=== PATIENT | male | born 1970 | race Caucasian/White ===

== ENCOUNTER 2017-10-04 16:07 | Observation (INO) | payer SELFPAY ==
[2017-10-04 16:27] LABS: #Basophils 0.1 thou/uL (0.0-0.2); #Eosinphils 0.2 thou/uL (0.0-0.7); #Lymphocytes 2.4 thou/uL (1.20-3.40); #Monocytes 0.5 thou/uL (0.11-0.59); #Neutrophils 5.1 thou/uL (1.40-6.50); %Basophils 0.9 % (0.0-1.0); %Eosinophils 2.2 % (0.0-10.0); %Lymphocytes 29.2 % (21.0-51.0); %Monocytes 5.9 % (0.0-10.0); %Neutrophils 61.8 % (42.0-75.0); Hemoglobin 13.6 g/dL (14.0-18.0); Mean Corpuscular Hemoglobin 32.8 pg (27.0-31.0); Mean Corpuscular Volume 96.5 fL (78.0-98.0); Mean Platelet Volume 7.3 fL (7.4-10.4); Platelet Count 267 thou/uL (130-400); RBC Distribution Width 12.1 % (11.5-14.5); Red Blood Cell (RBC) Count 4.16 mill/uL (4.70-6.10); White Blood Cell (WBC) Count 8.2 thou/uL (4.8-10.8)
--- NOTE | 2017-10-04 16:47 | RAD ---
CHEST ONE VIEW: History: Chest pain. FINDINGS: No comparison. Cardiac silhouette is magnified by projection. Pulmonary vasculature unremarkable. Med iastinum is midline. No lobar consolidation or evidence of pneumothorax. child monitor leads overli e the chest. IMPRESSION: No active cardiopulmonary abnormalities are demonstrated. POS: [facility]
[2017-10-04] MEDS ORDERED: Ketorolac Tromethamine 30 MG/ML VIAL ONE (16:49)
[2017-10-04] MEDS ORDERED: Acetaminophen 500 MG TAB ONE (16:49)
[2017-10-04 16:50] LABS: ALT (SGPT) 13 U/L (8-55); AST (SGOT) 12 U/L (5-34); Albumin 4.3 g/dL (3.5-5.0); Alkaline Phosphatase 81 U/L (40-150); Anion Gap 12 mmol/L (10-20); BUN (Urea Nitrogen) 16 mg/dL (8.9-20.6); Bilirubin, Total 0.2 mg/dL (0.2-1.2); CK (CPK) 233 U/L (30-200); Calc. Creatinine Clearance 0 mL/min (70-130); Carbon Dioxide 23 mmol/L (22-29); Chloride 109 mmol/L (98-107); Estimated GFR-MDRD Greater than 90; Globulin 2.6 g/dL (2.4-3.5); Glucose 109 mg/dL (70-105); Lipase 30 U/L (8-78); Potassium 4.1 mmol/L (3.5-5.1); Protein, Total 6.9 g/dL (6.0-8.3); Sodium 140 mmol/L (136-145)
[2017-10-04] MEDS ORDERED: Nitroglycerin 2% Ointment 1 INCH/1 GM Packet ONE (16:53)
[2017-10-04 16:54] LABS: CKMB 1.1 ng/mL (0-6.6); Troponin I Less than 0.010 ng/mL (< 0.028)
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
[2017-10-04 19:43] LABS: Troponin I Less than 0.010 ng/mL (< 0.028)
[2017-10-04] MEDS ORDERED: Ondansetron ODT 4 MG TAB PO PRN (19:46)
[2017-10-04] MEDS ORDERED: Ondansetron HCl/PF 4 MG/2 ML Vial IVP PRN (19:46)
[2017-10-04] MEDS ORDERED: Acetaminophen 325 MG TAB PO PRN (19:46)
[2017-10-04 23:01] LABS: Troponin I Less than 0.010 ng/mL (< 0.028)
[2017-10-04] MEDS ORDERED: Ibuprofen 800 MG TAB PO PRN (23:59)
[2017-10-05] MEDS ORDERED: Nitroglycerin 0.4 MG TAB (25 Tab Bottle) SL PRN
[2017-10-05 06:36] LABS: Cardiac Risk 7.1 (Less than 4.5); Phosphorus 2.6 mg/dL (2.3-4.7)
--- NOTE | 2017-10-05 07:40 | PDOC.FM ---
- Subjective Subjective: Complains of chest pain this am, worse with taking a deep breath in. States he had a stress test and prior cath were he was told that he had blockages but not significant enough to require a stent. - Objective MAR Reviewed: Yes Vital Signs & Weight: Vital Signs (12 hours) Pulse Resp BP Pulse Ox 10/05/17 05:10 53 L 18 122/78 97 Weight Weight 79.424 kg Result Diagrams: 10/04/17 16:17 10/04/17 16:17 <Joann Reyna - Last Filed: 10/05/17 09:08> - Objective Vital Signs & Weight: Vital Signs (12 hours) Temp Pulse Resp BP BP Pulse Ox 10/05/17 12:32 98.3 F 53 L 15 146/78 H 98 10/05/17 08:28 98.2 F 53 L 14 10/05/17 08:00 98.2 F 53 L 14 119/75 97 10/05/17 05:10 53 L 18 122/78 97 Weight Weight 79.424 kg Result Diagrams: 10/04/17 16:17 10/04/17 16:17 <Emilio Grijalva - Last Filed: 10/05/17 15:32> Phys Exam - Physical Examination Constitutional: NAD HEENT: PERRLA, moist MMs Respiratory: no wheezing, no rales, clear to auscultation bilateral Cardiovascular: RRR, no significant murmur Gastrointestinal: soft, non-tender, no distention Musculoskeletal: no edema, pulses present Neurological: non-focal, normal sensation, moves all 4 limbs Psychiatric: normal affect, A&O x 3 Skin: no rash <Joann Reyna - Last Filed: 10/05/17 09:08> Dx/Plan (1) Atypical chest pain Code(s): R07.89 - OTHER CHEST PAIN Status: Chronic (2) Coronary artery disease Code(s): I25.10 - ATHSCL HEART DISEASE OF [place] CORONARY ARTERY W/O ANG PCTRS Status: Chronic (3) HTN (hypertension) Code(s): I10 - ESSENTIAL (PRIMARY) HYPERTENSION Status: Chronic (4) History of myocardial infarction Code(s): I25.2 - OLD MYOCARDIAL INFARCTION Status: Chronic - Plan Plan: 47YO gentleman with a PMH significant for HTN, h/o [place], & CAD who presents with a chief complaint of chest pain that has been ongoing for the last 2 months, admitted for atypical chest pain. 1. Atypical Chest Pain: - Hrt Score of 4 -Hx of [place] with prior cath that did not require stent -Not compliant with statin -Trops negative x 3 - ECG reassuring with no acute ischemia changes. Will continue to monitor on telemetry overnight. - Stress test ordered -Prior records requested 2. Bradycardia: - HR of 58 on exam. - pt does endorse feeling lightheaded or dizzy with movement 3. h/o [place]: - Will start on QD ASA & high potency statin. -request records from prior hospital -stress test ordered 4. CAD: - Nursing communication order placed to request records from facilities where previous caths were done. - Will consider cardiology consult based on information that the records show us. - Will initiate meds as described above. 5. HTN: - Will watch BP for now. Latest on the floor was 158/89. Dispo: Admit for observation w/ estimated LOS ~2 days. DVT PPx: Lovenox GI PPx: None IVFs: None Diet: Heart Healthy; NPO after midnight. <Joann Reyna - Last Filed: 10/05/17 09:08> Attending Addendum - Attending Addendum Date/Time: 10/05/17 1531 I personally evaluated the patient and discussed the management with Dr. Lindsey [place]. I agree with the History, Examination, Assessment and Plan documented above with any addition or exceptions noted below. Patient with normal stress testing, no evidence of acute cardiac cause of his chest pain. Discharge and further workup in outpatient setting. <Emilio Grijalva - Last Filed: 10/05/17 15:32>
[2017-10-05] MEDS ORDERED: Regadenoson 0.4 MG/5 ML SYRINGE ONE (09:15)
[2017-10-05 12:37] VITALS: BP 146/78; TEMP 98.3
--- NOTE | 2017-10-05 13:18 | NM ---
RADIONUCLIDE STRESS REST MYOCARDIAL PERFUSION SCAN WITH CT ATTENUATION CORRECTION AND SPECT IMAGING LEFT VENTRICULAR WALL MOTION EVALUATION AND EJECTION FRACTION: History: Chest pain. FINDINGS: Homogeneous uptake throughout the left ventricular myocardium. No focal perfusion defect or reversibi lity. QGS analysis of gated SPECT images shows no focal wall motion abnormalities. Left ventricular injection fraction calculated at 59%. IMPRESSION: Normal myocardial perfusion scan. Normal LVEF. POS: [facility]
[2017-10-05] MEDS ORDERED: Ketorolac Tromethamine 30 MG/ML VIAL IM SCH (14:45)
[2017-10-05] MEDS ORDERED: Atorvastatin Calcium 40 MG TAB PO SCH (21:00)
--- NOTE | 2017-10-10 14:24 | EKG ---
Test Reason : Blood Pressure : / mmHG Vent. Rate : 074 BPM Atrial Rate : 074 BPM P-R Int : 160 ms QRS Dur : 090 ms QT Int : 380 ms P-R-T Axes : 071 031 055 degrees QTc Int : 421 ms Normal sinus rhythm Normal ECG Confirmed by JANES RIOS D.O. ([id number]), editor in chief newspaper CARMITA KEARNEY ([id number]) on 10/10/2017 2:24:06 PM Referred By: Confirmed By:JANES RIOS D.O.
== END 2017-10-05 15:07 | disposition home or self-care (01) ==
LOC: ERS 16:07 → 2SW 19:38
PROVIDERS: ADMIT Family Medicine; ATTEND Family Medicine
DX: R07.89 Other chest pain (principal); I10 Essential (primary) hypertension; I25.10 Atherosclerotic heart disease of native coronary artery without angina pectoris; I25.2 Old myocardial infarction; F17.210 Nicotine dependence, cigarettes, uncomplicated; Z88.8 Allergy status to other drugs, medicaments and biological substances
CPT/HCPCS: 36415; 71045; 78452; 80053; 80061; 82550; 82553; 83690; 83735; 84100; 84443; 84484; 85025; 93005; 93017; 94760; 96372; 96374; A9500; G0378; J1885; J2785

== ENCOUNTER 2017-10-26 18:33 | Inpatient (IN) | payer SELFPAY ==
[2017-10-26 21:22] LABS: #Basophils 0.1 thou/uL (0.0-0.2); #Eosinphils 0.1 thou/uL (0.0-0.7); #Lymphocytes 2.8 thou/uL (1.20-3.40); #Monocytes 0.5 thou/uL (0.11-0.59); #Neutrophils 4.8 thou/uL (1.40-6.50); %Basophils 0.7 % (0.0-1.0); %Eosinophils 1.6 % (0.0-10.0); %Lymphocytes 33.9 % (21.0-51.0); %Monocytes 6.2 % (0.0-10.0); %Neutrophils 57.6 % (42.0-75.0); Hemoglobin 13.2 g/dL (14.0-18.0); Mean Corpuscular HGB CONC 34.1 g/dL (32.0-36.0); Mean Corpuscular Volume 96.9 fL (78.0-98.0); Mean Platelet Volume 7.2 fL (7.4-10.4); Platelet Count 317 thou/uL (130-400); RBC Distribution Width 12.1 % (11.5-14.5); Red Blood Cell (RBC) Count 4.01 mill/uL (4.70-6.10); White Blood Cell (WBC) Count 8.3 thou/uL (4.8-10.8)
[2017-10-26 21:45] LABS: ALT (SGPT) 15 U/L (8-55); AST (SGOT) 13 U/L (5-34); Albumin 4.6 g/dL (3.5-5.0); Alkaline Phosphatase 76 U/L (40-150); Anion Gap 13 mmol/L (10-20); BUN (Urea Nitrogen) 12 mg/dL (8.9-20.6); Bilirubin, Total 0.4 mg/dL (0.2-1.2); Calc. Creatinine Clearance 0 mL/min (70-130); Calcium 9.3 mg/dL (7.8-10.44); Carbon Dioxide 26 mmol/L (22-29); Chloride 104 mmol/L (98-107); Estimated GFR-MDRD Greater than 90; Globulin 2.8 g/dL (2.4-3.5); Glucose 86 mg/dL (70-105); Potassium 4.4 mmol/L (3.5-5.1); Protein, Total 7.4 g/dL (6.0-8.3); Sodium 139 mmol/L (136-145)
[2017-10-26 22:40] LABS: Bilirubin Negative (Negative); Blood, Urine Negative (Negative); Clarity CLOUDY (Clear); Glucose, Urine (Dipstick) Negative (Negative); Leukocyte Negative (Negative); Nitrite Negative (Negative); Protein, Urine (Dipstick) Negative (Neg-Trace); Urobilinogen 0.2 mg/dL (0.2-1.0); pH, Urine 7.5 (5.0-9.0)
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
[2017-10-27] MEDS ORDERED: Ketorolac Tromethamine 30 MG/ML VIAL ONE (00:05)
[2017-10-27] MEDS ORDERED: methylPREDNISolone Sod Succ/PF 125 MG/2 ML VIAL ONE (00:48)
[2017-10-27] MEDS ORDERED: Morphine 4 MG/ML VIAL IV PRN (01:35)
[2017-10-27] MEDS: Sodium Chloride 0.9% 1,000 ML IV SCH ×2 (01:56→09:50)
[2017-10-27 02:38] VITALS: BMI 23.3
[2017-10-27] MEDS ORDERED: hydrALAZINE 20 MG/ML VIAL SLOW IVP PRN (02:58)
[2017-10-27] MEDS: Nicotine 14 MG PATCH TOP PRN (04:17)
[2017-10-27] MEDS ORDERED: Bisacodyl 10 MG SUPP PR PRN (13:10)
[2017-10-27] MEDS ORDERED: Acetaminophen 650 MG Suppository PR PRN (13:10)
[2017-10-27] MEDS ORDERED: HYDROcodone/Acetaminophen 5/325 mg Tablet PO PRN (13:10)
[2017-10-27] MEDS ORDERED: Acetaminophen 325 MG TAB PO PRN (13:10)
[2017-10-27] MEDS ORDERED: Bisacodyl 5 MG TAB PO PRN (13:10)
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
[2017-10-27] MEDS: HYDROcodone/Acetaminophen 5/325 mg Tablet PO PRN ×3 (14:30→22:23)
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
--- NOTE | 2017-10-27 19:22 | MRI ---
MRI CERVICAL SPINE WITH AND WITHOUT CONTRAST 10/27/17 HISTORY: Abnormal findings in the posterior elements in the upper thoracic spine noted on recent CT. COMPARISON: None. CORRELATION: CT cervical spine, CT thoracic spine 10/26/17. TECHNIQUE: Cervical spine MRI is performed with and without intravenous gadolinium administration. Multisequent ial, multiplanar imaging is performed. FINDINGS: With regards to the cervical vertebrae, vertebral body height is maintained. There is no fracture. Th ere is no significant STIR hyperintensity to suggest a vertebral body edema or ligamentous injury. Th ere is no abnormal enhancement of the thoracic vertebrae The visualized brain parenchyma, cervicomedullary junction, and the cervical cord have appropriate si ze and signal intensity. No abnormal enhancement. No evidence of an intramedullary lesion. C2-C3: No significant central canal stenosis or foraminal narrowing. C3-C4: Central disc protrusion. No significant central canal stenosis. Neural foramina are patent. C4-C5: No significant disc osteophyte complex. No significant central canal stenosis. Neural foramina are patent. Minimal right foraminal narrowing. C5-C6: Broad based disc osteophyte complex with a central component abuts the thecal sac. Minimal dmitry tral canal stenosis. Neural foramina are patent bilaterally. C6-C7: No significant disc osteophyte complex. No significant central canal stenosis. Foramina are pa tent. C7-T1: No significant disc osteophyte complex. No significant central canal stenosis. Neural foramina are patent. There is abnormal involvement of the T2 and T3 posterior elements. There is significant stenosis of t he thoracic cord at the T2 level. Refer to separate thoracic spine MRI report for further detail. IMPRESSION: Unremarkable pre and postcontrast cervical spine MRI. Abnormal findings in the upper thoracic spine. Refer to separate thoracic spine MRI report for further detail. POS: [facility]
--- NOTE | 2017-10-27 19:50 | MRI ---
THORACIC SPINE MRI WITH AND WITHOUT CONTRAST: 10/27/17 HISTORY: Abnormal finding in a recent thoracic spine CT in the posterior elements of the upper thoracic spine. Bone mass. Patient having symptoms of pain and weakness. COMPARISON: None. CORRELATION: CT thoracic spine 10/26/17. TECHNIQUE: Thoracic spine MRI is performed without and with intravenous gadolinium administration. Multisequenti al, multiplanar imaging is performed. FINDINGS: There is anterolisthesis of T2 upon T3. On the sagittal STIR sequence, there is mild edema involving the bilateral posterior elements at T2 and T3. There is bony expansion and involvement of the T2 spin ous process. The expanded T2 spinous process extends into the posterior central spinal canal with res ultant severe central canal stenosis at the T2 vertebral body level. There is deformity of the thorac ic cord with subtle T2 hyperintensity in the cord. No obvious cord enhancement. The remainder of the thoracic cord has appropriate size and signal intensity. Throughout the thoracic spine, neural foramina are patent. With the exception of the T2 vertebral bod y, the central spinal canal is patent. There is no significant central canal stenosis. There is intri nsic T1 and T2 hyperintense lesion involving the right aspect of T7, compatible with a small hemangio ma. Additional hemangioma in the left aspect of T10 is noted. Conus medullaris terminates beyond the T12 level. There is a T2 hyperintensity in the left kidney and right hepatic lobe which are incompletely evaluat ed. There is no evidence of cord expansion. No evidence of abnormal cord enhancement. IMPRESSION: Osseous metastases involving the posterior element at T2, specifically the T2 spinous process. There is bony expansion into the posterior central spinal canal. There is resultant severe central canal st enosis. There is nonspecific edema involving the left and right facet at T2 suggesting extension of m etastases. The overall extent of osseous involvement is best demonstrated on the recent CT. Results of the study discussed with the patient's nurse, Phuong, 10/27/17 at 6:04 p.m. Code CR POS: [facility]
[2017-10-27] MEDS: Atorvastatin Calcium 40 MG TAB PO SCH (20:12)
[2017-10-27] MEDS ORDERED: diphenhydrAMINE 25 MG CAP PO ONE (22:14)
[2017-10-28] MEDS: Nicotine 14 MG PATCH TOP PRN (05:47)
--- NOTE | 2017-10-28 05:49 | PDOC.FM ---
- Subjective Subjective: NAEO. Patient states he feels ok this morning. Denies any CP, SOB, N/V/D or constipation. Still endorses "numbness or tingling" from his waist down as well as having the abilty to control bladder and bowels. Endorses continued difficulty walking 2/2 poor balance. No new complaints. - Objective MAR Reviewed: Yes Vital Signs & Weight: Vital Signs (12 hours) Temp Pulse Resp BP BP Pulse Ox 10/28/17 03:57 97.8 F 63 16 143/76 H 98 10/27/17 23:14 97.6 F 65 18 156/85 H 96 10/27/17 20:10 97.9 F 62 18 10/27/17 20:00 97.9 F 62 18 149/86 H 97 Weight Weight 78.1 kg I&O: 10/26/17 10/27/17 10/28/17 06:59 06:59 06:59 Intake Total 925 Output Total 425 Balance 500 Result Diagrams: 10/26/17 21:17 10/26/17 21:17 <Francisca Cabrera - Last Filed: 10/28/17 09:19> - Objective Vital Signs & Weight: Vital Signs (12 hours) Temp Pulse Resp BP BP BP Pulse Ox 10/28/17 11:06 97.3 F L 56 L 16 154/93 H 94 L 10/28/17 09:05 97.8 F 54 L 16 10/28/17 07:29 97.8 F 54 L 16 144/82 H 97 10/28/17 03:57 97.8 F 63 16 143/76 H 98 Weight Weight 78.1 kg I&O: 10/27/17 10/28/17 10/29/17 06:59 06:59 06:59 Intake Total 1275 Output Total 425 Balance 850 Result Diagrams: 10/26/17 21:17 10/26/17 21:17 <Emilio Grijalva - Last Filed: 10/28/17 11:28> Phys Exam - Physical Examination Constitutional: NAD HEENT: moist MMs Neck: supple, full ROM Respiratory: no wheezing, no rales, no rhonchi, clear to auscultation bilateral Cardiovascular: RRR, no significant murmur Gastrointestinal: soft, non-tender, no distention, positive bowel sounds Musculoskeletal: no edema, pulses present Neurological: normal sensation, moves all 4 limbs Psychiatric: normal affect, A&O x 3 Skin: no rash, normal turgor <Francisca Cabrera - Last Filed: 10/28/17 09:19> Dx/Plan (1) Lytic bone lesions on xray Code(s): M89.9 - DISORDER OF BONE, UNSPECIFIED Status: Acute (2) Coronary artery disease Code(s): I25.10 - ATHSCL HEART DISEASE OF [place] CORONARY ARTERY W/O ANG PCTRS Status: Chronic (3) HTN (hypertension) Code(s): I10 - ESSENTIAL (PRIMARY) HYPERTENSION Status: Chronic - Plan Plan: 47YOM w/ a PMH significant for HTN and CAD who presented to the ED w/ a CC of unintentional weight loss and gait/balance disturbance who was found to have a destructive lesion between T1-T2 on imaging. 1. Destructive bony lesion between T1-T2 on MRI 2/2 infection vs. malignancy: - Neurosurgery consulted, appreciate recs. Awaiting recommendations but anticipate biopsy will be necessary to determine exact etiology of lesion. - Will continue with tylenol and norco for pain control and IV steroids to help with associated inflammation. - Will continue with docusate for any associated constipation. 2. CAD: - Aware, will continue home statin dose but hold ASA for potential surgery. 3. HTN: - Aware, will continue IV hydralazine for BP control. 4. 3cm Adrenal mass: - Will await recs from neurosurgery before proceeding w/ further w/u. <Francisca Cabrera - Last Filed: 10/28/17 09:19> Attending Addendum - Attending Addendum Date/Time: 10/28/17 1126 I personally evaluated the patient and discussed the management with Dr. Cabrera. I agree with the History, Examination, Assessment and Plan documented above with any addition or exceptions noted below. Patient here with continued pain and neurological symptoms. His MRI shows a likely malignant process that is causing impingement on his thoracic spinal cord. We are changing him to Dexamethasone to help with mass effect, but awaiting evaluation by Neurosurgery that has been urgently needed but thus far has not occurred. Continue pain control as needed and further mgmt per NSGY recs. <Emilio Grijalva - Last Filed: 10/28/17 11:28>
[2017-10-28] MEDS: HYDROcodone/Acetaminophen 5/325 mg Tablet PO PRN ×5 (05:50→22:06)
[2017-10-28] MEDS ORDERED: methylPREDNISolone Sod Succ/PF 125 MG/2 ML VIAL IVP SCH (09:00)
[2017-10-28] MEDS ORDERED: Bupropion 150 MG SR TAB PO SCH (09:00)
[2017-10-28] MEDS: Dexamethasone 4 MG TAB PO SCH ×3 (11:28→23:32)
[2017-10-28] MEDS: Cyclobenzaprine 10 MG TAB PO PRN ×2 (11:28→20:37)
--- NOTE | 2017-10-28 15:26 | CON ---
DATE OF CONSULTATION: 10/28/2017 NEUROSURGICAL SERVICE HISTORY OF PRESENT ILLNESS: Mr. Radford is a 47-year-old man who [facility] [place] for severe upper thoracic lower cervical back pain and associated truncal numbness. He reports to me that over the course of the last roughly 2 weeks, he has had progressive symptoms in cluding initially truncal numbness, but now extended down into his bilateral lower extremities in the last 7 days or so. He has also started to experience some unsteadiness at work and while walking. This is all with an MRI scan that reveals a large compressive mass originating from the spinou s process and posterior elements of the thoracic 2 vertebrae. There is severe central canal stenosis associated this from bony extension into the canal posteriorly at this level. There is also what ap pears to be perhaps some signal change within the cord. PHYSICAL EXAMINATION: He has normal reflexes at the patellar bilaterally. He has two beats of ankle clonus bilaterally which is normal limits. He does have some decrease in altered sensation to the e ntire chest and trunk as well as to the proximal lower extremities bilaterally. His exam strength; h owever of his lower extremities is 5/5 in all movements of the bilateral lower extremities and bilate ral upper extremities. He does walk for me, although he definitively has some mild ataxia and unstea diness. Some of this is guarding from pain when he is standing upright. Neurosurgery's recommendati on will likely be surgical decompression of the mass with biopsy. Before doing this surgical p erasto, we will need to get and obtain a CT chest, abdomen and pelvis to look for possible primary, but this could represent osseous primary mass, discussed this with the patient. We will also discuss with Dr. Shepherd for planning. Eduardo Lopez PA-C dictating for Joseph Shepherd M.D.
--- NOTE | 2017-10-28 15:29 | CT ---
CHEST CT WITH CONTRAST: ABDOMEN CT WITH CONTRAST: PELVIS CT WITH CONTRAST: HISTORY: Metastatic lesions in the upper thoracic spine. Severe central canal stenosis. FINDINGS: CHEST: Abnormal metastatic lesions involving the T2 vertebral body with severe central canal stenosi s. There is associated increased soft tissue density with severe central canal compromise. No mediastinal mass, lymphadenopathy, or hematoma. Heart size is within normal limits. No pericardi al effusion. The central pulmonary arteries are patent. The tracheal and central bronchi are patent. There is a 3 mm nodule in the middle lobe, of doubtful significance. No suspicious masses in the left or right lung. Minimal dependent atelectatic changes . No pleural effusion or pneumothorax. ABDOMEN: The portal vein is patent. The liver, spleen, pancreas, and left adrenal gland are unremar kable. There is a solid mass involving the right adrenal gland, measuring 3 x 2.5 cm. No gastrohepatic, retrocrural, or periportal lymphadenopathy. No mesenteric mass, lymphadenopathy, free air, or free fluid. No evidence of bile obstruction. Normal ileocecal junction. caliber appendix. Scattered fe brigitte material in a nondistended, nondilated colon. Bilaterally, no evidence of hydronephrosis. The right kidney is unremarkable. There are two discrete solid masses with areas of cystic degeneration involving the left kidney. The re is a mass in the mid pole left kidney with a lateral exophytic extension, measuring 3.8 x 4.2 x 4. 6 cm. There is a second more cystic lesion in the inferior pole of the left kidney, measuring 5.4 x 4.4 x 4.2 cm. The inferior components have enhancing septae and possible solid components. PELVIS: No mass, lymphadenopathy, free air, or free fluid. Unremarkable urinary bladder. Osseous metastases of the T2 vertebral body, as described above. IMPRESSION: 1. T2 osseous metastases. 2. 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 3. Enlarged right adrenal gland, compatible with metastases. Given the finding at T2, a neurosurgical consultation/consultation with radiation oncology is recomme nded to alleviate the severe central canal stenosis. POS: [facility]
[2017-10-28] MEDS: Atorvastatin Calcium 40 MG TAB PO SCH (20:44)
[2017-10-28] MEDS: diphenhydrAMINE 25 MG CAP PO PRN (23:32)
[2017-10-29] MEDS: HYDROcodone/Acetaminophen 5/325 mg Tablet PO PRN ×2 (03:18→10:03)
[2017-10-29] MEDS: Dexamethasone 4 MG TAB PO SCH ×4 (05:21→23:32)
[2017-10-29] MEDS: Cyclobenzaprine 10 MG TAB PO PRN ×3 (05:21→22:49)
[2017-10-29] MEDS ORDERED: Morphine ER 15 MG TAB PO PRN (06:51)
--- NOTE | 2017-10-29 06:54 | PDOC.FM ---
- Subjective Subjective: NAEO. Patient endorses 6/10 back pain as well as anxiety. Says his fiance is making him very anxious as she is a very anxious person. Regarding his symptoms , his numbness and balance problems are still present w/o any improvement but he states that his restless legs improved overnight. Discussed results from yesterday's scan and patient took the news quite well. Is just ready to have some answers. Is aware of neurosurgery's plan for decompression and biopsy and on board with that plan. - Objective MAR Reviewed: Yes Vital Signs & Weight: Vital Signs (12 hours) Temp Pulse Resp BP BP Pulse Ox 10/29/17 03:16 97.9 F 58 L 16 146/73 H 94 L 10/28/17 23:36 97.6 F 60 18 141/87 H 94 L 10/28/17 22:11 71 156/73 H 10/28/17 20:32 98.0 F 70 18 177/80 H 95 10/28/17 20:30 95 Weight Weight 78.1 kg I&O: 10/27/17 10/28/17 10/29/17 06:59 06:59 06:59 Intake Total 1275 2855 Output Total 425 Balance 850 2855 Result Diagrams: 10/26/17 21:17 10/26/17 21:17 <Francisca Cabrera - Last Filed: 10/29/17 08:42> - Objective Vital Signs & Weight: Vital Signs (12 hours) Temp Pulse Resp BP BP Pulse Ox 10/29/17 08:00 98.2 F 67 16 145/74 H 95 10/29/17 03:16 97.9 F 58 L 16 146/73 H 94 L Weight Weight 78.1 kg I&O: 10/28/17 10/29/17 10/30/17 06:59 06:59 06:59 Intake Total 1275 2855 Output Total 425 Balance 850 2855 Result Diagrams: 10/26/17 21:17 10/26/17 21:17 <Emilio Grijalva - Last Filed: 10/29/17 11:46> Phys Exam - Physical Examination Constitutional: NAD HEENT: moist MMs Neck: supple, full ROM Respiratory: no wheezing, no rales, no rhonchi, clear to auscultation bilateral Cardiovascular: RRR, no significant murmur Gastrointestinal: soft, non-tender, no distention, positive bowel sounds Musculoskeletal: no edema Neurological: non-focal, normal sensation, moves all 4 limbs 5/5 strength throughout unchanged from yesterday. Psychiatric: normal affect, A&O x 3 Skin: no rash, normal turgor <Francisca Cabrera - Last Filed: 10/29/17 08:42> Dx/Plan (1) Lytic bone lesions on xray Code(s): M89.9 - DISORDER OF BONE, UNSPECIFIED Status: Acute (2) Coronary artery disease Code(s): I25.10 - ATHSCL HEART DISEASE OF [place] CORONARY ARTERY W/O ANG PCTRS Status: Chronic (3) HTN (hypertension) Code(s): I10 - ESSENTIAL (PRIMARY) HYPERTENSION Status: Chronic - Plan Plan: 47YOM w/ a PMH significant for HTN and CAD who presented to the ED w/ a CC of unintentional weight loss and gait/balance disturbance who was found to have a destructive lesion between T1-T2 on imaging. 1. Suspected renal malignancy with metastases to bone @ T2 and right adrenal gland: - CT chest/abd/pelvis from yesterday significant for 2 left primary malignancies of L kidney w/ right adrenal and T2 osseous mets. - Neurosurgery consulted, appreciate recs. Plan to take patient back for decompression and biopsy tomorrow. - Will consult urology today. - Will continue with tylenol and norco for pain control and IV steroids to help with associated inflammation. Will also add PO morphine Q12H for pain control. - Will continue with docusate for any associated constipation. 2. CAD: - Aware, will continue home statin dose but hold ASA for potential surgery. 3. HTN: - Aware, will continue IV hydralazine for BP control. 4. Anxiety: - Will start on ativan 1mg PRN for anxiety and consider consulting a Weaving Professor. <Francisca Cabrera - Last Filed: 10/29/17 08:42> Attending Addendum - Attending Addendum Date/Time: 10/29/17 1864 I personally evaluated the patient and discussed the management with Dr. Cabrera. I agree with the History, Examination, Assessment and Plan documented above with any addition or exceptions noted below. Patient here with what appears to be renal malignancy with metastasis to the adrenal glands and thoracic spine causing spinal cord compression and lower extremity neurological deficit. NSGY in on board and tentative plans for decompression tomorrow. Due to results of the abdomen CT, will consult Urology to see if he is a surgical candidate. Big goal for today is adequate pain control. We are adding Morphine oral therapy and will escalate as needed. Spiritual care will be consulted. Continue dexamethasone to help with mass effect and minimize cytotoxic edema on his spinal cord. Further mgmt per Urology and NSGY recs. Will need Oncology consult in near future. <Emilio Grijalva - Last Filed: 10/29/17 11:46>
[2017-10-29] MEDS: Lorazepam 1 MG TAB PO PRN ×2 (08:19→14:11)
[2017-10-29] MEDS: Nicotine 14 MG PATCH TOP PRN (08:20)
[2017-10-29] MEDS: diphenhydrAMINE 25 MG CAP PO PRN ×2 (10:07→14:11)
[2017-10-29] MEDS: Morphine 4 MG/ML VIAL SLOW IVP PRN ×2 (17:32→21:42)
[2017-10-29] MEDS: HYDROcodone/Acetaminophen 10/325 mg Tablet PO SCH ×2 (17:32→23:33)
[2017-10-29] MEDS: ALPRAZolam 1 MG TAB PO PRN (18:44)
[2017-10-29] MEDS: Atorvastatin Calcium 40 MG TAB PO SCH (20:27)
[2017-10-29] MEDS: Calcium Carbonate 500 MG ChewTAB PO PRN (23:32)
[2017-10-30] MEDS: Morphine 4 MG/ML VIAL SLOW IVP PRN ×2 (01:42→21:32)
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
[2017-10-30] MEDS: Calcium Carbonate 500 MG ChewTAB PO PRN (03:43)
[2017-10-30] MEDS: ALPRAZolam 1 MG TAB PO PRN ×2 (03:48→21:32)
[2017-10-30] MEDS: Dexamethasone 4 MG TAB PO SCH ×4 (05:47→21:31)
[2017-10-30] MEDS: HYDROcodone/Acetaminophen 10/325 mg Tablet PO SCH ×3 (05:47→17:29)
--- NOTE | 2017-10-30 05:59 | PDOC.FM ---
- Subjective Subjective: NAEO. Patient was not in room this AM as he had already been taken back for surgery for decompression. Jani was in the room and states patient has been very anxious and on edge since meeting with urologist who discussed possibly needing to remove his kidney at some point. Says his pain was better controlled overnight though. - Objective MAR Reviewed: Yes Vital Signs & Weight: Vital Signs (12 hours) Temp Pulse Resp BP Pulse Ox 10/30/17 03:59 97.9 F 71 20 167/95 H 98 10/30/17 00:23 97.8 F 67 20 154/80 H 94 L 10/29/17 20:15 96 10/29/17 20:00 98 F 84 20 149/75 H 96 Weight Weight 78.1 kg I&O: 10/28/17 10/29/17 10/30/17 06:59 06:59 06:59 Intake Total 1275 2855 2465 Output Total 425 Balance 850 2855 2465 Result Diagrams: 10/26/17 21:17 10/26/17 21:17 <Francisca Cabrera - Last Filed: 10/30/17 08:56> - Objective Vital Signs & Weight: Vital Signs (12 hours) Temp Pulse Ox 10/30/17 12:02 97.8 F 10/30/17 12:00 98 Weight Weight 78.1 kg I&O: 10/29/17 10/30/17 10/31/17 06:59 06:59 06:59 Intake Total 2855 2465 500 Output Total 10 Balance 2855 2465 490 Result Diagrams: 10/26/17 21:17 10/26/17 21:17 <Emilio Grijalva - Last Filed: 10/30/17 16:25> Phys Exam - Physical Examination No PE done as patient was in surgery. Will examine later today. <Francisca Cabrera - Last Filed: 10/30/17 08:56> Dx/Plan (1) Renal cell carcinoma of left kidney Code(s): C64.2 - MALIGNANT NEOPLASM OF LEFT KIDNEY, EXCEPT RENAL PELVIS Status : Suspected (2) Lytic bone lesions on xray Code(s): M89.9 - DISORDER OF BONE, UNSPECIFIED Status: Acute (3) Coronary artery disease Code(s): I25.10 - ATHSCL HEART DISEASE OF [place] CORONARY ARTERY W/O ANG PCTRS Status: Chronic (4) HTN (hypertension) Code(s): I10 - ESSENTIAL (PRIMARY) HYPERTENSION Status: Chronic (5) Anxiety Code(s): F41.9 - ANXIETY DISORDER, UNSPECIFIED Status: Acute (6) Metastasis to adrenal gland Code(s): C79.70 - SECONDARY MALIGNANT NEOPLASM OF UNSPECIFIED ADRENAL GLAND Status: Acute Qualifiers: Laterality: right Qualified Code(s): C79.71 - Secondary malignant neoplasm of right adrenal gland - Plan Plan: 47YOM w/ a PMH significant for HTN and CAD who presented to the ED w/ a CC of unintentional weight loss and gait/balance disturbance who was found to have a destructive lesion between T1-T2 on imaging & subsequently suspected RCC with mets to right adrenal gland and spine. 1. Suspected renal malignancy with metastases to bone @ T2 and right adrenal gland: - CT chest/abd/pelvis from yesterday significant for 2 left primary malignancies of L kidney w/ right adrenal and T2 osseous mets. - Neurosurgery consulted, appreciate recs. Patient taken back for decompression and biopsy this AM. - Urology consulted yesterday, appreciate recs. Stated CA is likely metastatic RCC stage [id number] and recommended proceeding with surgical decompression before addressing the affecting kidney. Stated patient will need to wait a few weeks s/ p surgery for proper healing before mostly likely needing to initiate chemotherapy. - Will consider consulting oncology today. - Will continue with tylenol, flexeril, and JAHAIRA norco w/ breakthrough morphine for pain control and IV steroids to help with associated inflammation. - Will continue with docusate for any associated constipation. 2. CAD: - Aware, will continue home statin dose but hold ASA for potential surgery. 3. HTN: - Aware, will continue IV hydralazine for BP control. 4. Anxiety: - Worsened overnight per patient's fiance. - Will continue on Xanax PRN per patient's request. - Manufacturing Quality Engineer consulted yesterday. <Francisca Cabrera - Last Filed: 10/30/17 08:56> Attending Addendum - Attending Addendum Date/Time: 10/30/17 1500 I personally evaluated the patient and discussed the management with Dr. Cabrera. I agree with the History, Examination, Assessment and Plan documented above with any addition or exceptions noted below. Patient seen with Dr. Cabrera this afternoon after his surgery. He apparently had a significant blood loss during the decompression and was transferred to the CCU. He is currently doing well with stable vitals. He does not mention much pain, but is instead focussing on his anxiety due to his financial condition and new diagnosis. We spent a significant amount of time discussing this as well as options moving forward. We continue to wait for his pathology results that were obtained today. Oncology has been consulted. Further mgmt per NSGY recs and Onc recs. Urology awaiting biopsy results before further management options. Physical exam as below: Gen: alert and oriented, NAD Heart: RRR, no m/r/g Lungs: CTAB GI: abdomen soft, nontender, nondistended Ext: no c/c/e Neuro: GCS15, motor and sensory grossly intact Psych: anxious mood, blunted affect <Emilio Grijalva - Last Filed: 10/30/17 16:25>
[2017-10-30] MEDS ORDERED: Bacitracin Zinc Ointment 30 gm TUBE ONE (06:48)
[2017-10-30] MEDS ORDERED: Sodium Chloride 0.9% 0 ML ONE (06:48)
[2017-10-30] MEDS ORDERED: Fentanyl 100 MCG/2 ML VIAL ONE ×5 (07:08→11:28)
[2017-10-30] MEDS ORDERED: Midazolam HCl 2 mg/2 ml Vial ONE (07:08)
[2017-10-30] MEDS ORDERED: Sodium Chloride 0.9% 20 ML ONE (07:48)
[2017-10-30] MEDS ORDERED: CEFAZOLIN 1 GM VIAL ONE (07:48)
--- NOTE | 2017-10-30 07:49 | PRG ---
DATE OF SERVICE: 10/30/2017 I met with Mr. Radford this morning, who is a 47-year-old male that presented with a slowly progressive course of lower extremity altered sensation and unsteadiness of gait. He has a complex family medical history of neoplasm and further workup here revealed the presence of a T2 compressive lesion, located posteriorly along the spinal canal with compression of the underlying spinal cord. He has also, on further workup, had lesions identified within the kidney. He has been seen by our urologist and is currently being managed by [facility]. He does have underlying T2 signal change within the spinal cord. He states that , over the past 1-2 weeks, he started to note altered sensation in the lower extremities, which also extends up to approximately an upper thoracic sensory level. He also reports lower extremity weakness and imbalance. The plan today, as discussed with him in detail, will be a posterior thoracic decompression for the purposes of decompressing the spinal cord, but also confirming diagnosis of what is likely to be a renal cell metastasis. I did discuss with him the risks, benefits, and alternatives to surgery, and he did provide informed consent. LEONARDO
[2017-10-30] MEDS ORDERED: Thrombin 5000 UNITS/5 ML VIAL ONE ×3 (08:00→09:47)
[2017-10-30] MEDS ORDERED: Albumin 5% 500 ML ONE (09:02)
[2017-10-30] MEDS ORDERED: Rocuronium Bromide 50 MG/5 ML VIAL ONE (09:20)
[2017-10-30] MEDS ORDERED: Bupivacaine HCl 0.5%/Epinephrine 1:200,000/PF 30 ml Vial ONE (09:30)
[2017-10-30] MEDS ORDERED: Glycopyrrolate 0.2 MG/ML 5 ML SYRINGE ONE (10:06)
[2017-10-30] MEDS ORDERED: Dexamethasone 20 MG/5 ML VIAL ONE (10:06)
[2017-10-30] MEDS ORDERED: PHENYLEPHRINE-NS 100 MCG/ML 10 ML SYRINGE ONE (10:06)
[2017-10-30] MEDS ORDERED: Lidocaine 1% PF 5 ML VIAL ONE (10:06)
[2017-10-30] MEDS ORDERED: PROPOFOL 200 MG/20 ML VIAL ONE (10:06)
[2017-10-30] MEDS ORDERED: ePHEDrine/0.9% NaCl/PF SYRINGE 50 mg/10 ml ONE (10:06)
[2017-10-30] MEDS ORDERED: HYDROmorphone 0.5 MG/0.5 ML SYRINGE ONE (10:17)
[2017-10-30] MEDS ORDERED: HYDROmorphone 2 MG/ML VIAL ONE (10:28)
[2017-10-30] MEDS ORDERED: HYDROmorphone 2 MG/ML VIAL SLOW IVP PRN (10:52)
--- NOTE | 2017-10-30 12:17 | OP ---
DATE OF SERVICE: 10/30/2017 SURGEON: Joseph Shepherd M.D. CAR SANDER: Eduardo Lopez PA-C. INDICATION: Obtain diagnosis and prevent further neurologic decline. PREOPERATIVE DIAGNOSIS: T2 compressive metastatic lesion. PROCEDURE: Thoracic decompression with a partial excision of lesion. ANESTHESIA: General. PROCEDURE IN DETAIL: The patient was brought into the operating room and placed under general anesth esia. He was flipped from a supine or prone position on the operating room table. A linear incision was planned, centered around the T2 area. After prepping and draping and after an appropriate opera tive pause, the incision was created. The soft tissues were swept away from midline. Self-retaining retractors were placed in the wound for optimal exposure. After confirming the appropriate level wi th C-arm fluoroscopy, we carefully dissected through a partially eroded spinous process and lamina. The entire case was impacted by an extreme and copious amount of bleeding. This more than doubled no rmal operative time and a surgical modifier will be applied. We spent a lot of time dissecting and r emoving the soft tissue as well as the remaining bony elements of the posterior elements including th e spinous process and the lamina. Due to extensive amount of bleeding, I decided not to move further and was satisfied with a partial excision, which I believe adequately decompress the spinal canal. An extensive amount of time was spent obtaining hemostasis. There was copious irrigation. A subfasc ial drain was placed and brought out through a separate puncture site from within the skin. The tiss ue was sent off for pathologic analysis. The wound was then closed in anatomic layers and a pressure dressing was applied. There were no known procedural complications.
[2017-10-30] MEDS: Sodium Chloride 0.9% 1,000 ML IV SCH (13:02)
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
--- NOTE | 2017-10-30 17:15 | PRG ---
DATE OF SERVICE: 10/30/2017 SUBJECTIVE: The patient was sleeping at the time of his visit. He did not wake up during my examina tion, he is responsive and will shuffle around, but apparently is very tired. He underwent a decompr essive laminectomy by Dr. Shepherd today. OBJECTIVE: VITAL SIGNS: Temperature 97.8, pulse 71, respirations 20, blood pressure 167/95, saturation 98% on r oom air. GENERAL: Sleeping, not conversive as the patient seems to be quite tired from his surgery. CHEST: No increased work of breathing. CARDIOVASCULAR: Regular rate and rhythm. ABDOMEN: Soft, nontender, nondistended. EXTREMITIES: No clubbing, cyanosis or edema. There is no Burr catheter evident. IMAGING: Bone scan was not done due to his recent surgery. It was asked if his bone scan could be p ostponed to a later date. ASSESSMENT AND PLAN: A 47-year-old white male with metastatic renal cell carcinoma with cord radu larisa, status post decompressive laminectomy. His bone scan is not emergent, but I figured it could b e done while he was in the hospital. Due to his recent surgery, if he can undergo a bone scan right now, he can always do this later to complete a staging. From my standpoint, nothing further needs to be done from a urologic standpoint on this admission. I will go ahead and sign off on this case, bu t the patient will need follow up with me as an outpatient. I would recommend followup in [facility] 2-3 weeks, but the patient will need prompt followup with Medical Oncology to start chemotherapy once he has recovered from his surgical incisions. Discussion for cytoreductive nephrectomy can be d iscussed at a later date pending his prognosis and response to chemotherapy with Medical Oncology. P bertha reconsult if there are any other questions.
[2017-10-30] MEDS: ALPRAZolam 0.5 MG TAB PO PRN (18:08)
[2017-10-30 18:52] LABS: Band 3 % (5-11); Hemoglobin 11.7 g/dL (14.0-18.0); Hypochromia SLIGHT = 6-15 cells (100X) (0-5/hpf); Lymphocytes 5 % (21-51); MDiff Complete? YES; Mean Corpuscular HGB CONC 33.4 g/dL (32.0-36.0); Mean Corpuscular Hemoglobin 32.1 pg (27.0-31.0); Mean Corpuscular Volume 96.2 fL (78.0-98.0); Mean Platelet Volume 8.1 fL (7.4-10.4); Monocytes 2 % (0-10); Neutrophil 90 % (42-75); PLT Morphology Comment Appears Adequate; Platelet Count 269 thou/uL (130-400); RBC Distribution Width 12.9 % (11.5-14.5); Red Blood Cell (RBC) Count 3.64 mill/uL (4.70-6.10); White Blood Cell (WBC) Count 17.9 thou/uL (4.8-10.8)
--- NOTE | 2017-10-30 19:14 | CON ---
DATE OF CONSULTATION: 10/30/2017 REASON FOR CONSULTATION: Metastatic disease. HISTORY OF PRESENT ILLNESS: Mr. Radford is a 47-year-old male, who presented to the emergency room wit h back pain, chest pain, and numbness in his legs. He underwent a CT scan of the spine, there was a destructive lesion at the T1 and T2 level, there was apparent cord compression, there was a right adr enal mass. He then underwent a cervical spine MRI, which confirmed the metastatic lesion involving t he posterior element of T2, severe central canal stenosis likely responsible for his lower extremity symptoms. Chest, abdomen, and pelvis CT performed showed 2 separate primary malignancies of the left kidney, one discrete mass was on the mid pole of the left kidney measuring 3.8 x 4.2 x 4.6. There w as a second cystic lesion of the inferior pole measuring 5.4 x 4.4 x 4.2. There was an enlarged righ t adrenal gland. Neurosurgery was consulted and the patient underwent a thoracic decompression with partial excision of the lesion. Pathology was sent and is currently pending. The patient states he was in his usual state of health until several weeks ago when he began to have the lower extremity nu mbness. He was complaining of numbness and tingling in his gluteus down his legs and in his feet. Anita Medina seen the patient and feels that he could have metastatic renal cell carcinoma. PAST MEDICAL HISTORY: 1. Coronary artery disease. 2. Hypertension. PAST SURGICAL HISTORY: 1. Facial reconstruction. 2. Left toe reattachment. ALLERGIES: ZOFRAN and COMPAZINE. FAMILY HISTORY: His brother had a bone cancer at the age of 20. His mother had jaw cancer. His unc le who had an unknown type of cancer. SOCIAL HISTORY: He is single, lives with his significant other. A [id number] history of smoking. Denies alcohol or illicit drug use. REVIEW OF SYSTEMS: Twelve-point review of systems is negative except for noted in HPI. PHYSICAL EXAMINATION: VITAL SIGNS: Temperature 97.8, pulse is 66, respiratory rate 13, blood pressure is 120/59. He is 97 % on room air. GENERAL: Well-developed, well-nourished male, in no acute distress. HEENT: Normocephalic, atraumatic. Pupils are equal and reactive to light. NECK: Supple. CARDIOVASCULAR: Regular rate and rhythm. LUNGS: Clear. ABDOMEN: Soft, nontender, bowel sounds are positive. EXTREMITIES: There is no clubbing, cyanosis or edema. SKIN: No rash. HEMATOLOGIC: No petechia or purpura. NEUROLOGIC: He has weakness in his lower extremities. PERTINENT LABORATORY AND X-RAYS: Current WBCs 8.3, hemoglobin 13.2, hematocrit 38.9, platelet count is 317,000. Sodium is 139, potassium 4.4, chloride 104, CO2 is 26, BUN is 12, creatinine is 0.88, ca lcium is 9.3, total bilirubin is 0.4, AST is 13, ALT is 15, alkaline phosphatase is 76, serum total p rotein 7.4, albumin 4.6, globulin 2.8. Urine is negative. Radiology per HPI. IMPRESSION: 1. Metastatic bone lesion of T1 and T2, status post decompression and partial resection. 2. Left kidney lesion. DISCUSSION: Plan to wait for pathology for any further recommendations. He will likely need a consu ltation by Radiation Oncology sometime next week once the path is returned. We will ask case finishing machine adjuster to assist with financial needs as patient is uninsured and will need chemo and radiation for treatme nt of his malignancy. Thank you for the consult. We will return to see the patient once the path is returned.
[2017-10-30] MEDS: CEFAZOLIN/Water 2 GM/20 ML SYRINGE SLOW IVP SCH (21:30)
[2017-10-30] MEDS: Cyclobenzaprine 10 MG TAB PO PRN (21:31)
[2017-10-30] MEDS: Atorvastatin Calcium 40 MG TAB PO SCH (21:31)
[2017-10-31] MEDS: HYDROcodone/Acetaminophen 10/325 mg Tablet PO SCH ×5 (01:28→23:49)
[2017-10-31] MEDS: Dexamethasone 4 MG TAB PO SCH ×4 (03:35→19:51)
[2017-10-31] MEDS: Sodium Chloride 0.9% 1,000 ML IV SCH (03:35)
[2017-10-31] MEDS: CEFAZOLIN/Water 2 GM/20 ML SYRINGE SLOW IVP SCH ×3 (03:36→21:34)
[2017-10-31] MEDS: Morphine 4 MG/ML VIAL SLOW IVP PRN ×4 (03:42→19:51)
--- NOTE | 2017-10-31 04:59 | PDOC.FM ---
- Subjective Subjective: No overnight events. Pt has no complaints this morning. Reports medication for anxiety is helping as he feels very anxious with medical problems and social concerns. His pain is well controlled. Denies SOB, nausea, vomiting. Tolerating PO intake. - Objective MAR Reviewed: Yes Vital Signs & Weight: Vital Signs (12 hours) Temp Resp Pulse Ox 10/31/17 02:57 98.0 F 12 95 10/31/17 02:00 98.0 F 10/31/17 00:00 95 10/30/17 23:29 98.3 F 12 96 10/30/17 23:15 98.3 F 10 L 95 10/30/17 20:00 98.3 F 95 Weight Weight 78.1 kg Most Recent Monitor Data Heart Rate from ECG 53 NIBP 115/75 NIBP BP-Mean 88 Respiration from ECG 12 SpO2 96 I&O: 10/29/17 10/30/17 10/31/17 06:59 06:59 06:59 Intake Total 2855 2465 2447 Output Total 2140 Balance 2855 2465 307 Result Diagrams: 10/31/17 05:51 10/26/17 21:17 <Anastasiya Shah - Last Filed: 10/31/17 10:56> - Objective Vital Signs & Weight: Vital Signs (12 hours) Temp Resp Pulse Ox 10/31/17 05:00 98.2 F 10/31/17 02:57 98.0 F 12 95 10/31/17 02:00 98.0 F 10/31/17 00:00 95 10/30/17 23:29 98.3 F 12 96 10/30/17 23:15 98.3 F 10 L 95 Weight Weight 78.1 kg Most Recent Monitor Data Heart Rate from ECG 56 NIBP 134/76 NIBP BP-Mean 95 Respiration from ECG 17 SpO2 96 I&O: 10/30/17 10/31/17 11/01/17 06:59 06:59 06:59 Intake Total 2465 2467 Output Total 2165 Balance 2465 302 Result Diagrams: 10/31/17 05:51 10/26/17 21:17 <Emilio Grijalva - Last Filed: 10/31/17 11:02> Phys Exam - Physical Examination Constitutional: NAD Respiratory: no wheezing, clear to auscultation bilateral Cardiovascular: RRR Gastrointestinal: soft, non-tender, positive bowel sounds Musculoskeletal: no edema, pulses present Psychiatric: normal affect, A&O x 3 Skin: cap refill <2 seconds <PabloAnastasiya - Last Filed: 10/31/17 10:56> Dx/Plan (1) Anxiety Code(s): F41.9 - ANXIETY DISORDER, UNSPECIFIED Status: Acute (2) Lytic bone lesions on xray Code(s): M89.9 - DISORDER OF BONE, UNSPECIFIED Status: Acute (3) Metastasis to adrenal gland Code(s): C79.70 - SECONDARY MALIGNANT NEOPLASM OF UNSPECIFIED ADRENAL GLAND Status: Acute Qualifiers: Laterality: right Qualified Code(s): C79.71 - Secondary malignant neoplasm of right adrenal gland (4) Renal cell carcinoma of left kidney Code(s): C64.2 - MALIGNANT NEOPLASM OF LEFT KIDNEY, EXCEPT RENAL PELVIS Status : Suspected (5) Coronary artery disease Code(s): I25.10 - ATHSCL HEART DISEASE OF [place] CORONARY ARTERY W/O ANG PCTRS Status: Chronic (6) HTN (hypertension) Code(s): I10 - ESSENTIAL (PRIMARY) HYPERTENSION Status: Chronic (7) History of myocardial infarction Code(s): I25.2 - OLD MYOCARDIAL INFARCTION Status: Chronic - Plan Plan: 47yo male with pmh of HTN and CAD who presented with unintentional weight loss and gait/balance disturbance, found to have a destructive lesion between T1-T2 on imaging & subsequently suspected RCC with mets to right adrenal gland and spine. Suspected renal malignancy with metastases to bone @ T2 and right adrenal gland s/p partial thoracic decompressive laminectomy - CT chest/abd/pelvis 10/28/17: 2 left primary malignancies of L kidney w/ right adrenal and T2 osseous mets. - Neurosurgery following, appreciate recs - Urology believes CA is likely metastatic RCC stage [id number] and recommended surgical decompression before addressing the affecting kidney. Pt will need to wait a few weeks s/p surgery for proper healing before mostly likely needing to initiate chemotherapy. - Consulted Onc, apprec recs - Continue tylenol, flexeril, scheduled norco with breakthrough morphine for pain control and IV steroids to help with associated inflammation. - Continue docusate for associated constipation - Decompressive laminectomy preformed yesterday, complicated by copious amts of blood loss. Will plan to trend Hgbs - Urology recommends bone scan for staging, not urgent will obtain outpatient. Apprec recs. They have signed off. Pt will need to follow up with them outpatient in 2-3wks. Also recommended prompt f/u with oncology to start chemo. Possible cytoreductive nephrectomy in future. - Will transfer out of ICU to medical today CAD - Continue home statin dose - Hold ASA for potential surgery HTN - Continue IV hydralazine for BP control Anxiety - Continue on Xanax PRN per patient's request - Has failed SSRI's and buspar in past - Atmospheric Chemist consulted Social concerns - Pt states he does not have furniture in his house to return to including a bed. - CM consulted <Anastasiya Shah - Last Filed: 10/31/17 10:56> Attending Addendum - Attending Addendum Date/Time: 10/31/17 1101 I personally evaluated the patient and discussed the management with Dr. Shah. I agree with the History, Examination, Assessment and Plan documented above with any addition or exceptions noted below. Patient doing well this morning on POD1 from decompressive surgery. Tissue diagnosis pending. His pain is controlled, though we will work to get his anxiety under better control. This is to be expected due to his severe situation. PT as tolerated. He has no evidence of hemodynamic compromise from his operative blood loss yesterday and will be transferred out of CCU today. Trend H/H but anticipate no further need for transfusion. <Emilio Grijalva - Last Filed: 10/31/17 11:02>
[2017-10-31 06:03] LABS: #Basophils 0.1 thou/uL (0.0-0.2); #Lymphocytes 1.3 thou/uL (1.20-3.40); #Monocytes 0.7 thou/uL (0.11-0.59); #Neutrophils 11.5 thou/uL (1.40-6.50); %Basophils 0.5 % (0.0-1.0); %Eosinophils 0.1 % (0.0-10.0); %Lymphocytes 9.6 % (21.0-51.0); %Neutrophils 84.9 % (42.0-75.0); Mean Corpuscular HGB CONC 33.5 g/dL (32.0-36.0); Mean Corpuscular Hemoglobin 31.9 pg (27.0-31.0); Mean Corpuscular Volume 95.2 fL (78.0-98.0); Mean Platelet Volume 7.7 fL (7.4-10.4); Platelet Count 217 thou/uL (130-400); RBC Distribution Width 13.1 % (11.5-14.5); Red Blood Cell (RBC) Count 4.07 mill/uL (4.70-6.10); White Blood Cell (WBC) Count 13.5 thou/uL (4.8-10.8)
[2017-10-31] MEDS ORDERED: Bupropion 150 MG SR TAB PO SCH (09:00)
--- NOTE | 2017-10-31 09:00 | PRG ---
DATE OF SERVICE: 10/31/2017 SUBJECTIVE: Mr. Radford is now day #1 status post thoracic 2 decompression and metastatic tumor debulk ing. He is doing well this morning with some expected pain between the shoulder blades. He actually feels like his numbness over his trunk and legs has improved some. He still feels that his right up per extremity and right lower extremity are weaker than his left-sided counterpart which is true to s ome extent. He had more significant weakness in the immediate postoperative period yesterday, but to day has pretty similar equivalency in his right firearms inspector versus left firearms inspector as well as his ability to strai ght leg raise off the bed bilaterally. So I think this is a significant clinical improvement in rega rds to his progress. His drain output 165 overnight and after being empty this morning around 6 has already reaccumulated around 20 mL. We will leave this in for the time being with continued Ancef IV every 8 hours. I will relax his activity restrictions so that he can get up at bedside and work wit h physical therapy. His hemoglobin this morning was 13, which is an uptrend from yesterday which was 11.7 yesterday evening. We transfused 2 units of blood yesterday night. I will plan to recheck thi s again at noon and if they were still at 13 or above, we can transition to the floor. I am mostly c oncerned with his history of cardiac problems as well as decompression on his cord and ability to con tinue to perfuse. His systolic pressures have been maintained above 120.
[2017-10-31] MEDS: ALPRAZolam 1 MG TAB PO PRN ×2 (09:05→21:34)
[2017-10-31] MEDS: Cyclobenzaprine 10 MG TAB PO PRN ×2 (09:41→17:52)
--- NOTE | 2017-10-31 12:14 | PRG ---
DATE OF SERVICE: 10/31/2017 SERVICE: Pulmonary Medicine. INTERVAL HISTORY: The patient is doing great from a respiratory standpoint. He is breathing comfort ably. He continues to have some discomfort whenever he takes a deep breath, but is much improved com pared to prior. This is first time getting up today. He is fairly happy with progress he has made t hus far. He was hoping that pathology will be back, but I have told him that we probably will have a ny answers until Thursday at the earliest. There were no significant overnight events. OBJECTIVE: VITAL SIGNS: Afebrile, pulse 63, blood pressure 137/86, respirations 18, saturation 96% on room air. GENERAL: The patient is awake and alert, in no apparent distress. LUNGS: Excellent air entry. There is no prolonged expiratory phase. HEART: Normal rate, regular. ABDOMEN: Soft, nontender, nondistended. Bowel sounds are positive. MUSCULOSKELETAL: No cyanosis or clubbing. There is no pitting in the bilateral lower extremities. NEUROLOGIC: Grossly nonfocal. LABORATORY DATA: WBC 13.5, hemoglobin 13.0, platelets 217,000. Urinalysis is unremarkable. ASSESSMENT: 1. Metastatic process. 2. Spinal lesion, status post decompression of T2. 3. Coronary artery disease, not flow limiting. 4. Acute blood loss anemia, stable. DISCUSSION AND PLAN: The patient is stable for transition out of the ICU to the surgical unit. He h as no further requirements for inpatient Pulmonary or Critical Care opinion when he leaves the ICU an d at that time, I will sign off. Please call with additional questions or concerns moving forward.
[2017-10-31 12:43] LABS: #Lymphocytes 1.1 thou/uL (1.20-3.40); #Monocytes 0.5 thou/uL (0.11-0.59); #Neutrophils 11.8 thou/uL (1.40-6.50); %Basophils 0.1 % (0.0-1.0); %Eosinophils 0.3 % (0.0-10.0); %Lymphocytes 8.1 % (21.0-51.0); %Monocytes 3.6 % (0.0-10.0); Hemoglobin 13.9 g/dL (14.0-18.0); Mean Corpuscular HGB CONC 33.5 g/dL (32.0-36.0); Mean Corpuscular Hemoglobin 31.7 pg (27.0-31.0); Mean Corpuscular Volume 94.6 fL (78.0-98.0); Platelet Count 249 thou/uL (130-400); RBC Distribution Width 13.2 % (11.5-14.5); Red Blood Cell (RBC) Count 4.39 mill/uL (4.70-6.10); White Blood Cell (WBC) Count 13.5 thou/uL (4.8-10.8)
[2017-10-31] MEDS: Calcium Carbonate 500 MG ChewTAB PO PRN ×2 (16:32→21:34)
[2017-10-31] MEDS: Atorvastatin Calcium 40 MG TAB PO SCH (21:34)
[2017-11-01] MEDS: Morphine 4 MG/ML VIAL SLOW IVP PRN ×5 (00:57→20:37)
[2017-11-01] MEDS: Cyclobenzaprine 10 MG TAB PO PRN ×3 (00:57→16:31)
[2017-11-01] MEDS: Dexamethasone 4 MG TAB PO SCH ×4 (01:01→20:31)
[2017-11-01] MEDS: CEFAZOLIN/Water 2 GM/20 ML SYRINGE SLOW IVP SCH (04:06)
--- NOTE | 2017-11-01 05:50 | PDOC.FM ---
- Subjective Subjective: No overnight events. Pt has no complaints this morning. Reports medication for anxiety is helping, had some unexpected visitors that caused anxiety last night. His pain is well controlled. Denies SOB, nausea, vomiting. Tolerating PO intake. Ambulating in room frequently. Reports improvement in strength and almost complete resolution of numbness. - Objective MAR Reviewed: Yes Vital Signs & Weight: Vital Signs (12 hours) Temp Pulse Resp BP BP Pulse Ox 11/01/17 04:00 98.2 F 54 L 18 133/73 96 11/01/17 00:00 98.2 F 60 18 137/76 95 10/31/17 20:00 95 10/31/17 19:57 98.1 F 60 19 150/81 H 95 Weight Weight 78.1 kg Most Recent Monitor Data Heart Rate from ECG 60 NIBP 154/87 NIBP BP-Mean 109 Respiration from ECG 16 SpO2 96 I&O: 10/30/17 10/31/17 11/01/17 06:59 06:59 06:59 Intake Total 2465 2467 1255 Output Total 2165 470 Balance 2465 302 785 Result Diagrams: 11/01/17 06:11 10/26/17 21:17 <Anastasiya Shah - Last Filed: 11/01/17 06:45> - Objective Vital Signs & Weight: Vital Signs (12 hours) Temp Pulse Resp BP BP BP Pulse Ox 11/01/17 07:05 98 F 57 L 18 148/84 H 97 11/01/17 04:00 98.2 F 54 L 18 133/73 96 11/01/17 00:00 98.2 F 60 18 137/76 95 Weight Weight 78.1 kg Most Recent Monitor Data Heart Rate from ECG 60 NIBP 154/87 NIBP BP-Mean 109 Respiration from ECG 16 SpO2 96 I&O: 10/31/17 11/01/17 11/02/17 06:59 06:59 06:59 Intake Total 2467 1835 Output Total 2165 470 Balance 302 1365 Result Diagrams: 11/01/17 06:11 11/01/17 06:11 <Emilio Grijalva - Last Filed: 11/01/17 10:10> Phys Exam - Physical Examination Constitutional: NAD Respiratory: no wheezing, clear to auscultation bilateral Cardiovascular: RRR, no significant murmur Gastrointestinal: soft, non-tender, positive bowel sounds Musculoskeletal: no edema, pulses present 5/5 wrist digital media planner, 5/5 b/l plantarflexion/dorsiflexion. 4/5 hip flexion left Psychiatric: normal affect, A&O x 3 Skin: cap refill <2 seconds <Anastasiya Shah - Last Filed: 11/01/17 06:45> Dx/Plan (1) Anxiety Code(s): F41.9 - ANXIETY DISORDER, UNSPECIFIED Status: Acute (2) Lytic bone lesions on xray Code(s): M89.9 - DISORDER OF BONE, UNSPECIFIED Status: Acute (3) Metastasis to adrenal gland Code(s): C79.70 - SECONDARY MALIGNANT NEOPLASM OF UNSPECIFIED ADRENAL GLAND Status: Acute Qualifiers: Laterality: right Qualified Code(s): C79.71 - Secondary malignant neoplasm of right adrenal gland (4) Renal cell carcinoma of left kidney Code(s): C64.2 - MALIGNANT NEOPLASM OF LEFT KIDNEY, EXCEPT RENAL PELVIS Status : Suspected (5) Coronary artery disease Code(s): I25.10 - ATHSCL HEART DISEASE OF [place] CORONARY ARTERY W/O ANG PCTRS Status: Chronic (6) HTN (hypertension) Code(s): I10 - ESSENTIAL (PRIMARY) HYPERTENSION Status: Chronic (7) History of myocardial infarction Code(s): I25.2 - OLD MYOCARDIAL INFARCTION Status: Chronic - Plan Plan: 47yo male with pmh of HTN and CAD who presented with unintentional weight loss and gait/balance disturbance, found to have a destructive lesion between T1-T2 on imaging & subsequently suspected RCC with mets to right adrenal gland and spine. Suspected renal malignancy with metastases to bone @ T2 and right adrenal gland POD#2 from partial thoracic decompressive laminectomy - CT chest/abd/pelvis 10/28/17: 2 left primary malignancies of L kidney w/ right adrenal and T2 osseous mets. - Neurosurgery following, appreciate recs - Urology believes CA is likely metastatic RCC stage [id number] and recommended surgical decompression before addressing the affecting kidney. Pt will need to wait a few weeks s/p surgery for proper healing before mostly likely needing to initiate chemotherapy. - Consulted Onc, apprec recs - Decompressive laminectomy notable for copious amts of blood loss s/p 4U leuk- reduced RBCs - Improved numbness and weakness postop. - Urology recommends bone scan for staging, not urgent will obtain outpatient. Apprec recs. They have signed off. Pt will need to follow up with them outpatient in 2-3wks. Also recommended prompt f/u with oncology to start chemo. Possible cytoreductive nephrectomy in future. - Continue tylenol, flexeril, scheduled norco with breakthrough morphine for pain control and IV steroids to help with associated inflammation. - Continue docusate for associated constipation - PT as tolerated - Continue Cefazolin q8hr CAD - Continue home statin dose - Hold ASA for potential surgery HTN - Continue IV hydralazine for BP control Anxiety - Continue on Xanax PRN per patient's request - Has failed SSRI's and buspar in past - Clinical Information Systems Director consulted Social concerns - Pt states he does not have furniture in his house to return to including a bed. - CM consulted DVT ppx: SCDs Code Status: FULL <Anastasiya Shah - Last Filed: 11/01/17 06:45> Attending Addendum - Attending Addendum Date/Time: 11/01/17 1009 I personally evaluated the patient and discussed the management with Dr. Shah. I agree with the History, Examination, Assessment and Plan documented above with any addition or exceptions noted below. Patient improved from pain and anxiety standpoint. Will titrate meds as necessary to result in adequate control. He has been cleared from NSGY for discharge, but we still have some active issues to handle. Will need to continue PT while here. Await further input from Oncology tomorrow after we hopefully arrive at tissue diagnosis. He is currently essentially homeless and we will need active CM support beginning tomorrow to work on placement and follow up for this patient. <Emilio Grijalva - Last Filed: 11/01/17 10:10>
[2017-11-01] MEDS: HYDROcodone/Acetaminophen 10/325 mg Tablet PO SCH ×6 (06:04→23:46)
[2017-11-01 06:26] LABS: #Basophils 0.1 thou/uL (0.0-0.2); #Lymphocytes 1.4 thou/uL (1.20-3.40); #Monocytes 0.8 thou/uL (0.11-0.59); #Neutrophils 12.7 thou/uL (1.40-6.50); %Basophils 0.4 % (0.0-1.0); %Eosinophils 0.2 % (0.0-10.0); %Lymphocytes 9.1 % (21.0-51.0); %Monocytes 5.3 % (0.0-10.0); Hemoglobin 13.9 g/dL (14.0-18.0); Mean Corpuscular HGB CONC 33.5 g/dL (32.0-36.0); Mean Corpuscular Hemoglobin 31.6 pg (27.0-31.0); Mean Corpuscular Volume 94.4 fL (78.0-98.0); Mean Platelet Volume 7.9 fL (7.4-10.4); Platelet Count 237 thou/uL (130-400); RBC Distribution Width 12.9 % (11.5-14.5); Red Blood Cell (RBC) Count 4.41 mill/uL (4.70-6.10)
[2017-11-01 06:46] LABS: Anion Gap 14 mmol/L (10-20); BUN (Urea Nitrogen) 21 mg/dL (8.9-20.6); Calc. Creatinine Clearance 127 mL/min (70-130); Calcium 8.5 mg/dL (7.8-10.44); Carbon Dioxide 23 mmol/L (22-29); Chloride 104 mmol/L (98-107); Estimated GFR-MDRD Greater than 90; Glucose 118 mg/dL (70-105); Potassium 4.3 mmol/L (3.5-5.1); Sodium 137 mmol/L (136-145)
[2017-11-01] MEDS: ALPRAZolam 0.5 MG TAB PO PRN ×3 (07:59→20:31)
--- NOTE | 2017-11-01 09:26 | PRG ---
DATE OF SERVICE: 11/01/2017 SUBJECTIVE: Mr. Radford is day #2 status post thoracic decompression and tumor debulking. His numbnes s has essentially resolved. His gait has improved significantly and he feels like his leg strength b ilaterally along the way. His bilateral upper extremity motor exam is equivalent and I would grade 5 /5 perhaps at times 4+/5 on the right secondary to some pain in the scapula with certain movements. This is likely postoperative inflammation related drainage overnight, was only 40 mL were removed his JAVID drain. This is down from 165 last night. His incision is dry and well approximated. Alstead in tact. drains out and we will plan to see him in postoperative followup for staple removal. We will defer to primary team at this time, but continue to follow along.
--- NOTE | 2017-11-01 10:30 | PRG ---
DATE OF SERVICE: 11/01/2017 Mr. Radford is now 2 days status post thoracic decompression for what is likely to be a metastatic nancy l cell. He has done quite well in the postoperative setting. The sensory level with associated numbness that he was having prior to surgery has completely resolved. He has been ambulating in the halls and fee ls like he is more sure footed. He still feels a little bit unsteady, but I am confident this will i mprove gradually with time. We continue to await final results from pathology. He will most certainly need adjuvant treatment at some point, but this will likely occur after his incision has healed. Urology is also on board and will arrange with him plans for treatment of the renal mass. From a neurosurgical perspective, he can be discharged home at any time. We will arrange outpatient followup in approximately 2 weeks.
[2017-11-01] MEDS: Atorvastatin Calcium 40 MG TAB PO SCH (20:30)
[2017-11-02] MEDS: Cyclobenzaprine 10 MG TAB PO PRN ×3 (01:35→23:54)
[2017-11-02] MEDS: Dexamethasone 4 MG TAB PO SCH ×4 (01:35→20:30)
[2017-11-02] MEDS: ALPRAZolam 0.5 MG TAB PO PRN ×2 (05:44→20:38)
[2017-11-02] MEDS: HYDROcodone/Acetaminophen 10/325 mg Tablet PO SCH ×4 (05:44→23:54)
--- NOTE | 2017-11-02 07:03 | PDOC.FM ---
- Subjective Subjective: NAEO. Patient states pain is currently a 7/10 but he had just finished getting up and walking around. Denies any chest pain, SOB, or N/V,D. States anxiety is very bad right now as fiances ex- came into town while he is stuck here in the hospital. States numbness has resolved since surgery but still has some RLE weakness with ambulation. - Objective MAR Reviewed: Yes Vital Signs & Weight: Vital Signs (12 hours) Temp Pulse Resp BP Pulse Ox 11/02/17 04:36 98.1 F 62 16 127/76 97 11/01/17 23:20 97.9 F 69 16 157/82 H 94 L 11/01/17 20:00 97.5 F L 66 18 149/81 H 95 Weight Weight 78.1 kg Most Recent Monitor Data Heart Rate from ECG 60 NIBP 154/87 NIBP BP-Mean 109 Respiration from ECG 16 SpO2 96 I&O: 10/31/17 11/01/17 11/02/17 06:59 06:59 06:59 Intake Total 2467 1835 1000 Output Total 2165 470 Balance 302 1365 1000 Result Diagrams: 11/01/17 06:11 11/01/17 06:11 Phys Exam - Physical Examination Constitutional: NAD HEENT: sclera anicteric Neck: supple, full ROM Respiratory: no wheezing, no rales, no rhonchi, clear to auscultation bilateral Cardiovascular: RRR, no significant murmur, no rub Gastrointestinal: soft, non-tender, no distention, positive bowel sounds Musculoskeletal: no edema Neurological: non-focal, moves all 4 limbs Psychiatric: normal affect, A&O x 3 Skin: no rash, normal turgor Dx/Plan (1) Renal cell carcinoma of left kidney Code(s): C64.2 - MALIGNANT NEOPLASM OF LEFT KIDNEY, EXCEPT RENAL PELVIS Status : Suspected (2) Lytic bone lesions on xray Code(s): M89.9 - DISORDER OF BONE, UNSPECIFIED Status: Acute (3) Coronary artery disease Code(s): I25.10 - ATHSCL HEART DISEASE OF [place] CORONARY ARTERY W/O ANG PCTRS Status: Chronic (4) HTN (hypertension) Code(s): I10 - ESSENTIAL (PRIMARY) HYPERTENSION Status: Chronic (5) Anxiety Code(s): F41.9 - ANXIETY DISORDER, UNSPECIFIED Status: Acute (6) Metastasis to adrenal gland Code(s): C79.70 - SECONDARY MALIGNANT NEOPLASM OF UNSPECIFIED ADRENAL GLAND Status: Acute Qualifiers: Laterality: right Qualified Code(s): C79.71 - Secondary malignant neoplasm of right adrenal gland - Plan Plan: 47YOM with PMH of HTN and CAD who presented with unintentional weight loss and gait/balance disturbance, found to have a destructive lesion between T1-T2 on imaging & subsequently suspected RCC with mets to right adrenal gland and spine. Suspected renal malignancy with metastases to bone @ T2 and right adrenal gland POD#3 s/p partial thoracic decompressive laminectomy: - CT chest/abd/pelvis 10/28/17: 2 left primary malignancies of L kidney w/ right adrenal and T2 osseous mets. - Neurosurgery signed off. - Urology believes CA is likely metastatic RCC stage [id number]. Recommended surgical decompression before addressing the affecting kidney & stated pt will need to wait a few weeks s/p surgery for proper healing before initiating chemotherapy. Also recommends bone scan for staging as outpatient & f/u w/ them in 2-3 weeks upon discharge. Signed off yesterday. - Oncology signed off and recommended outpatient f/u next week once path is back. Biopsy path pending. - Improved numbness and weakness postop. - Will continue tylenol, flexeril, & scheduled norco. Will try to transition to PO only meds for prep for discharge. Will change to PO steroids to help with associated inflammation. - Will continue docusate for associated constipation - Martin continue PT as tolerated by patient. CAD - Will continue home statin dose. - Will consider restarting home ASA dose as patient is post-op day #3 w/ no plans for surgery in immediate future. HTN - Continue IV hydralazine for BP control Anxiety - Continue on Xanax PRN per patient's request. - Staff Attorney consulted. Social concerns - Pt states he does not have furniture in his house to return to including a bed. - CM consulted. - Will also provide patient with forms for financial assistance program so he can be seen in clinic for free as he and his fiance as uninsured and both have chronic medical conditions. DVT ppx: SCDs Code Status: FULL
[2017-11-02] MEDS: Morphine 4 MG/ML VIAL SLOW IVP PRN ×2 (09:45→20:29)
--- NOTE | 2017-11-02 13:03 | ADD-PRG ---
DATE OF SERVICE: 11/02/2017 This is an addendum to the note of Dr. Francisca Cabrera. Mr. Radford is an unfortunate 47-year-old man who was recently found to have probable metastatic renal cell carcinoma. Oncology and Neurosurgery have already seen the patient and he has in fact had some ear surgery related to cord compression from a metastatic lesion. We are awaiting placement to see i f he qualifies for some type of insurance related to his malignancy.
[2017-11-02] MEDS ORDERED: Senokot 8.6 MG TAB PO PRN (14:00)
[2017-11-02] MEDS ORDERED: Ketorolac Tromethamine 30 MG/ML VIAL IM SCH (14:30)
[2017-11-02] MEDS: Atorvastatin Calcium 40 MG TAB PO SCH (20:29)
[2017-11-02] MEDS: Docusate 100 MG CAP PO SCH (20:30)
[2017-11-03] MEDS: Dexamethasone 4 MG TAB PO SCH ×3 (02:06→13:29)
[2017-11-03] MEDS: Morphine 4 MG/ML VIAL SLOW IVP PRN ×3 (02:09→13:29)
[2017-11-03 05:12] LABS: Anion Gap 13 mmol/L (10-20); BUN (Urea Nitrogen) 27 mg/dL (8.9-20.6); Calc. Creatinine Clearance 122 mL/min (70-130); Calcium 8.3 mg/dL (7.8-10.44); Carbon Dioxide 25 mmol/L (22-29); Chloride 103 mmol/L (98-107); Estimated GFR-MDRD Greater than 90; Glucose 132 mg/dL (70-105); Potassium 4.5 mmol/L (3.5-5.1); Sodium 136 mmol/L (136-145)
[2017-11-03] MEDS: Cyclobenzaprine 10 MG TAB PO PRN (05:55)
[2017-11-03] MEDS: HYDROcodone/Acetaminophen 10/325 mg Tablet PO SCH ×2 (05:55→11:35)
--- NOTE | 2017-11-03 06:17 | PDOC.FM ---
- Subjective Subjective: NAEO. Patient states his pain is currently 8/10 in severity but he had just walked to go get coffee. Walked some with PT yesterday and says his RLE is still weak. Reports recurring numbness in both LEs after exertion or walking that lasts several minutes but eventually resolves. States his abdominal distension has not imrpoved since starting JAHAIRA senokot & colace yesterday. Last BM was 2 days ago. No N/V, CP, or SOB. Says he never heard back from regarding help getting a bed for his home. Has a friend that has offered he and his fiance a place to stay but states he lives 60 miles away. - Objective MAR Reviewed: Yes Vital Signs & Weight: Vital Signs (12 hours) Temp Pulse Resp BP Pulse Ox 11/03/17 00:32 98 F 66 16 143/82 H 96 11/02/17 20:35 98.3 F 63 18 162/84 H 95 Weight Weight 78.1 kg Most Recent Monitor Data Heart Rate from ECG 60 NIBP 154/87 NIBP BP-Mean 109 Respiration from ECG 16 SpO2 96 I&O: 11/01/17 11/02/17 11/03/17 06:59 06:59 06:59 Intake Total 1835 1000 1100 Output Total 470 Balance 1365 1000 1100 Result Diagrams: 11/01/17 06:11 11/03/17 04:30 Phys Exam - Physical Examination Constitutional: NAD HEENT: sclera anicteric Neck: supple, full ROM Respiratory: no wheezing, no rales, no rhonchi, clear to auscultation bilateral Cardiovascular: RRR, no significant murmur Gastrointestinal: non-tender, positive bowel sounds significant distension Musculoskeletal: no edema Neurological: non-focal, moves all 4 limbs Psychiatric: normal affect, A&O x 3 Skin: no rash, normal turgor Dx/Plan (1) Renal cell carcinoma of left kidney Code(s): C64.2 - MALIGNANT NEOPLASM OF LEFT KIDNEY, EXCEPT RENAL PELVIS Status : Suspected (2) Lytic bone lesions on xray Code(s): M89.9 - DISORDER OF BONE, UNSPECIFIED Status: Acute (3) Coronary artery disease Code(s): I25.10 - ATHSCL HEART DISEASE OF [place] CORONARY ARTERY W/O ANG PCTRS Status: Chronic (4) HTN (hypertension) Code(s): I10 - ESSENTIAL (PRIMARY) HYPERTENSION Status: Chronic (5) Anxiety Code(s): F41.9 - ANXIETY DISORDER, UNSPECIFIED Status: Acute (6) Metastasis to adrenal gland Code(s): C79.70 - SECONDARY MALIGNANT NEOPLASM OF UNSPECIFIED ADRENAL GLAND Status: Acute Qualifiers: Laterality: right Qualified Code(s): C79.71 - Secondary malignant neoplasm of right adrenal gland - Plan Plan: 47YOM with PMH of HTN and CAD who presented with unintentional weight loss and gait/balance disturbance, found to have a destructive lesion between T1-T2 on imaging & subsequently 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 Suspected renal malignancy with metastases to bone @ T2 and right adrenal gland POD#4 s/p partial thoracic decompressive laminectomy: - CT chest/abd/pelvis 9/12/18: 2 left primary malignancies of L kidney w/ right adrenal and T2 osseous mets. - Neurosurgery signed off. Recommended f/u within 2 weeks following discharge. - Urology recommends bone scan for staging as outpatient & f/u w/ them in 2-3 weeks upon discharge. Signed off. - Oncology signed off and recommended outpatient f/u next week once path is back. Biopsy path pending. - Per path yesterday will have more definitive diagnosis today after some stains have come back but preliminary Dx is possible clear cell renal carcinoma. - Will continue tylenol, flexeril, & scheduled norco. Will consider transitioning to PO only meds for prep for discharge later today. Will continue PO steroids to help with associated inflammation. - Will continue JAHAIRA senokot & colace for associated constipation as patient reported significant abdominal distension yesterday. Will d/c with bowel regimen as well. - Will continue PT as tolerated by patient. - Will plan to see patient in clinic following discharge to help coordinate follow-up appointments with specialists & treat chronic medical conditions. CAD - Will continue home statin dose. - Will consider restarting home ASA dose as patient is post-op day #4 w/ no plans for surgery in immediate future. HTN - Continue IV hydralazine for BP control Anxiety - Continue on Xanax PRN per patient's request. - Bingo Floater consulted. Constipation - Patient states last BM was 2 days ago and is significantly distended on exam. - Started on JAHAIRA senokot & colace yesterday. - Will give one dose of miralax today and continue w/ JAHAIRA regimen above to hopefully induce a BM before discharge. - Will d/c on home bowel regimen as patient will be taking narcotics at home. Social concerns - Pt states he does not have furniture in his house to return to including a bed. - CM consulted & provided patient with our clinic info. - Financial assistance program forms provided to patient and his fiance yesterday so they can be seen in clinic for free to ensure he is not lost to follow-up. DVT ppx: SCDs Code Status: FULL Dispo: Likely d/c later today on PO meds for pain control and anxiety.
[2017-11-03] MEDS: Docusate 100 MG CAP PO SCH (08:30)
[2017-11-03] MEDS: ALPRAZolam 0.5 MG TAB PO PRN (08:31)
[2017-11-03] MEDS: Nicotine 14 MG PATCH TOP PRN (08:43)
[2017-11-03] MEDS ORDERED: Polyethylene Glycol 3350 17 GM Packet PO SCH (09:00)
[2017-11-03 11:59] VITALS: BP 143/86; TEMP 97.6
--- NOTE | 2017-11-03 16:30 | PRG ---
DATE OF SERVICE: 11/03/2017 This is an addendum to the note of Dr. Francisca Cabrera. SUBJECTIVE: Mr. Radford is sitting quietly in his chair, in no distress. He is ready for discharge. We are arranging with the case management coordinator his outpatient housing, etc. We will also be sending him on p ain medication given that he has metastatic malignancy. He is to contact Oncology next week to begin his therapy.
--- NOTE | 2017-11-04 02:02 | DIS-2 ---
DATE OF ADMISSION: 10/26/2017 DATE OF DISCHARGE: 11/03/2017 RESIDENT: Dr. Francisca Cabrera. ADMITTING ATTENDING: Dr. Emilio Grijalva. DISCHARGE ATTENDING: Dr. Parveen Nunez. CONSULTATIONS 1. Dr. Joseph Shepherd, Neurosurgery. 2. Dr. Jacob Padilla, Pulmonology. 3. Dr. John Medina, Urology. 4. Dr. Sarah Kinney, Oncology. PROCEDURES: 1. Cervical spine CT showing no evidence of acute osseous abnormality. 2. Lumbar spine CT significant for a right adrenal mass with recommended CT of the abdomen for further characterization. 3. Thoracic spine CT significant for destructive mass at the T1-T2 level along the posterior elements, which appears to cause stenosis of the central canal. Recommended MRI of the cervical and thoracic spine with and without contrast for further characterization. 4. Cervical spine MRI, unremarkable pre and postcontrast cervical spine MRI with abnormal findings in the upper thoracic spine. 5. Thoracic spine MRI significant for osseous metastases involving the posterior element of T2 spinous process with bony expansion into the posterior central spinal canal. There is resultant severe central canal stenosis. There is nonspecific edema involving the left and right facet at T2 suggesting extension of metastases. 6. Chest, abdomen, and pelvis CT significant for T2 osseous metastases. Two separate primary malignancies of left kidney and large right adrenal gland compatible with metastases. 7. Thoracic decompression with partial excision of lesion on 10/30/2017. 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 SECONDARY DIAGNOSES: 1. Hypertension. 2. Coronary artery disease with history of myocardial infarction. 3. Anxiety. DISCHARGE MEDICATIONS: 1. Acetaminophen 650 mg p.o. q.4 hours p.r.n. 2. Aspirin 81 mg p.o. daily. 3. Xanax 0.5 mg p.o. t.i.d. p.r.n. 4. Tums 1000 mg p.o. q.4 hours p.r.n. 5. Cyclobenzaprine 10 mg p.o. t.i.d. p.r.n. 6. Benadryl 25 mg p.o. q.4 hours p.r.n. 7. Colace 100 mg p.o. b.i.d. 8. [place] 10 mg/325 mg 2 tabs p.o. every 6 hours p.r.n. for pain. 9. Pantoprazole 40 mg p.o. daily. 10. MiraLax 17 grams pack p.o. daily for 7 days. 11. Senokot 8.6 mg tab p.o. daily. 12. Lipitor 80 mg p.o. at bedtime. 13. Nitroglycerin 0.4 mg sublingual every 5 minutes p.r.n. for chest pain. DISCONTINUED MEDICATION: Toradol 10 mg p.o. q.4 hours p.r.n. HOSPITAL COURSE: Patient is a 47-year-old male with a past medical history significant for coronary artery disease and hypertension who presented to the ED with a chief complaint of a 6-month history of upper back pain with associated 15-pound unintentional weight loss as well as numbness around his abdomen into his buttocks, groin, and legs and pin and needle sensation in his toes. While in the ED, the patient was seen and evaluated by Dr. Shanti Roper and routine labs are drawn. CT of the cervical, thoracic, and lumbar spines were obtained initially, which revealed a destructive bony lesion at the level of T1-T2. The spine CTs were followed up with MRIs of the cervical and thoracic spines per recommendation of Radiology for further characterization of the lesion. MRIs were significant for what was described as an osseous metastasis involving the posterior element at T2 with resulting severe central canal stenosis. The patient received IV Toradol and Solu-Medrol in the ED and was then admitted to the floor for medical stabilization and continued on IV methylprednisolone 125 mg daily as well as p.o. Tylenol and [place] for pain control. Per the ED report, Neurosurgery was consulted in the emergency department; however, this was followed up by the primary care team the following morning and Dr. Joseph Shepherd was made aware of the patient's need for urgent evaluation and intervention. Later that day Dr. Shepherd's physician assignment desk assistant, Eduardo Lopez, came and evaluated the patient. Eduardo Lopez and Dr. Shepherd recommended following up the spinal imaging with CTs of the chest, abdomen, and pelvis to look for a possible primary mass. These tests were done later that day and were significant for a metastasis to the right adrenal gland and 2 suspected primary lesions in the left kidney. The next morning, per the patient, Dr. Shepherd planned for surgical decompression with biopsy the morning of 10/30/2017, so the patient was transitioned to p.o. steroids, with dexamethasone 4 mg p.o. QID and kept on [place] for pain control. That same day Urology, Dr. John Medina was consulted given the fact that the malignancy was suspected to be renal in origin per the readings of the CT scan by Radiology. Later that afternoon, Dr. Medina came and evaluated the patient and stated he agreed with prompt decompression of the cord to avoid permanent paralysis or neurologic complications. Dr. Medina also recommended immediate referral to Medical Oncology for follow-up. Lastly, Dr. Medina also ordered Xanax 0.5 mg p.o. t.i.d. as needed for anxiety per the patient's request. On the morning of 10/30/2017, the patient was taken back for surgical decompression of the osseous metastasis to the level of T2 with biopsy. Of note , Dr. Shepherd noted that the entire case was impacted by an extremely copious amount of bleeding which more than doubled the normal operative time. He was able to remove a large portion of the lesion in order to adequately reduce the compression on the cord; however, due to the excessive bleeding, he did not complete an entire excision of the lesion. Postoperatively, the patient was moved to the CCU for closer monitoring overnight and Dr. Jacob Padilla was consulted for Pulmonology management as needed. Of note, the patient did receive 4 units of leukocyte reduced packed red blood cells postop due to the his copious amount of bleeding in the OR. His hemoglobin was measured at 11.7 following surgery and was trended over the next 2 days of his hospitalization and stabilized at 13.9, which was greater than his hemoglobin on admission at 13.2. On that same day, Oncology, Dr. Sarah Kinney was consulted per the recommendation of Urology and Ms. Rosamaria Garcia, Dr. Kinney's BUILDING ENERGY RETROFIT TECHNICIAN came and evaluated the patient. She recommended a consultation by Radiation Oncology sometime next week and did not provide any immediate plans for management. Stated they would await the pathology results before providing any further recommendations. The patient was monitored closely in the hospital with both IV and PO pain control until postop day #4. By that time, all specialists had signed off and recommended outpatient followup and the patient's pain was decently controlled on p.o. pain medications. He was, therefore, cleared to be discharged home in stable condition as some of his initial numbness and weakness had improved following his decompression. He was sent home on p.o. pain and anxiety medications & instructed to follow-up closely with [facility] for coordinating his care regarding follow-ups and pain and anxiety management as an outpatient. DISPOSITION: Stable. DISCHARGE INSTRUCTIONS: 1. Location: Home. 2. Diet: Heart-healthy diet. 3. Activity. The patient was instructed not to drive until he can be evaluated by Neurosurgery as an outpatient 2 weeks following the date of discharge. He was also instructed to avoid sudden abrupt movement of his neck and spine as explained by the nurse upon discharge, otherwise regular activity as tolerated. 4. Followup: The patient was instructed to follow up with [facility] within 1 week of discharge. In addition, he was instructed to follow up with Dr. Joseph Shepherd with Neurosurgery within 14 days of discharge; Dr. Sarah Kinney , Oncology within 7 days of discharge; and Dr. John Medina with Urology within 2-3 weeks following discharge. LEONARDO
[2017-11-04] MEDS ORDERED: Senokot 8.6 MG TAB PO SCH (09:00)
== END 2017-11-03 14:01 | disposition home or self-care (01) | DRG 478 ==
LOC: ERS 18:33 → SURG A 23:54 → OBSVTOIN 23:54 → CCU 10-30 10:30 → SURG B 10-31 12:58
PROVIDERS: ADMIT Internal Medicine; ATTEND Internal Medicine
PROC: 30233N1 Transfusion of Nonautologous Red Blood Cells into Peripheral Vein, Percutaneous Approach (ICD-10-PCS; 2017-10-26)
PROC: 0PB40ZX Excision of Thoracic Vertebra, Open Approach, Diagnostic (ICD-10-PCS; principal; 2017-10-30)
DX: C79.51 Secondary malignant neoplasm of bone (principal); C64.2 Malignant neoplasm of left kidney, except renal pelvis; C79.71 Secondary malignant neoplasm of right adrenal gland; D62 Acute posthemorrhagic anemia; G95.20 Unspecified cord compression; I25.10 Atherosclerotic heart disease of native coronary artery without angina pectoris; I10 Essential (primary) hypertension; F41.9 Anxiety disorder, unspecified; R26.9 Unspecified abnormalities of gait and mobility; R63.4 Abnormal weight loss; K59.00 Constipation, unspecified; I25.2 Old myocardial infarction; Z68.23 Body mass index [BMI] 23.0-23.9, adult; F17.210 Nicotine dependence, cigarettes, uncomplicated; M48.8X4 Other specified spondylopathies, thoracic region; M48.04 Spinal stenosis, thoracic region
CPT/HCPCS: 36415; 36430; 71260; 72125; 72128; 72131; 72156; 72157; 74177; 76001; 80048; 80053; 81003; 85025; 85652; 86140; 86850; 86900; 86901; 88307; 88311; 88341; 88342; 93005; 96374; 96375; A4216; G8978-GP-CK; G8978-GP-CL; G8979-GP-CI; G8979-GP-CK; G8980-GP-CK; G8987-GO-CJ; G8988-GO-CI; J0670; J0690; J1100; J1170; J1885; J2001; J2250; J2270; J2704; J2930; J3010; J3490; J8540; P9016; P9045

== ENCOUNTER 2017-11-18 08:54 | Outpatient (CLI) | payer OTHER ==
--- NOTE | 2017-11-18 11:21 | MRI ---
PRE AND POST CONTRAST ENHANCED MRI BRAIN: History: Metastatic renal cancer, right sided weakness. Technique: Multiplanar, multisequence pre and post contrast enhanced MRI images were obtained of the brain. FINDINGS: Images demonstrate right maxillary sinus mucous retention cyst. Multiplanar and multisequence MRI images demonstrate no evidence of acute intracranial masses, hemorr hages, strokes or contusions. The ventricles are of normal size. No abnormal areas of intracranial en hancement seen. IMPRESSION: Unremarkable pre and post contrast enhanced MRI images of the brain. POS: KIM
[2017-11-18] MEDS ORDERED: Gadobenate Dimeglumine 529 MG/1 ML (20ML VIAL) ONE (12:55)
--- NOTE | 2017-11-18 15:31 | NM ---
WHOLE BODY BONE SCAN: 11/18/17 HISTORY: Renal cancer. RADIOPHARMACEUTICAL: 33 millicuries technetium 99m-MDP injected intravenously. FINDINGS: Correlation is made with the CT chest, abdomen and pelvis dated 10/28/17. There is mild increase in uptake in the region of T2 corresponding to the metastatic focus noted on t he CT scan. Increased uptake is also seen in the left humeral head corresponding to the lytic lesion on the CT scan. Mild increased uptake in the right shoulder, knees, ankles and feet are consistent wi th degenerative changes. Tracer excretion of the kidneys is within normal limits. Uptake in the jacques ible and maxilla are consistent with periodontal disease. IMPRESSION: Osseous metastatic disease involving T2 vertebra and left humeral head. POS: KIM
== END 2017-11-18 08:55 | disposition home or self-care (01) ==
LOC: MRI 08:54
PROVIDERS: ATTEND Internal Medicine Hematology & Oncology
DX: C64.9 Malignant neoplasm of unspecified kidney, except renal pelvis (principal); R53.1 Weakness; C79.51 Secondary malignant neoplasm of bone
CPT/HCPCS: 70553; 78306; A9503; A9579

== ENCOUNTER 2017-12-08 08:32 | Day surgery (SDC) | payer OTHER ==
[2017-12-08] MEDS ORDERED: Zoledronic Acid 4 MG in Sodium Chloride 0.9% 100 ML IVPB SCH (08:45)
[2017-12-08] MEDS ORDERED: Sodium Chloride 0.9% 20 ML ONE (09:00)
[2017-12-08] MEDS ORDERED: Nivolumab 240 MG in Sodium Chloride 0.9% 250 ML 250 ML IVPB SCH (10:45)
[2017-12-08] MEDS ORDERED: [UNRECOGNIZED DRUG - REMARK] IV SCH (11:00)
[2017-12-08 12:33] VITALS: BP 118/68; TEMP 98.2
== END 2017-12-08 15:06 | disposition home or self-care (01) ==
LOC: ONC/OP 08:32
PROVIDERS: ATTEND Internal Medicine Hematology & Oncology
DX: Z51.11 Encounter for antineoplastic chemotherapy (principal); C64.2 Malignant neoplasm of left kidney, except renal pelvis; C79.51 Secondary malignant neoplasm of bone; F17.200 Nicotine dependence, unspecified, uncomplicated; Z79.899 Other long term (current) drug therapy; Z88.8 Allergy status to other drugs, medicaments and biological substances
CPT/HCPCS: 96367; 96413; 96417; 99212; G0463; J3489; J7050; J9299

== ENCOUNTER 2017-12-09 20:09 | Inpatient (IN) | payer OTHER, SELFPAY ==
[2017-12-09 21:00] LABS: #Lymphocytes 0.3 thou/uL (1.20-3.40); #Monocytes 0.3 thou/uL (0.11-0.59); #Neutrophils 5.3 thou/uL (1.40-6.50); %Basophils 0.2 % (0.0-1.0); %Eosinophils 0.5 % (0.0-10.0); %Lymphocytes 4.6 % (21.0-51.0); %Monocytes 5.8 % (0.0-10.0); Hemoglobin 13.2 g/dL (14.0-18.0); Mean Corpuscular HGB CONC 33.3 g/dL (32.0-36.0); Mean Corpuscular Hemoglobin 31.4 pg (27.0-31.0); Mean Corpuscular Volume 94.5 fL (78.0-98.0); Mean Platelet Volume 6.8 fL (7.4-10.4); Platelet Count 132 thou/uL (130-400); RBC Distribution Width 13.6 % (11.5-14.5); Red Blood Cell (RBC) Count 4.21 mill/uL (4.70-6.10); White Blood Cell (WBC) Count 5.9 thou/uL (4.8-10.8)
[2017-12-09 21:09] LABS: ALT (SGPT) 28 U/L (8-55); AST (SGOT) 11 U/L (5-34); Albumin 3.9 g/dL (3.5-5.0); Alkaline Phosphatase 60 U/L (40-150); Anion Gap 12 mmol/L (10-20); BUN (Urea Nitrogen) 17 mg/dL (8.9-20.6); Bilirubin, Total 0.8 mg/dL (0.2-1.2); Calc. Creatinine Clearance 0 mL/min (70-130); Calcium 8.1 mg/dL (7.8-10.44); Carbon Dioxide 22 mmol/L (22-29); Chloride 101 mmol/L (98-107); Estimated GFR-MDRD Greater than 90; Globulin 2.6 g/dL (2.4-3.5); Glucose 126 mg/dL (70-105); Protein, Total 6.5 g/dL (6.0-8.3); Sodium 131 mmol/L (136-145)
[2017-12-09] MEDS ORDERED: Cefepime 2 GM VIAL ONE (21:18)
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
--- NOTE | 2017-12-09 21:56 | RAD ---
PORTABLE AP CHEST X-RAY 12/09/17 HISTORY: Sepsis. Fever. Kidney cancer. Immune therapy treatment one day ago. COMPARISON: 10/04/17. FINDINGS: The cardiac silhouette and pulmonary vasculature are within normal limits. The lungs are clear. The o sseous structures are intact. IMPRESSION: Stable chest without evidence of an cute cardiopulmonary process. POS: [facility]
[2017-12-09 23:07] LABS: Bilirubin Negative (Negative); Blood, Urine Small (Negative); Clarity CLEAR (Clear); Glucose, Urine (Dipstick) Negative (Negative); Leukocyte Negative (Negative); Nitrite Negative (Negative); Protein, Urine (Dipstick) Negative (Neg-Trace); Specific Gravity, Urine 1.009 (1.002-1.036)
[2017-12-09 23:09] LABS: Bacteria/HPF None Seen HPF (None Seen); Hyaline Casts/LPF 0-3 HYALINE CAST LPF (0-3 Hyaline); Squamous Epithelial None Seen HPF (0-3); WBC/HPF 0-3 HPF (0-3)
[2017-12-09] MEDS ORDERED: Ondansetron ODT 4 MG TAB SL PRN (23:27)
[2017-12-09] MEDS ORDERED: Ondansetron PF 4 MG/2 ML Vial IVP PRN (23:27)
[2017-12-09] MEDS ORDERED: Acetaminophen 325 MG TAB PO PRN (23:34)
[2017-12-09] MEDS ORDERED: HYDROcodone/Acetaminophen 10/325 mg Tablet PO PRN (23:34)
[2017-12-10 00:38] VITALS: BMI 26.0
[2017-12-10] MEDS ORDERED: Cyclobenzaprine 10 MG TAB PO PRN (01:01)
[2017-12-10] MEDS: Sodium Chloride 0.9% 1,000 ML IV SCH ×2 (01:02→07:29)
[2017-12-10] MEDS: Lactated Ringer's 1,000 ML IV SCH ×4 (01:21→20:29)
--- NOTE | 2017-12-10 02:34 | PDOC.EVN ---
Event Note - Event Note Event Note: Date/Time: 12/10/17 0230 I personally evaluated the patient and discussed the management with Dr. Hughes and Aubrey.The H&P is pending. I will review when ready. I agree with the History, Examination, Assessment and Plan as discussed. Patient notes constant burning pain in left upper back medial to left shoulder blade. Opioids not very effective, but he is reducing his opioid meds due to side effects. He is willing to try gabapentin. He also is nauseated. Will bismark tenorio.
[2017-12-10] MEDS: Vancomycin HCl 1.25 GM in Sodium Chloride 0.9% 250 ML 250 ML IVPB SCH ×3 (05:14→21:55)
[2017-12-10] MEDS: HYDROcodone/Acetaminophen 10/325 mg Tablet PO SCH ×3 (05:25→18:23)
[2017-12-10 05:45] LABS: Anion Gap 8 mmol/L (10-20); BUN (Urea Nitrogen) 13 mg/dL (8.9-20.6); Calc. Creatinine Clearance 132 mL/min (70-130); Calcium 7.1 mg/dL (7.8-10.44); Carbon Dioxide 25 mmol/L (22-29); Chloride 107 mmol/L (98-107); Estimated GFR-MDRD Greater than 90; Glucose 103 mg/dL (70-105); Potassium 4.2 mmol/L (3.5-5.1); Sodium 136 mmol/L (136-145)
[2017-12-10] MEDS ORDERED: VANCOMYCIN HCL IVPB SCH (06:00)
[2017-12-10] MEDS ORDERED: SODIUM CHLORIDE 0.9% IVPB SCH (06:00)
[2017-12-10 06:06] LABS: #Lymphocytes 0.3 thou/uL (1.20-3.40); #Monocytes 0.4 thou/uL (0.11-0.59); #Neutrophils 3.3 thou/uL (1.40-6.50); %Basophils 0.2 % (0.0-1.0); %Eosinophils 0.7 % (0.0-10.0); %Lymphocytes 7.4 % (21.0-51.0); %Monocytes 10.6 % (0.0-10.0); %Neutrophils 81.1 % (42.0-75.0); Hemoglobin 11.4 g/dL (14.0-18.0); Mean Corpuscular HGB CONC 33.2 g/dL (32.0-36.0); Mean Corpuscular Hemoglobin 31.7 pg (27.0-31.0); Mean Corpuscular Volume 95.3 fL (78.0-98.0); Mean Platelet Volume 6.7 fL (7.4-10.4); PLT Morphology Comment Appears Decreased; Platelet Count 100 thou/uL (130-400); RBC Distribution Width 13.6 % (11.5-14.5); RBC Morphology Normal; Red Blood Cell (RBC) Count 3.59 mill/uL (4.70-6.10); White Blood Cell (WBC) Count 4.1 thou/uL (4.8-10.8)
--- NOTE | 2017-12-10 06:43 | PDOC.FM ---
- Subjective Subjective: Endorses severe pain in left arm with any movement but says it's tolerable with him sitting still. Also endorses some nausea but says zofran is helping. Says rash is not pruritic now but tender to the touch in some places. Endorses night sweats but denies any fever or chills. - Objective MAR Reviewed: Yes Vital Signs & Weight: Vital Signs (12 hours) Temp Pulse Resp BP Pulse Ox 12/10/17 04:00 99.7 F H 91 18 128/79 95 12/09/17 23:10 98.6 F 80 18 108/67 96 Weight Weight 84.82 kg Result Diagrams: 12/10/17 04:26 12/10/17 04:26 Phys Exam - Physical Examination Constitutional: NAD HEENT: moist MMs, sclera anicteric Neck: supple, full ROM Respiratory: no wheezing, no rales, no rhonchi, clear to auscultation bilateral Cardiovascular: RRR, no significant murmur Gastrointestinal: non-tender, positive bowel sounds + distention Musculoskeletal: no edema Neurological: non-focal, moves all 4 limbs + numbness/ decreased sensation from waist down. Psychiatric: normal affect, A&O x 3 Skin: normal turgor, cap refill <2 seconds Deviation from normal: pupular, erythematous, nonpruritic rash over left shouulder Dx/Plan (1) Sepsis affecting skin Code(s): A41.9 - SEPSIS, UNSPECIFIED ORGANISM Status: Acute (2) Anxiety Code(s): F41.9 - ANXIETY DISORDER, UNSPECIFIED Status: Acute (3) Metastasis to adrenal gland Code(s): C79.70 - SECONDARY MALIGNANT NEOPLASM OF UNSPECIFIED ADRENAL GLAND Status: Acute Qualifiers: Laterality: right Qualified Code(s): C79.71 - Secondary malignant neoplasm of right adrenal gland (4) HTN (hypertension) Code(s): I10 - ESSENTIAL (PRIMARY) HYPERTENSION Status: Chronic (5) Renal cell carcinoma of left kidney Code(s): C64.2 - MALIGNANT NEOPLASM OF LEFT KIDNEY, EXCEPT RENAL PELVIS Status : Suspected - Plan Plan: Sepsis 2/2 surgical site incision infection - Will continue IV vanc and order trough. Will adjust abx PRN pending culture results. - Blood, wound, & urine cxs pending. - Wound care consulted. - Stable at this time w/ no white count, but on immunosuppressive therapy. - Will d/c IVFs & JAHAIRA zofran so patient is able to tolerate PO. - Will consult Dr. Shepherd with neurosurgery since patient was supposed to see him for follow-up anyway. May need surgical debridement of wound. Folliculitis of left chest, back and neck - Could be 2/2 to radiation as well as RCC as patient has had this occur before starting any CA treatments. - Will resume home PO steroids since this has been effective in the past. Pain 2/2 metastatic bone pain - Will continue home pain medications: MS Contin and [place] 10/325. - Added gabapentin and will continue home flexeril as well. 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 Isidro, consulted from ED. Appreciate recs. - Left kidney primary site with mets to T2 (s/p surgical decompression with partial lesion resection), right adrenal gland, & left humerus. - Started immunotherapy w/ Opdivo yesterday. - Will consult palliative care to get recs for coping strategies and to discuss comfort options and goals of care. h/o CAD - Will consider adding statin & ASA while in hospital. Anxiety - Will continue home diazepam. HTN - Will continue home prazosin and consider adding another agent if BP poorly controlled during hospitalization. tobacco use - Hasn't smoked in 5 days 2/2 nausea. Doesn't want a nicotine patch right now. Will continue to monitor and encourage smoking cessation. dvt ppx: lovenox Abx: vancomycin IVFs: none
[2017-12-10] MEDS ORDERED: Dexamethasone 1 MG TAB PO SCH (08:00)
[2017-12-10] MEDS: Enoxaparin Sodium 40 MG/0.4 ML SYRINGE SC SCH (08:45)
[2017-12-10] MEDS: Gabapentin 300 MG CAP PO SCH ×3 (08:46→20:21)
[2017-12-10] MEDS: Morphine ER 30 MG TAB PO SCH ×2 (08:47→20:21)
[2017-12-10] MEDS: Scopolamine 1.5 mg/72 hour Patch TD SCH (08:47)
[2017-12-10] MEDS ORDERED: Vancomycin HCl 1 GM in Premix Bag 1 BAG IVPB SCH (09:00)
[2017-12-10] MEDS: Proctozone-HC 2.5% Cream 30 GM TUBE TOP SCH ×2 (10:09→20:31)
[2017-12-10] MEDS ORDERED: Ondansetron ODT 4 MG TAB PO PRN (10:42)
--- NOTE | 2017-12-10 11:56 | PDOC.EVN ---
Attending Addendum - Attending Addendum Date/Time: 12/10/17 [id number] I personally evaluated the patient and discussed the management with Dr. Cabrera. I agree with the History, Examination, Assessment and Plan documented in her progress note with any addition or exceptions noted below. Patient here for back infection that may be associated with previous surgical site. Will continue fluids, IV abx, and wound care. Awaiting culture results. Will consult his NSGY team to see if he needs wound exploration or drainage. Continue to modify pain control as needed as this infection is flaring his pain in the setting of metastatic renal cancer. Afebrile and labs stable today.
[2017-12-10] MEDS: Ondansetron ODT 4 MG TAB PO SCH ×3 (11:57→20:26)
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
[2017-12-10] MEDS: Ondansetron PF 4 MG/2 ML Vial IVP PRN (12:41)
[2017-12-10] MEDS ORDERED: fentaNYL 75 mcg/hour Patch TD SCH (14:30)
[2017-12-10] MEDS ORDERED: Morphine 4 MG/ML VIAL SLOW IVP SCH (14:30)
[2017-12-10] MEDS: Prazosin HCl 1 MG CAP PO SCH (20:23)
[2017-12-11] MEDS: HYDROcodone/Acetaminophen 10/325 mg Tablet PO SCH ×2 (00:34→05:34)
[2017-12-11] MEDS: Ondansetron ODT 4 MG TAB PO SCH (05:21)
[2017-12-11] MEDS: Vancomycin HCl 1.25 GM in Sodium Chloride 0.9% 250 ML 250 ML IVPB SCH ×2 (05:21→14:21)
[2017-12-11] MEDS: Lactated Ringer's 1,000 ML IV SCH ×3 (05:24→22:46)
[2017-12-11 06:29] LABS: Band 26 % (5-11); Eosinophils 2 % (0-10); Hemoglobin 11.4 g/dL (14.0-18.0); Lymphocytes 10 % (21-51); MDiff Complete? YES; Mean Corpuscular HGB CONC 33.1 g/dL (32.0-36.0); Mean Corpuscular Hemoglobin 31.7 pg (27.0-31.0); Mean Corpuscular Volume 95.6 fL (78.0-98.0); Mean Platelet Volume 6.9 fL (7.4-10.4); Monocytes 14 % (0-10); Neutrophil 47 % (42-75); PLT Morphology Comment Appears Decreased; Platelet Count 92 thou/uL (130-400); RBC Distribution Width 13.5 % (11.5-14.5); Reactive Lymphocytes 1 % (0-10); White Blood Cell (WBC) Count 4.2 thou/uL (4.8-10.8)
--- NOTE | 2017-12-11 06:40 | PDOC.FM ---
- Subjective Subjective: Patient appeared to be in mild distress 2/2 being nauseated and in pain. Stated he has not vomited since last night but refused his morning PO pain meds and was able to keep down 2 popsicles for breakfast. Says just thinking of taking oral pain meds makes him feel nauseous. Says his pain is currently a 6-7/10. Has been able to get up and walk to the bathroom but has not had a BM since admission. Says last BM was a few hours before coming to the hospital and says the stool was hard and pellet-like in consistency. - Objective MAR Reviewed: Yes Vital Signs & Weight: Vital Signs (12 hours) Temp Pulse Resp BP Pulse Ox 12/11/17 04:50 97.9 F 82 16 106/70 93 L 12/10/17 23:29 98.7 F 87 16 117/76 94 L 12/10/17 19:18 99.4 F 85 22 H 129/81 95 Weight Weight 84.82 kg Result Diagrams: 12/11/17 04:55 12/10/17 04:26 <Francisca Cabrera - Last Filed: 12/11/17 10:27> - Objective Vital Signs & Weight: Vital Signs (12 hours) Temp Pulse Resp BP Pulse Ox 12/11/17 07:28 98.6 F 86 18 111/69 95 12/11/17 04:50 97.9 F 82 16 106/70 93 L 12/10/17 23:29 98.7 F 87 16 117/76 94 L Weight Admit Weight 84.82 kg Weight 84.82 kg I&O: 12/10/17 12/11/17 12/12/17 06:59 06:59 06:59 Intake Total 1999 Result Diagrams: 12/11/17 04:55 12/10/17 04:26 <Emilio Grijalva - Last Filed: 12/11/17 11:10> Phys Exam - Physical Examination Constitutional: NAD HEENT: moist MMs Neck: supple, full ROM Respiratory: no wheezing, no rales, no rhonchi, clear to auscultation bilateral Cardiovascular: RRR, no significant murmur slightly distended and tense abdomen w/ no TTP, hypoactive bowel sounds Musculoskeletal: no edema small ~1.5 in diameter circular lesion w/ purulent discharge noted over T4 decompression surgical site; no surrounding warmth or erythema Neurological: non-focal, moves all 4 limbs decreased sensation from waist down Psychiatric: normal affect, A&O x 3 Deviation from normal: erythematous pustular papular rash over left shoulder and all across back -: appears slightly better compared to yesterday <Francisca Cabrera - Last Filed: 12/11/17 10:27> Dx/Plan (1) Sepsis affecting skin Code(s): A41.9 - SEPSIS, UNSPECIFIED ORGANISM Status: Acute (2) Anxiety Code(s): F41.9 - ANXIETY DISORDER, UNSPECIFIED Status: Acute (3) Metastasis to adrenal gland Code(s): C79.70 - SECONDARY MALIGNANT NEOPLASM OF UNSPECIFIED ADRENAL GLAND Status: Acute Qualifiers: Laterality: right Qualified Code(s): C79.71 - Secondary malignant neoplasm of right adrenal gland (4) HTN (hypertension) Code(s): I10 - ESSENTIAL (PRIMARY) HYPERTENSION Status: Chronic (5) Renal cell carcinoma of left kidney Code(s): C64.2 - MALIGNANT NEOPLASM OF LEFT KIDNEY, EXCEPT RENAL PELVIS Status : Suspected - Plan Plan: Sepsis 2/2 surgical site incision infection - Blood & urine cxs pending. Wound Cx + for staph aureus. Susceptibilities pending. - Will continue IV vanc. Trough this AM low NL level at 10. Will adjust abx PRN pending culture results. - Wound care consulted. - Stable at this time w/ no white count, but on immunosuppressive therapy. - Will consider d/c IVFs if patient feels less nauseous today. - Patient was seen by surgeon, Dr. Shepherd, yesterday who recommended continuing IV abx a little longer before taking back for I&O. Folliculitis of left chest, back and neck - Could be 2/2 to radiation as well as RCC as patient has had this occur before starting any CA treatments. - Will continue topical steroids since PO steroids are CI while on chemotherapy. Pain 2/2 metastatic bone pain - Palliative care on board, appreciate recs. - Will consider holding PO pain meds until nausea resolves and switch to all IV. Will continue fentanyl patch at 25mcg Q3days per recs of palliative care. - Will continue JAHAIRA gabapentin and PRN flexeril as tolerated by patient. Intractable N/V - Will continue JAHAIRA & PRN zofran but increase doses as nausea is likely 2/2 chemotherapy patient was recently started on. - Will also continue scopolamine for now and hope that inducing a BM will help with nausea. Constipation - May be contributing to nausea. - Will try PO miralax and senokot S today to try to induce a BM. If unsuccessful will try a suppository. Thrombocytopenia - Will continue lovenox as patient has no signs of HIT. - Will continue to monitor w/ QD CBCs. 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 Isidro, consulted from ED. Appreciate recs. - Left kidney primary site with mets to T2 (s/p surgical decompression with partial lesion resection), right adrenal gland, & left humerus. - Started immunotherapy w/ Opdivo on the . - Palliative care on board, appreciate recs. h/o CAD - Will consider adding statin & ASA while in hospital. Anxiety - Will continue home diazepam. HTN - Will continue home prazosin. tobacco use - Hasn't smoked in 5 days 2/2 nausea. Doesn't want a nicotine patch right now. Will continue to monitor and encourage smoking cessation. dvt ppx: lovenox Abx: vancomycin IVFs: none <Francisca Cabrera - Last Filed: 12/11/17 10:27> Attending Addendum - Attending Addendum Date/Time: 12/11/17 [id number] I personally evaluated the patient and discussed the management with Dr. Cabrera. I agree with the History, Examination, Assessment and Plan documented above with any addition or exceptions noted below. Patient continues to report pain and nausea. This nausea began after initiating chemo regimen. Will increase the doses of Zofran that will hopefully get this chemo induced nausea under control. Modulate pain control as needed. Will add NSAID therapy to help offset this acute inflammatory response. Awaiting NSGY recs on his surgical site, but will continue IV antibiotics at this time as well as wound care. <Emilio Grijalva - Last Filed: 12/11/17 11:10>
[2017-12-11] MEDS: Enoxaparin Sodium 40 MG/0.4 ML SYRINGE SC SCH ×2 (07:58→20:20)
[2017-12-11] MEDS: Ondansetron PF 4 MG/2 ML Vial IVP PRN (08:01)
[2017-12-11] MEDS: Proctozone-HC 2.5% Cream 30 GM TUBE TOP SCH ×2 (08:04→20:25)
--- NOTE | 2017-12-11 08:51 | PRG ---
DATE OF SERVICE: 12/11/2017 Mr. Radford is known to me for a thoracic decompression and subtotal resection of a renal cell metastas is performed 6 weeks ago. We have seen him at his 2-week appointment where he was doing well and his incision was healed and intact. Since that time, he has undergone radiation treatments and has more recently initiated chemotherapy treatments. He was admitted 2 days ago to the hospital due to fever and concern for a wound infection and possible sepsis. I met with him this morning and he is resting comfortably with the exception of nausea, which he has been contending with now for the past couple of days. He also reports pain between his shoulder blad es. He does not appear to be toxic and neurologically he is at his baseline. From a neurosurgical perspective, my preference would be to treat this nonoperatively. We should con monument erector consultation of Infectious Disease Services. The Oncology Service has already seen him since h is hospitalization. We also need to work towards improved pain control.
[2017-12-11] MEDS: Senokot S 8.6-50 MG TAB PO SCH ×2 (09:54→20:21)
[2017-12-11] MEDS: Gabapentin 300 MG CAP PO SCH ×3 (09:54→20:21)
[2017-12-11] MEDS ORDERED: Ondansetron ODT 4 MG TAB PO ONE (10:13)
[2017-12-11] MEDS: Morphine ER 30 MG TAB PO SCH (10:50)
[2017-12-11] MEDS: Ondansetron PF 4 MG/2 ML Vial IVP SCH ×2 (11:47→22:36)
[2017-12-11] MEDS: Morphine 10 MG/ML VIAL SLOW IVP SCH ×3 (11:48→22:35)
[2017-12-11] MEDS: Famotidine 20 MG TAB PO SCH (20:20)
[2017-12-11] MEDS: Prazosin HCl 1 MG CAP PO SCH (20:20)
[2017-12-11] MEDS: Diazepam 5 MG TAB PO PRN (20:20)
[2017-12-11] MEDS: Vancomycin HCl 1.5 GM in Sodium Chloride 0.9% 250 ML 250 ML IVPB SCH (21:15)
[2017-12-11] MEDS: Calcium Carbonate 500 MG ChewTAB PO PRN (22:49)
[2017-12-12] MEDS: Morphine 10 MG/ML VIAL SLOW IVP SCH ×4 (04:57→22:28)
[2017-12-12] MEDS: Vancomycin HCl 1.5 GM in Sodium Chloride 0.9% 250 ML 250 ML IVPB SCH ×3 (05:00→22:26)
--- NOTE | 2017-12-12 06:44 | PDOC.FM ---
- Subjective Subjective: Mr. Radford is resting comfortably in bed, his N/V/D have improved, he has no complaints at this time. - Objective MAR Reviewed: Yes Vital Signs & Weight: Vital Signs (12 hours) Temp Pulse Resp BP Pulse Ox 12/12/17 04:00 98.6 F 86 16 104/63 92 L 12/12/17 00:49 98.9 F 85 16 109/67 92 L 12/11/17 19:54 98.7 F 83 16 128/66 96 Weight Admit Weight 84.82 kg Weight 84.82 kg I&O: 12/10/17 12/11/17 12/12/17 06:59 06:59 06:59 Intake Total 1999 900 Balance 1999 900 Result Diagrams: 12/11/17 04:55 12/10/17 04:26 <Lucas Palma - Last Filed: 12/12/17 09:38> - Objective Vital Signs & Weight: Vital Signs (12 hours) Temp Pulse Resp BP Pulse Ox 12/12/17 08:37 93 L 12/12/17 07:34 98.6 F 88 20 98/65 93 L 12/12/17 04:00 98.6 F 86 16 104/63 92 L 12/12/17 00:49 98.9 F 85 16 109/67 92 L Weight Admit Weight 84.82 kg Weight 84.82 kg I&O: 12/11/17 12/12/17 12/13/17 06:59 06:59 06:59 Intake Total 1999 2600 Balance 1999 2600 Result Diagrams: 12/11/17 04:55 12/10/17 04:26 <Emilio Grijalva - Last Filed: 12/12/17 10:22> Phys Exam - Physical Examination Constitutional: NAD HEENT: moist MMs Respiratory: no wheezing, no rales, no rhonchi, clear to auscultation bilateral Cardiovascular: RRR, no significant murmur Gastrointestinal: soft, non-tender Deviation from normal: dressing c/d/i <Lucas Palma - Last Filed: 12/12/17 09:38> Dx/Plan (1) Postoperative cellulitis of surgical wound Code(s): T81.49XA - INFECTION FOLLOWING A PROCEDURE, OTHER SURGICAL SITE, INIT Status: Acute (2) Lytic bone lesions on xray Code(s): M89.9 - DISORDER OF BONE, UNSPECIFIED Status: Acute (3) HTN (hypertension) Code(s): I10 - ESSENTIAL (PRIMARY) HYPERTENSION Status: Chronic (4) Renal cell carcinoma of left kidney Code(s): C64.2 - MALIGNANT NEOPLASM OF LEFT KIDNEY, EXCEPT RENAL PELVIS Status : Suspected - Plan Plan: Sepsis 2/2 surgical site incision infection - S. Aureus, sensitivities resulted. - Consider de-escalating to clinda today per sensitivities - Wound care consulted. - Stable at this time w/ no white count, but on immunosuppressive therapy. - Will consider d/c IVFs if patient feels less nauseous today. - Patient was seen by surgeon, Dr. Shepherd, yesterday who recommended continuing IV abx a little longer before taking back for I&O. Folliculitis of left chest, back and neck - Could be 2/2 to radiation as well as RCC as patient has had this occur before starting any CA treatments. - Will continue topical steroids since PO steroids are CI while on chemotherapy. Pain 2/2 metastatic bone pain - Palliative care on board, appreciate recs. - Will consider holding PO pain meds until nausea resolves and switch to all IV. Will continue fentanyl patch at 25mcg Q3days per recs of palliative care. - Will continue JAHAIRA gabapentin and PRN flexeril as tolerated by patient. Intractable N/V - Will continue JAHAIRA & PRN zofran but increase doses as nausea is likely 2/2 chemotherapy patient was recently started on. - Will also continue scopolamine for now and hope that inducing a BM will help with nausea. Constipation - May be contributing to nausea. - Will try PO miralax and senokot S today to try to induce a BM. If unsuccessful will try a suppository. Thrombocytopenia - Will continue lovenox as patient has no signs of HIT. - Will continue to monitor w/ QD CBCs. 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 Isidro, consulted from ED - Left kidney primary site with mets to T2 (s/p surgical decompression with partial lesion resection), right adrenal gland, & left humerus. - Started immunotherapy w/ Opdivo on the . - Palliative care on board, appreciate recs. Anxiety - Will continue home diazepam. HTN - Will continue home prazosin. tobacco use - Hasn't smoked in 5 days 2/2 nausea. Doesn't want a nicotine patch right now. Will continue to monitor and encourage smoking cessation. dvt ppx: lovenox Abx: vancomycin IVFs: none Dispo: de-escalate abx to clindamycin this evening, continue to monitor <Lucas Palma - Last Filed: 12/12/17 09:38> Attending Addendum - Attending Addendum Date/Time: 12/12/17 1021 I personally evaluated the patient and discussed the management with Dr. Palma. I agree with the History, Examination, Assessment and Plan documented above with any addition or exceptions noted below. Patient here with folliculitis and cellulitis with Staph aureus. Sensitivities resulted. Will continue on Vanc for the day and transition to Clindamyin tonight. Work on pain control. Nausea improved with increased doses of Zofran. Will add liquid dietary supplements to promote wound healing and nutrition. Possible discharge home tomorrow if doing well. <Emilio Grijalva - Last Filed: 12/12/17 10:22>
[2017-12-12] MEDS: Calcium Carbonate 500 MG ChewTAB PO PRN ×2 (08:25→17:17)
[2017-12-12] MEDS: Famotidine 20 MG TAB PO SCH ×2 (08:26→20:46)
[2017-12-12] MEDS: Gabapentin 300 MG CAP PO SCH ×3 (08:26→20:46)
[2017-12-12] MEDS: Senokot S 8.6-50 MG TAB PO SCH ×2 (08:26→20:46)
[2017-12-12] MEDS: Polyethylene Glycol 3350 17 GM Packet PO SCH (08:26)
[2017-12-12] MEDS: Lactated Ringer's 1,000 ML IV SCH ×3 (08:29→22:37)
[2017-12-12] MEDS: Proctozone-HC 2.5% Cream 30 GM TUBE TOP SCH ×2 (08:29→20:46)
--- NOTE | 2017-12-12 11:22 | EKG ---
Test Reason : Blood Pressure : / mmHG Vent. Rate : 088 BPM Atrial Rate : 088 BPM P-R Int : 168 ms QRS Dur : 088 ms QT Int : 368 ms P-R-T Axes : 066 -10 053 degrees QTc Int : 445 ms Normal sinus rhythm Normal ECG Confirmed by YAQUELIN NAVARRO, JORDI (12), image editor MAMIE MENDIOLA ([id number]) on 12/12/2017 11:22:29 AM Referred By: Confirmed By:JORDI JAMISON MD
[2017-12-12] MEDS: Ondansetron PF 4 MG/2 ML Vial IVP SCH ×2 (11:34→22:29)
[2017-12-12 13:38] LABS: Vancomycin, Trough 13.6 ug/mL
--- NOTE | 2017-12-12 20:19 | PRG ---
DATE OF SERVICE: 12/12/2017 Mr. Radford continues to recover from infection. He is currently undergoing antibiotic regimen. He snyder s completed radiation therapy, more recently started chemotherapy. He has a mild degree of pancytope renea. At this point, I have no intention of returning him to the operating room. We will continue to manage this medically.
[2017-12-12] MEDS: Prazosin HCl 1 MG CAP PO SCH (20:46)
[2017-12-12] MEDS: Enoxaparin Sodium 40 MG/0.4 ML SYRINGE SC SCH (20:46)
[2017-12-12] MEDS: Diazepam 5 MG TAB PO PRN (20:51)
[2017-12-12] MEDS: Clindamycin 150 MG CAP PO SCH (22:25)
[2017-12-13] MEDS: Clindamycin 150 MG CAP PO SCH ×3 (04:53→16:11)
[2017-12-13] MEDS: Scopolamine 1.5 mg/72 hour Patch TD SCH ×2 (04:56→11:30)
[2017-12-13] MEDS: Morphine 10 MG/ML VIAL SLOW IVP SCH ×2 (04:56→10:03)
--- NOTE | 2017-12-13 06:31 | PDOC.FM ---
- Subjective Subjective: Mr. Radford is sleeping comfortably in bed, he has no complaints at this time. He does not feel nauseous and is tolerating PO well. - Objective Vital Signs & Weight: Vital Signs (12 hours) Temp Pulse Resp BP Pulse Ox 12/13/17 03:40 98.9 F 86 18 91/53 L 93 L 12/13/17 00:00 98.7 F 87 18 105/61 94 L 12/12/17 20:00 98.4 F 84 18 113/63 96 Weight Admit Weight 84.82 kg Weight 84.82 kg I&O: 12/11/17 12/12/17 12/13/17 06:59 06:59 06:59 Intake Total 1999 2600 Balance 1999 2600 Result Diagrams: 12/11/17 04:55 12/10/17 04:26 <Lucas Palma - Last Filed: 12/13/17 09:57> - Objective Vital Signs & Weight: Vital Signs (12 hours) Temp Pulse Resp BP Pulse Ox 12/13/17 10:00 97/63 12/13/17 08:00 92 L 12/13/17 07:48 99.1 F 77 16 86/51 L 92 L 12/13/17 03:40 98.9 F 86 18 91/53 L 93 L 12/13/17 00:00 98.7 F 87 18 105/61 94 L Weight Admit Weight 84.82 kg Weight 84.82 kg I&O: 12/12/17 12/13/17 12/14/17 06:59 06:59 06:59 Intake Total 2600 Balance 2600 Result Diagrams: 12/11/17 04:55 12/10/17 04:26 <Emilio Grijalva - Last Filed: 12/13/17 10:20> Phys Exam - Physical Examination Constitutional: NAD HEENT: moist MMs Respiratory: no wheezing, no rales, no rhonchi, clear to auscultation bilateral Cardiovascular: RRR, no significant murmur, no rub Gastrointestinal: soft, non-tender Musculoskeletal: no edema Neurological: moves all 4 limbs Psychiatric: normal affect Skin: no rash <Lucas Palma - Last Filed: 12/13/17 09:57> Dx/Plan (1) Postoperative cellulitis of surgical wound Code(s): T81.49XA - INFECTION FOLLOWING A PROCEDURE, OTHER SURGICAL SITE, INIT Status: Acute (2) Lytic bone lesions on xray Code(s): M89.9 - DISORDER OF BONE, UNSPECIFIED Status: Acute (3) HTN (hypertension) Code(s): I10 - ESSENTIAL (PRIMARY) HYPERTENSION Status: Chronic (4) Renal cell carcinoma of left kidney Code(s): C64.2 - MALIGNANT NEOPLASM OF LEFT KIDNEY, EXCEPT RENAL PELVIS Status : Suspected - Plan Plan: Sepsis 2/2 surgical site incision infection - S. Aureus, sensitivities resulted. - Began on Clindamycin per sensitivities - Wound care consulted. - Stable at this time w/ no white count, but on immunosuppressive therapy. - consider d/c IVFs, encourage PO intake. - Patient was seen by surgeon, Dr. Shepherd, yesterday who recommended continuing IV abx a little longer before taking back for I&D. Folliculitis of left chest, back and neck - Could be 2/2 to radiation as well as RCC as patient has had this occur before starting any CA treatments. - Will continue topical steroids since PO steroids are CI while on chemotherapy. Pain 2/2 metastatic bone pain - Palliative care on board, appreciate recs. - Will continue fentanyl patch at 25mcg Q3days per recs of palliative care. - Will continue JAHAIRA gabapentin and PRN flexeril as tolerated by patient. Intractable N/V - Will continue JAHAIRA & PRN zofran but increase doses as nausea is likely 2/2 chemotherapy patient was recently started on. - Will also continue scopolamine for now and hope that inducing a BM will help with nausea. - consider switching meds back to PO as nausea has improved Constipation - May be contributing to nausea. - cont senakot and miralax Thrombocytopenia - Will continue lovenox as patient has no signs of HIT. - Will continue to monitor w/ QD CBCs. 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 Isidro, consulted from ED - Left kidney primary site with mets to T2 (s/p surgical decompression with partial lesion resection), right adrenal gland, & left humerus. - Started immunotherapy w/ Opdivo on the . - Palliative care on board, appreciate recs. Anxiety - Will continue home diazepam. HTN - Will continue home prazosin. tobacco use - Doesn't want a nicotine patch right now. Will continue to monitor and encourage smoking cessation. dvt ppx: lovenox Abx: vancomycin IVFs: none Dispo: encourage PO intake, possible DC today or tomorrow <Lucas Palma - Last Filed: 12/13/17 09:57> Attending Addendum - Attending Addendum Date/Time: 12/13/17 1019 I personally evaluated the patient and discussed the management with Dr. Palma. I agree with the History, Examination, Assessment and Plan documented above with any addition or exceptions noted below. Patient denies complaints this morning and has more energy in his voice. Tolerating Clindamycin well and pain improved control. He is no longer having nausea on higher dose of Zofran. Miralax helped with pain and nausea as well. If doing well this afternoon and feels well, can consider discharge home with good outpatient follow up with his specialists and PCP. <Emilio Grijalva - Last Filed: 12/13/17 10:20>
[2017-12-13] MEDS: Lactated Ringer's 1,000 ML IV SCH (07:52)
[2017-12-13] MEDS: Famotidine 20 MG TAB PO SCH (08:06)
[2017-12-13] MEDS: Calcium Carbonate 500 MG ChewTAB PO PRN ×2 (08:07→14:44)
[2017-12-13] MEDS: Proctozone-HC 2.5% Cream 30 GM TUBE TOP SCH (08:07)
[2017-12-13] MEDS: Gabapentin 300 MG CAP PO SCH ×2 (08:08→14:44)
[2017-12-13] MEDS: Polyethylene Glycol 3350 17 GM Packet PO SCH (08:08)
[2017-12-13] MEDS: Senokot S 8.6-50 MG TAB PO SCH (08:08)
[2017-12-13] MEDS ORDERED: HYDROcodone/Acetaminophen 10/325 mg Tablet PO PRN (10:15)
[2017-12-13] MEDS ORDERED: Ondansetron ODT 8 MG TAB PO PRN (10:16)
[2017-12-13 17:36] VITALS: BP 108/74; TEMP 98.5
--- NOTE | 2017-12-14 14:59 | DIS-2 ---
DATE OF ADMISSION: 12/09/2017 DATE OF DISCHARGE: 12/13/2017 RESIDENT: Lucas Palma DO ADMITTING ATTENDING: Bonifacio Liu M.D. DISCHARGE ATTENDING: Emilio Grijalva. CONSULTATIONS: 1. Neurosurgery, Dr. Joseph Shepherd M.D. 2. Oncology, Dr. Peng Isidro. PROCEDURES: Chest x-ray. Impression: Stable chest without evidence of acute pulmonary process. El ectrocardiogram normal sinus rhythm. PRIMARY DIAGNOSES: Sepsis secondary to surgical site incision infection, resolved. SECONDARY DIAGNOSES: 1. Folliculitis, left chest, back, neck. 2. Pain secondary to metastatic bone pain. 3. Intractable nausea, vomiting. 4. Constipation. 5. Thrombocytopenia. 6. Clear cell renal carcinoma of left kidney, stage 4. 7. Anxiety. 8. Hypertension. 9. Tobacco abuse. DISCHARGE MEDICATIONS: 1. Tums 1000 mg p.o. q.4 hours p.r.n. 2. Flexeril 10 mg p.o. t.i.d. p.r.n. 3. Issue 10/325, 2 tabs p.o. q.6 hours. 4. MS Contin 30 mg p.o. q.12 hours. 5. Valium 5 mg p.o. t.i.d. p.r.n. 6. Zantac 150 mg p.o. b.i.d. 7. Clindamycin 300 mg p.o. q.6 hours for 6 days. 8. Gabapentin 300 mg p.o. t.i.d. 9. Hydrocortisone 2.5, 10 mg topical b.i.d. 10. Zofran 8 mg p.o. b.i.d. 11. Prazosin 1 mg p.o. at bedtime. 12. Senokot 1 tab p.o. b.i.d. DISCONTINUED MEDICATIONS: None. HOSPITAL COURSE: The patient presented for fever and a surgical site skin infection. 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 He has spinal thoracic decompression with parti al excision of lesion on 10/30/2017, with Dr. Shepherd. He came to the ED today because the surgical si te wound on his back started draining yellow-green fluid and he had a reported temperature to 101. H e has completed radiotherapy and was started on immunosuppressive therapy with his first session was a few weeks ago. Since last session, he has had a flare up of painful skin lesions. He states that this has been going on since he started radiation was told that the treatment can cause these lesions . In the ER, he got 2 grams of cefepime 1 gram of vancomycin and 3 liters normal saline. Those anti biotics were continued. Pain medicine was continued. Pain was controlled. Culture of wound was res ulted of Staph aureus. Sensitivities noted. He was discharged on antibiotics that he was discharged with antibiotics per the sensitivities. CBC, CMP were monitored throughout his hospital stay with i mproving values. DISPOSITION: Stable. DISCHARGE INSTRUCTIONS: 1. Location: Home. 2. Diet: Regular. 3. Activity: As tolerated. 4. Follow up with Dr. екатерина Cabrera in 3 days. 5. Follow up with Peng Isidro in 7 days. 6. Follow up with Joseph Shepherd in 7 days.
== END 2017-12-13 17:50 | disposition home or self-care (01) | DRG 862 ==
LOC: ERS 20:09 → T4-B 21:29
PROVIDERS: ADMIT Family Medicine; ATTEND Family Medicine
DX: T81.41XA Infection following a procedure, superficial incisional surgical site, initial encounter (principal); A41.01 Sepsis due to Methicillin susceptible Staphylococcus aureus; C79.70 Secondary malignant neoplasm of unspecified adrenal gland; C64.2 Malignant neoplasm of left kidney, except renal pelvis; C79.51 Secondary malignant neoplasm of bone; T81.44XA Sepsis following a procedure, initial encounter; Z92.3 Personal history of irradiation; Z98.890 Other specified postprocedural states; I10 Essential (primary) hypertension; I25.10 Atherosclerotic heart disease of native coronary artery without angina pectoris; F17.211 Nicotine dependence, cigarettes, in remission; L73.9 Follicular disorder, unspecified; G89.3 Neoplasm related pain (acute) (chronic); F41.9 Anxiety disorder, unspecified; I25.2 Old myocardial infarction; K59.00 Constipation, unspecified; D69.6 Thrombocytopenia, unspecified
CPT/HCPCS: 36415; 71045; 80048; 80053; 80202; 81003; 81015; 83605; 85025; 87040; 87070; 87077; 87086; 87186; 87205; 87804; 93005; 96365; J0692; J1650; J2270; J2405; J3370; J7050; J8540; Q0162

== ENCOUNTER 2017-12-29 09:37 | Day surgery (SDC) | payer OTHER ==
[2017-12-29] MEDS ORDERED: Nivolumab 240 MG in Sodium Chloride 0.9% 250 ML 250 ML IVPB SCH (10:00)
[2017-12-29] MEDS ORDERED: SODIUM CHLORIDE 0.9% IV SCH (10:00)
[2017-12-29] MEDS ORDERED: IPILIMUMAB IV SCH (10:00)
[2017-12-29 10:17] VITALS: BP 133/92; TEMP 98
[2017-12-29] MEDS ORDERED: PALONOSETRON HCL 0.05 MG/ML 5 ML VIAL IVP SCH (10:45)
[2017-12-29] MEDS ORDERED: Sodium Chloride 0.9% 20 ML ONE (10:56)
[2017-12-29] MEDS ORDERED: Fluorouracil 700 MG in Sodium Chloride 0.9% 50 ML IVPB SCH (11:00)
[2017-12-29] MEDS ORDERED: Bevacizumab 330 MG in Sodium Chloride 0.9% 100 ML IVPB SCH (11:00)
[2017-12-29] MEDS ORDERED: Dexamethasone 10 MG/ML VIAL SLOW IVP SCH (11:00)
== END 2017-12-29 13:54 | disposition home or self-care (01) ==
LOC: ONC/OP 09:37
PROVIDERS: ATTEND Internal Medicine Hematology & Oncology
DX: Z51.11 Encounter for antineoplastic chemotherapy (principal); C64.2 Malignant neoplasm of left kidney, except renal pelvis; C79.51 Secondary malignant neoplasm of bone; F17.200 Nicotine dependence, unspecified, uncomplicated; Z88.8 Allergy status to other drugs, medicaments and biological substances; Z79.899 Other long term (current) drug therapy
CPT/HCPCS: 96413; 96417; J0640; J7050; J9035; J9190; J9228; J9299

== ENCOUNTER 2018-01-19 09:44 | Outpatient (CLI) | payer MEDICAID ==
--- NOTE | 2018-01-19 10:53 | RAD ---
CHEST TWO VIEWS: History: Cough. Neoplasm. Comparison: 12-09-17 FINDINGS: Normal cardiac silhouette. The pulmonary vessels and hilum are normal. Costophrenic angles are clear. No mass. No consolidation. No pneumothorax or osseous abnormalities. IMPRESSION: No acute cardiopulmonary process. POS: [facility]
== END 2018-01-19 09:45 | disposition home or self-care (01) ==
LOC: BICRAD 09:44
PROVIDERS: ATTEND Internal Medicine Medical Oncology
DX: R05 Cough (principal); C64.2 Malignant neoplasm of left kidney, except renal pelvis; C79.51 Secondary malignant neoplasm of bone
CPT/HCPCS: 36415; 71046; 80053; 82248; 83615; 84100; 84436; 84443; 84550

== ENCOUNTER 2018-01-20 08:45 | Day surgery (SDC) | payer MEDICAID ==
[2018-01-20] MEDS ORDERED: Sodium Chloride 0.9% 20 ML ONE ×2 (09:14→09:24)
[2018-01-20] MEDS ORDERED: Nivolumab 240 MG in Sodium Chloride 0.9% 250 ML 250 ML IVPB SCH (09:45)
[2018-01-20] MEDS ORDERED: SODIUM CHLORIDE 0.9% IV SCH (10:00)
[2018-01-20] MEDS ORDERED: IPILIMUMAB IV SCH (10:00)
[2018-01-20 10:05] VITALS: BP 155/89; TEMP 98.6
== END 2018-01-20 14:47 | disposition home or self-care (01) ==
LOC: ONC/OP 08:45
PROVIDERS: ATTEND Internal Medicine
DX: Z51.11 Encounter for antineoplastic chemotherapy (principal); C64.2 Malignant neoplasm of left kidney, except renal pelvis; C79.51 Secondary malignant neoplasm of bone; Z88.8 Allergy status to other drugs, medicaments and biological substances
CPT/HCPCS: 96413; 96417; J7050; J9228; J9299

== ENCOUNTER 2018-01-26 14:24 | Outpatient (CLI) | payer MEDICAID ==
--- NOTE | 2018-01-26 19:35 | MRI ---
MRI OF THE LUMBAR SPINE WITHOUT AND WITH CONTRAST: 01/26/18 COMPARISON: CT abdomen/pelvis 10/28/17. HISTORY: Renal cell carcinoma with metastasis to the spine. Status post surgery and radiation therapy. Worseni ng lower extremity numbness and weakness. TECHNIQUE: Multiplanar and multisequence MRI images were obtained of the lumbar spine without and with IV contra st. FINDINGS: The vertebral bodies and intervertebral discs demonstrate normal height and alignment without fractur e or subluxation. There is mild desiccation of the L4-5 and L5-S1 intervertebral discs. There is a mixed solid and cystic mass in the left kidney which represents the patient's known renal cell cancer. There appears to be an enlarged left retroperitoneal lymph node, only partially visualiz ed. The other prevertebral and paraspinal soft tissues are unremarkable. No marrow signal abnormality is seen. No abnormal enhancement is seen within the bones visualized on this exam. No significant bulge or protrusion is seen throughout the lumbar spine. No neural foraminal or centra l canal stenosis is seen. No posterior facet arthrosis. IMPRESSION: 1. No significant lumbar spine abnormality. 2. Left renal mass with likely retroperitoneal adenopathy. POS: [facility]
--- NOTE | 2018-01-26 20:39 | MRI ---
MRI THORACIC SPINE WITH AND WITHOUT CONTRAST: HISTORY: The patient has T2 osseous metastasis. The patient has undergone surgical resection. The patient is having numbness down both shoulders. Extremity weakness and numbness. COMPARISON: 10/27/2017 TECHNIQUE: MRI thoracic spine is performed with and without intravenous Gadolinium administration. Multisequent ial, multiplanar imaging is performed. FINDINGS: There is evidence of post surgical change involving the spinous process and the posterior elements at T2. There is an overlying T2 hyperintense, T1 hypointense collection, with peripheral enhancement. A postoperative seroma is favored. Infection cannot be excluded, given the presence of peripheral e nhancement. This collection measures 5.5 x 5.6 cm. A component of this collection does abut the pos terior aspect of the central spinal canal. There is abnormal T1 marrow signal hypointensity with ass ociated T2 hyperintensity and enhancement involving the posterior elements at T2. This abnormal sign al intensity involves the lamina and facets bilaterally. There is evidence of bony expansion. There is resultant severe central canal stenosis. The visualized thoracic cord, at the T2 level, appears to be significantly deformed. There does appear to be T2 hyperintensity in the cord, suggesting cord edema. No abnormal enhancement. The remainder of the thoracic cord has normal size and signal inte nsity. The remainder of the thoracic central spinal canal is patent. Incidental hemangioma at T7 is noted. The neural foramina are patent throughout the thoracic spine, with the exception of the T2-T3 level. At the T2-T3 level, there is severe right and mild left neura l foraminal narrowing. IMPRESSION: 1. Postoperative changes involving the T2 level. There is evidence of severe central canal stenosis at T2 secondary to osseous metastases. There is severe right foraminal narrowing at T2-T3. There i s mild left foraminal narrowing at T2-T3. 2. Postoperative fluid collection, which is presumed to be a seroma. An infected fluid collection c annot be completely excluded. The results of the study were discussed with Dr. Isidro on 01/26/2018 at 4:47 p.m. CODE AL POS: KIM
== END 2018-01-26 14:25 | disposition home or self-care (01) ==
LOC: MRI 14:24
PROVIDERS: ATTEND Internal Medicine Hematology & Oncology
DX: C64.2 Malignant neoplasm of left kidney, except renal pelvis (principal); C79.51 Secondary malignant neoplasm of bone; R20.0 Anesthesia of skin; R29.898 Other symptoms and signs involving the musculoskeletal system; M48.04 Spinal stenosis, thoracic region; N28.89 Other specified disorders of kidney and ureter; Z98.890 Other specified postprocedural states; Z92.3 Personal history of irradiation
CPT/HCPCS: 72157; 72158

== ENCOUNTER 2018-01-26 17:06 | Inpatient (IN) | payer MEDICAID ==
[2018-01-26] MEDS ORDERED: Diazepam 5 MG TAB ONE (18:00)
[2018-01-26] MEDS ORDERED: HYDROmorphone 0.5 MG/0.5 ML SYRINGE ONE (18:00)
[2018-01-26 18:22] LABS: #Basophils 0.1 thou/uL (0.0-0.2); #Eosinphils 0.2 thou/uL (0.0-0.7); #Lymphocytes 1.2 thou/uL (1.20-3.40); #Monocytes 0.8 thou/uL (0.11-0.59); #Neutrophils 8.2 thou/uL (1.40-6.50); %Basophils 0.5 % (0.0-1.0); %Eosinophils 2.1 % (0.0-10.0); %Lymphocytes 11.8 % (21.0-51.0); %Monocytes 7.4 % (0.0-10.0); %Neutrophils 78.2 % (42.0-75.0); Mean Corpuscular HGB CONC 34.7 g/dL (32.0-36.0); Mean Corpuscular Hemoglobin 32.7 pg (27.0-31.0); Mean Corpuscular Volume 94.4 fL (78.0-98.0); Mean Platelet Volume 6.9 fL (7.4-10.4); Platelet Count 300 thou/uL (130-400); Red Blood Cell (RBC) Count 3.98 mill/uL (4.70-6.10); White Blood Cell (WBC) Count 10.5 thou/uL (4.8-10.8)
[2018-01-26 18:28] LABS: INR-International Normal Ratio 1.1; PTT 30.4 SEC (22.9-36.1); Prothrombin Time 14.4 SEC (12.0-14.7)
[2018-01-26] MEDS ORDERED: HYDROcodone/Acetaminophen 10/325 mg Tablet ONE (18:30)
[2018-01-26] MEDS ORDERED: Dexamethasone 10 MG/ML VIAL ONE (18:31)
[2018-01-26 18:46] LABS: ALT (SGPT) 10 U/L (8-55); AST (SGOT) 8 U/L (5-34); Albumin 4.5 g/dL (3.5-5.0); Alkaline Phosphatase 64 U/L (40-150); Anion Gap 13 mmol/L (10-20); BUN (Urea Nitrogen) 12 mg/dL (8.9-20.6); Bilirubin, Total 0.3 mg/dL (0.2-1.2); Calc. Creatinine Clearance 0 mL/min (70-130); Calcium 9.7 mg/dL (7.8-10.44); Carbon Dioxide 22 mmol/L (22-29); Chloride 106 mmol/L (98-107); Estimated GFR-MDRD Greater than 90; Glucose 99 mg/dL (70-105); Potassium 3.8 mmol/L (3.5-5.1); Protein, Total 7.5 g/dL (6.0-8.3); Sodium 137 mmol/L (136-145)
--- NOTE | 2018-01-26 19:05 | PDOC.FPRHP ---
- History of Present Illness Chief Complaint: Numbness History of Present Illness: Mr. Radford presents from the MRI suite after instructed by Dr. Isidro to head to the ED He reports for the past 2-3 weeks he has noticed increasing changes in lower extremity sensation and functioning. symptoms including, feet not doing what his brain tells them, not knowing where to scratch on his leg when it itches, not feeling his hand scratching, increased muscle weakness, and urinary hesitation. He was discharged from the hospital approximately 2 months ago on antibiotics for a surgical site infection. He discontinued those abx yesterday per Dr. Liriano pending this MRI read. ED Course: valium, norco, decadron - Allergies/Adverse Reactions Allergies Allergy/AdvReac Type Severity Reaction Status Date / Time ondansetron [From Zofran] Allergy Intermediate Headache Verified 01/26/18 21:37 prochlorperazine Allergy Verified 01/26/18 21:37 [From Compazine] - Home Medications Medication Instructions Recorded Confirmed Type Amlodipine [Norvasc] 5 mg PO DAILY 01/26/18 01/26/18 History Cephalexin [Keflex] 500 mg PO Q12H 01/26/18 01/26/18 History Clindamycin HCl [Cleocin] 300 mg PO TID 01/26/18 01/26/18 History Diazepam [Valium] 5 mg PO TID PRN 01/26/18 01/26/18 History Gabapentin [Neurontin] 600 mg PO QID 01/26/18 01/26/18 History HYDROcodone Bit/APAP 10/325 [[place]] 1 tab PO Q6HR PRN 01/26/18 01/26/18 History Promethazine [Phenergan] 25 mg PO Q6HR PRN 01/26/18 01/26/18 History - History PMHx: Stage 4 RCC, HTN, CAD PSHx: Spinal lesion decompression, facial reconstruction FHx: CAD Social: former smoker, 40 pk year - Review of Systems General: reports: fever/chills, fatigue. denies: night sweats Eyes: denies: eye pain, vision changes ENT: denies: nasal congestion, rhinorrhea Respiratory: reports: shortness of breath, exercise intolerance. denies: cough , congestion Cardiovascular: denies: chest pain, palpitation, edema Gastrointestinal: denies: nausea, vomiting, diarrhea Genitourinary: reports: other (hesitancy). denies: incontinence, dysuria Skin: reports: lesions (improved). denies: rashes Musculoskeletal: reports: pain, tenderness Neurological: reports: weakness. denies: numbness, syncope - Vital signs BP: 161/94 HR: 81 RR: 18 Tmax: 98.2 Pox: 97% on RA Wt: 89.8kg - Physical Exam Constitutional: NAD, awake, alert and oriented HEENT: normocephalic and atraumatic, EOMI, grossly normal vision, grossly normal hearing, MMM Neck: supple, trachea midline Chest: no-tender to palpation, no lesions Heart: RRR, normal S1/S2, no murmurs/rubs/gallops Lungs: CTAB, no respiratory distress, good air movement Abdomen: soft, non-tender, bowel sounds present, no masses/distention Musculoskeletal: normal structure, normal tone, ROM grossly normal Neurological: no focal deficit, CN II-XII intact Skin: no rash/lesions, good turgor Heme/Lymphatic: no unusual bruising or bleeding Psychiatric: normal mood and affect FMR H&P: Results - Labs Result Diagrams: 01/27/18 05:51 01/27/18 05:51 Lab results: WBC 10.5 thou/uL (4.8-10.8) 01/26/18 18:12 Hgb 13.0 g/dL (14.0-18.0) L 01/26/18 18:12 Hct 37.6 % (42.0-52.0) L 01/26/18 18:12 MCV 94.4 fL (78.0-98.0) 01/26/18 18:12 Plt Count 300 thou/uL (130-400) 01/26/18 18:12 Neutrophils % 78.2 % (42.0-75.0) H 01/26/18 18:12 Sodium 137 mmol/L (136-145) 01/26/18 18:12 Potassium 3.8 mmol/L (3.5-5.1) 01/26/18 18:12 Chloride 106 mmol/L (98-107) 01/26/18 18:12 Carbon Dioxide 22 mmol/L (22-29) 01/26/18 18:12 BUN 12 mg/dL (8.9-20.6) 01/26/18 18:12 Creatinine 0.80 mg/dL (0.7-1.3) 01/26/18 18:12 Glucose 99 mg/dL (70-105) 01/26/18 18:12 Calcium 9.7 mg/dL (7.8-10.44) 01/26/18 18:12 Total Bilirubin 0.3 mg/dL (0.2-1.2) 01/26/18 18:12 AST 8 U/L (5-34) 01/26/18 18:12 ALT 10 U/L (8-55) 01/26/18 18:12 Alkaline Phosphatase 64 U/L (40-150) 01/26/18 18:12 Serum Total Protein 7.5 g/dL (6.0-8.3) 01/26/18 18:12 Albumin 4.5 g/dL (3.5-5.0) 01/26/18 18:12 FMR H&P: A/P - Problem List (1) Spinal compression fracture Status: Acute Code(s): M48.50XA - COLLAPSED VERTEBRA, NEC, SITE UNSP, INIT (2) Renal cell carcinoma of left kidney Status: Suspected Code(s): C64.2 - MALIGNANT NEOPLASM OF LEFT KIDNEY, EXCEPT RENAL PELVIS (3) Coronary artery disease Status: Chronic Code(s): I25.10 - ATHSCL HEART DISEASE OF [place] CORONARY ARTERY W/O ANG PCTRS (4) HTN (hypertension) Status: Chronic Code(s): I10 - ESSENTIAL (PRIMARY) HYPERTENSION - Plan Spinal compression fracture - reported to be seen on thoracic MRI, read pending - neurosurgery consulted from the ED, will evaluate in AM, NPO at midnight - steroids given in ED RCC stage 4 - seen by Dr. Isidro outpatient, official consult in AM - continue home medications - immunotherapy, lower threshold for suspicion of infection - abx/BCx if fevers hx of surgical site infection - does no appear concerning at this time - MRI read pending - consult Dr. Liriano in AM if MRI suspicious for abcess/osteomyelitis - repeat CBC in AM HTN - pressures above goal on admission, continue home meds CAD - aware, monitor Code: full ppx: lovenox Disposition/LOS: admit to oncology, monitor for infectious process FMR H&P: Upper Level - Pertinent history 47 y/o M with mets from stave 4 RCC presents after a call stating he needed to go to the ED because of his MRI results. MRI apparently revealed a compression fracture. He states his main complaint is that he has worsening LE weakness, foot drop, imbalance. He also endorses pain 2/2 mets in his back and abdomen L> R. Also complains of red face, agitation, memory loss, weakness, difficulty urinating, SOB, and chills. Denies incontinence, loss of bowel/sphincter tone, fevers, WILL[place], vision changes, Chest pain. Weakness has been worsening since and only in LE. VSS. Pain controlled. Full code discussed w patient and . - Pertinent findings PE GEN: NAD CARDIO: RRR, No MRG RESP: Lungs CTAb, NO wheezes SKIN: Healed excoriations on L shoulder and mid back ABD: Nondistended, soft, nontender PSYCH: Appropriate affect - Plan Date/Time: 01/26/181903 I, Jorge Luis Escalante, have evaluated this patient and agree with findings/plan as outlined by internet systems administrator resident. Pertinent changes/additions are listed here. 1: Apparent Compression fracture T1 2/2 bone mets - MRI report is pending, so this is per ED physician report. He is having worsening compressive symptoms in his LE. Will need evaluation with neurosurgery in the AM. Will place NPO for potential surgery. S/p steroid in ED. 2. RCC Stage IV - Sees Dr Isidro. Recently on chemo and on pain medications. 3. CAD - No chest pain. Continue home medications 4. Anxiety - On home Valium 5 Infected skin wound - recently saw Dr Liriano and finishing double antibiotic therapy. No visible skin infections. Attending Addendum - Attending Addendum Date/Time: 01/26/182047 I personally evaluated the patient and discussed the management with Dr. Palma and Dr. Escalante I agree with the History, Examination, Assessment and Plan documented above with any addition or exceptions noted below. 47 yo male with stage 4 RCC presents to ER for evaluation of worsening neurologic symptoms. Patient reports progressive parathesias to lower extremities and muscle weakness with noted changes in gait and increased falls. Also notes increased back pain and change in urination. MRI indicating compression fracture at T2 with surrounding fluid collection likely seroma. Severe central canal stenosis and right foraminal stenosis at T2 area from metastases. VS reviewed. Labs reviewed. 1. Stage 4 RCC with mets to spine: Onc following. Monitor pain control. 2. Compression fracture and spinal stenosis related to mets to spine: Pain control. Neurosurg consulted. Will start high dose steroids. Will evaluate in AM. 3. Seroma causing mass effect: Neurosurg to evaluate in AM. Pain control over night. Monitor for progression of neurological signs. Tung
[2018-01-26 20:29] VITALS: BMI 24.9
[2018-01-26] MEDS ORDERED: Nicotine 21 MG PATCH TD SCH (22:00)
[2018-01-26] MEDS ORDERED: Promethazine 25 MG TAB PO PRN (22:58)
[2018-01-26] MEDS ORDERED: Clindamycin 150 MG CAP PO SCH (23:15)
[2018-01-26] MEDS ORDERED: Cephalexin 250 MG CAP PO SCH (23:15)
[2018-01-26] MEDS ORDERED: Gabapentin 300 MG CAP PO SCH (23:15)
[2018-01-26] MEDS: Diazepam 5 MG TAB PO PRN (23:17)
[2018-01-26] MEDS: HYDROcodone/Acetaminophen 10/325 mg Tablet PO PRN (23:18)
[2018-01-26] MEDS: Morphine 4 MG/ML VIAL SLOW IVP PRN (23:18)
[2018-01-26 23:37] LABS: Bilirubin Negative (Negative); Blood, Urine Negative (Negative); Clarity TURBID (Clear); Glucose, Urine (Dipstick) Negative (Negative); Leukocyte Negative (Negative); Nitrite Negative (Negative); Protein, Urine (Dipstick) Negative (Neg-Trace); Specific Gravity, Urine 1.026 (1.002-1.036); Urobilinogen 0.2 mg/dL (0.2-1.0)
[2018-01-26 23:40] LABS: Bacteria/HPF None Seen HPF (None Seen); Squamous Epithelial 0-3 HPF (0-3); WBC/HPF 0-3 HPF (0-3)
[2018-01-26 23:51] LABS: Crystals/HPF 3+ AMORPH PHOS HPF (Negative); Hyaline Casts/LPF NONE SEEN LPF (0-3 Hyaline)
[2018-01-27] MEDS: Morphine 4 MG/ML VIAL SLOW IVP PRN ×3 (04:09→13:58)
--- NOTE | 2018-01-27 05:05 | PDOC.FM ---
- Subjective Subjective: Pt is agitated this morning. He states that the steroids received in the ER took away his numbness and his nerve pain is worse now. He denies dyspnea, chest pain, nausea, or vomiting. - Objective MAR Reviewed: Yes Vital Signs & Weight: Vital Signs (12 hours) Temp Pulse Resp BP Pulse Ox 01/27/18 04:00 97.7 F 72 16 120/68 97 01/27/18 00:26 98.0 F 80 18 133/75 94 L 01/26/18 20:58 97.9 F 75 16 123/67 98 01/26/18 19:50 97.9 F 75 16 123/67 98 Weight Weight 83.461 kg Result Diagrams: 01/27/18 05:51 01/27/18 05:51 Phys Exam - Physical Examination Mildly agitated, laying in bed dry mmm Neck: no JVD, supple Respiratory: no wheezing, clear to auscultation bilateral Cardiovascular: RRR, no significant murmur Gastrointestinal: soft, non-tender, no distention, positive bowel sounds Improved sensation in his distal extremities Psychiatric: A&O x 3 Dx/Plan (1) SCC (spinal cord compression) Code(s): G95.20 - UNSPECIFIED CORD COMPRESSION Status: Acute (2) Coronary artery disease Code(s): I25.10 - ATHSCL HEART DISEASE OF [place] CORONARY ARTERY W/O ANG PCTRS Status: Chronic (3) HTN (hypertension) Code(s): I10 - ESSENTIAL (PRIMARY) HYPERTENSION Status: Chronic (4) Renal cell carcinoma of left kidney Code(s): C64.2 - MALIGNANT NEOPLASM OF LEFT KIDNEY, EXCEPT RENAL PELVIS Status : Suspected - Plan Plan: This is a 47 yo male with a pmh of CAD and HTN Spinal cord compression -MRI shows foramenal narrowing of T2 with compression of the spinal cord at that level -Neurosurgery consulted from ER and will assess pt in the AM, NPO this morning -Steroids given in the morning -on 10/30, pt had thoracic decompression with partial extraction of bony lesion effecting this level -Pt's pain is managed by gabapentin, norco, and morphine for breakthrough pain RCC stage 4 -Dr. Isidro is following outpt, will consult this morning -Continue home medications -Pt is currently on immunotherapy, we are continuing home abx until case discussed with Dr. Heri Linares of surgical site infection -MRI shows fluid collection believed to be a seroma, infection cannot be ruled out -We will monitor VSS and WBC HTN -Continue home meds CAD
[2018-01-27 06:14] LABS: #Lymphocytes 0.7 thou/uL (1.20-3.40); #Monocytes 0.2 thou/uL (0.11-0.59); #Neutrophils 6.8 thou/uL (1.40-6.50); %Basophils 0.3 % (0.0-1.0); %Eosinophils 0.1 % (0.0-10.0); %Lymphocytes 8.4 % (21.0-51.0); %Monocytes 2.7 % (0.0-10.0); %Neutrophils 88.5 % (42.0-75.0); Hemoglobin 13.2 g/dL (14.0-18.0); Mean Corpuscular HGB CONC 34.1 g/dL (32.0-36.0); Mean Corpuscular Hemoglobin 32.2 pg (27.0-31.0); Mean Corpuscular Volume 94.3 fL (78.0-98.0); Mean Platelet Volume 7.2 fL (7.4-10.4); Platelet Count 353 thou/uL (130-400); RBC Distribution Width 12.9 % (11.5-14.5); Red Blood Cell (RBC) Count 4.09 mill/uL (4.70-6.10); White Blood Cell (WBC) Count 7.7 thou/uL (4.8-10.8)
[2018-01-27 06:27] LABS: ALT (SGPT) 11 U/L (8-55); AST (SGOT) 8 U/L (5-34); Albumin 4.5 g/dL (3.5-5.0); Alkaline Phosphatase 66 U/L (40-150); Anion Gap 13 mmol/L (10-20); BUN (Urea Nitrogen) 15 mg/dL (8.9-20.6); Bilirubin, Total 0.3 mg/dL (0.2-1.2); Calc. Creatinine Clearance 135 mL/min (70-130); Calcium 9.5 mg/dL (7.8-10.44); Carbon Dioxide 21 mmol/L (22-29); Chloride 106 mmol/L (98-107); Estimated GFR-MDRD Greater than 90; Glucose 167 mg/dL (70-105); Potassium 4.4 mmol/L (3.5-5.1); Protein, Total 7.5 g/dL (6.0-8.3); Sodium 136 mmol/L (136-145)
[2018-01-27] MEDS ORDERED: Gabapentin 300 MG CAP PO SCH ×4 (08:30→18:00)
[2018-01-27] MEDS ORDERED: Clindamycin 150 MG CAP PO SCH (09:00)
[2018-01-27] MEDS ORDERED: Amlodipine 5 MG TAB PO SCH (09:00)
[2018-01-27] MEDS ORDERED: Enoxaparin Sodium 40 MG/0.4 ML SYRINGE SC SCH (09:00)
[2018-01-27] MEDS ORDERED: Cephalexin 250 MG CAP PO SCH (09:00)
[2018-01-27] MEDS ORDERED: Nicotine 21 MG PATCH TD SCH (09:00)
[2018-01-27] MEDS: HYDROcodone/Acetaminophen 10/325 mg Tablet PO PRN (09:33)
[2018-01-27] MEDS: Diazepam 5 MG TAB PO PRN (09:34)
--- NOTE | 2018-01-27 09:43 | CON ---
DATE OF CONSULTATION: HISTORY OF PRESENT ILLNESS: Mr. Radford is a 47-year-old man known to us for resection of a metastatic renal cell carcinoma mass in the posterior thoracic spine causing severe cord compression. We followed up with him in the outpatient setting several times, and unfortunately, over the last week and a half, he has regressed neurologically again, where he is starting to have gait discoordination, some subjective motor weakness and sensory level from around T3 down. However, he was given a dose of 10 of Decadron in the emergency department and at bedside this morning and most of this numbness has actually resolved. He also feels like his strength has returned, although he is left with some right-sided flank paresthesia, which is mild compared to what it was yesterday, so this is a drastic improvement. MRI was performed with and without contrast by his oncologist yesterday that reveals large fluid collection posterior to the surgical site that is superficial to muscle and fascia. It is entirely conceivable that this is compressive in some part to the spinal canal. Neurosurgery's recommendation right now would be nonsurgical intervention, but perhaps Interventional Radiology could aspirate this fluid collection for the purpose of decompressing and improving his symptoms. If not, we will have to reconvene and discuss other options . Job ID: [id number]
--- NOTE | 2018-01-27 13:25 | PRG ---
DATE OF SERVICE: 01/27/2018 SUBJECTIVE: Mr. Radford is a 47-year-old gentleman known to me for subtotal resection of a renal cell metastasis over the T2 segment of the thoracic spine performed nearly 3 months ago. He returned yesterday to the ER with subsequent admission to the hospital for decline in his neurologic status, which included a numbness in the lower extremities and worsening gait. He had a thoracic MRI scan performed, which shows compression in this area as well as a large T2 hyperintense fluid collection over the surgical site, which is producing mass effect upon remaining tumor as well as spinal cord. He had a high dose of steroids and today reports overall dramatic improvement in his symptoms back to his baseline state just prior around Thanksgiving timeframe. I have advocated for ultrasound-guided needle aspiration of the fluid collection to reduce pressure as well as obtain Gram stain cultures. He has improved to the point neurologically that I believe if that can be done in a timely fashion, they can be discharged today with short-term followup with our office as well as with Dr. Liriano. Job ID: [id number]
[2018-01-27] MEDS ORDERED: Sodium Bicarbonate 2.5 MEQ/5 ML VIAL ONE (13:28)
[2018-01-27] MEDS ORDERED: Lidocaine 1% PF 5 ML VIAL ONE (13:31)
--- NOTE | 2018-01-27 13:39 | PRG ---
DATE OF SERVICE: 01/27/2018 ADDENDUM: This is an addendum note of Dr. Drew Oneill. Mr. Radford is a very unfortunate gentleman with metastatic renal cell carcinoma. He was admitted with some lower extremity paresthesias and weakness, which were worsening over the last several days. MRI did reveal a fluid collection in the involved area of the thoracic spine, which was seen by Neurosurgery. They recommended IR to consider a CT-guided drainage. We will await their consultation and proceed accordingly. Job ID: [id number]
[2018-01-27 13:43] VITALS: BP 158/78; TEMP 97.8
--- NOTE | 2018-01-27 15:08 | ULT ---
SONOGRAPHIC GUIDED FLUID ASPIRATION UPPER THORACIC SPINE: HISTORY: Loculated fluid collection, posterior to the upper cervical spine, in the area of prior surgery. FINDINGS: After explaining the procedure and answering all questions, sonographic survey shows a large multiloc ulated fluid collection at the posterior aspect of the upper thoracic spine. Sterile technique, buff ered local anesthesia, sonographic guidance, and an inferior approach were used to carefully thread a 19 gauge Yueh needle and catheter through as many pockets of the fluid as possible. The catheter wa s left to carefully drain a total volume of 25 mL of slightly turbid, blood-tinged fluid that was sen t to pathology for evaluation. Post procedure imaging showed minimal residual fluid. The patient to lerated the procedure well and was returned in improved condition. IMPRESSION: Technically successful sonographic guided aspiration, postoperative fluid collection. Pathology is p ending. POS: KIM
[2018-01-27 16:07] LABS: BF Color Red; Clarity Cloudy/Turbid (Clear); RBC Background Count 0.003; RBC Count-Automated 54000 /cumm; Tube # EDTA
[2018-01-27 16:08] LABS: BF WBC/Nonhematics Ct. - Manua 107 /cumm
[2018-01-27 16:26] LABS: BF Segmented Neutrophils 5 %; Cell Count Non Hematic 8 %; Eosinophils 18 %; Lymphocytes 67 %
--- NOTE | 2018-01-27 18:41 | CON ---
DATE OF CONSULTATION: REASON FOR CONSULTATION: Metastatic renal cell carcinoma. HISTORY OF PRESENT ILLNESS: 47-year-old male with metastatic renal cell carcinoma to T2 and left humeral head and right adrenal gland, currently on nivolumab plus ipilimumab immunotherapy, presenting to the hospital from the MRI suite after MRI of the spine showed severe canal stenosis in T2 to T3. The patient initially presented to the hospital with back pain and lower extremity numbness in October 2017 and had severe canal stenosis at that point, and this is when he was diagnosed with metastatic renal cell carcinoma. On October 30, 2017, he had thoracic decompression with partial excision of the lesion in T2 by Dr. 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 The patient also received palliative radiation to this lesion as well as the left humeral head on November 23, 2017. He was started on nivolumab plus ipilimumab on December 08, 2017, and has received 3 cycles thus far. Next is due on February 10. The patient last saw me in clinic on January 19, 2018 and was still having mild extremity weakness, right greater than left, with burning sensation and numbness in his legs, his left and right flank as well, which had been slowly worsening. I sent him for MRI, which revealed severe stenosis, T2-T3 that was informed by Dr. Avila of the reading and had the patient sent straight to the ER. The patient received 10 mg of dexamethasone last night and his numbness completely resolved in his legs, left flank, and had 90% to 95% improvement in the numbness in his right flank. The patient says he can now feel his feet for the first time in a very long time and he is more steady when walking. The patient denies any urinary incontinence or bowel incontinence, though he does have urinary hesitation at times. He still has severe pain around his lesion over T2 and says he is able to palpate some fluid in this area. MRI of the spine done prior to admission showed an overlying T2 hyperintense, T1 hypointense fluid collection with peripheral enhancement with the postop seroma being favored, though infection cannot be excluded. The collection measured 5.5 x 5.6 cm in size. The patient currently denies any other symptoms at this time. REVIEW OF SYSTEMS: 10-point review of systems is negative except as per HPI. PAST MEDICAL HISTORY: Renal cell carcinoma, hypertension, coronary artery disease. PAST SURGICAL HISTORY: Spinal lesion, decompression at T2, and facial reconstruction. FAMILY HISTORY: Coronary artery disease. SOCIAL HISTORY: The patient is former [id number] smoker. ALLERGIES: ONDANSETRON AND PROCHLORPERAZINE. CURRENT MEDICATIONS: Reviewed. PHYSICAL EXAMINATION: VITAL SIGNS: Temperature 97.6, pulse 66, blood pressure 122/69, respirations 18, saturating 94% on room air. GENERAL APPEARANCE: The patient is lying in bed, in no acute distress. HEENT: Normocephalic, atraumatic. CARDIOVASCULAR: S1 and S2. Regular rate and rhythm. RESPIRATION: Clear to auscultation bilaterally without wheezing, rales, or rhonchi. ABDOMEN: Soft, nondistended, and nontender. MUSCULOSKELETAL: Severe tenderness to palpation over known T2 lesion with surrounding erythema. SKIN: No rashes. EXTREMITIES: No edema. NEUROLOGIC: The patient has sensation to touch in lower extremities and is able to move all 4 extremities. The patient is able to ambulate with a walker. LABORATORY DATA: White blood cell 7.7, hemoglobin 13.2, platelets 353. Sodium 136, potassium 4.7, BUN 15, creatinine 0.78, glucose 167, albumin 4.5. LFTs are within normal limits. IMAGING DATA: MRI of the thoracic spine with and without contrast dated January 26, 2018, has postoperative changes involving the T2 level. There is evidence of severe central canal stenosis at T2 secondary to osseous metastasis. There is severe right foraminal narrowing at T2-T3 and mild left foraminal narrowing at T2-T3. Postop fluid collection presumed to be a seroma; however, infection cannot be ruled out. MRI of the lumbar spine showed no suspicious osseous metastasis or cord compression. ASSESSMENT AND PLAN: 47-year-old male with metastatic renal cell carcinoma at T2 and other osseus lesions, currently on nivolumab and ipilimumab, presenting with worsening lower extremity numbness and difficulty walking, and weakness; found to have severe canal stenosis and fluid collection in T2-T3 level on MRI of the spine. The patient's symptoms dramatically improved with 10 mg of dexamethasone overnight and the patient is currently afebrile. The patient has been evaluated by Dr. Shepherd from Neurosurgery and the plan is currently a non-surgical approach involving fluid drainage by Interventional Radiology. The patient has had infection in this area before and received multiple antibiotics from Dr. Liriano and we will plan on testing this fluid through Gram stain and cultures to evaluate for recurrent or ongoing infection. If patient's symptoms continue to improve, especially after fluid drainage, then he could be discharged home with outpatient followup with myself, Dr. Liriano, and Dr. Shepherd. Due to response, the patient does not require ongoing steroids and this could potentially be detrimental to his immunotherapy treatment for his cancer. We will continue to follow this patient with you after drainage of his fluid. Thank you for this consult. Job ID: [id number]
--- NOTE | 2018-01-29 03:58 | DIS ---
DATE OF ADMISSION: 01/26/2018 DATE OF DISCHARGE: 01/27/2018 ADMITTING ATTENDING: Ailin Molina MD DISCHARGE ATTENDING: Parveen Nunez MD RESIDENT: Drew Oneill DO CONSULTS: 1. Neurosurgery, . 2. Oncology, Dr. Isidro. PROCEDURES: Ultrasound-guided cyst aspiration, sonographic-guided aspiration, postoperative fluid collection, pathology pending. PRIMARY DIAGNOSES: Metastatic renal cell carcinoma at the level of T2 with other osseous lesions. SECONDARY DIAGNOSES: 1. Hypertension. 2. Coronary artery disease. DISCHARGE MEDICATIONS: 1. Amlodipine 5 mg p.o. daily. 2. Keflex 500 mg p.o. every 12 hours. 3. Clindamycin 300 mg p.o. t.i.d. 4. Diazepam 5 mg p.o. t.i.d. 5. Gabapentin 600 mg p.o. q.i.d. 6. Hydrocodone/acetaminophen 10/325 p.o. every 6 hours p.r.n. pain. 7. Promethazine 25 mg p.o. every 6 hours. DISCONTINUED MEDICATIONS: Dexamethazone. BRIEF HISTORY OF PRESENT ILLNESS/HOSPITAL COURSE: This is a 47-year-old male with past medical history as above, who presented to the ER after an MRI showing spinal cord compression at the level of T2. In the ER, the patient received Valium, Lejunior, and Decadron. The Decadron worked overnight, and the patient regained the feeling in his legs for the first time in multiple weeks. Initially, the patient's pain was controlled. Neurosurgery was consulted, who performed aspiration of the cyst seen on MRI as mentioned above. At the time of discharge, the patient's pain was controlled on his home regimen of medication. DISPOSITION: Stable. DISCHARGE INSTRUCTIONS: 1. Location: Home. 2. Diet: Regular. 3. Activity: As tolerated. 4. Followup: Follow up with Dr. Isidro, and Dr. Gordon as instructed. Job ID: [id number]
--- NOTE | 2018-01-29 13:16 | PQF ---
TRAV MCADAMSBRI [id number] [id number] CLINICAL DOCUMENTATION CLARIFICATION FORM: POST DISCHARGE Addendum to original discharge summary date: ____ Late entry note date: __ DATE: 01/29/18 ATTN: Dr. Lopez Please exercise your independent, professional judgment in responding to the clarification form. Clinical indicators are provided on the bottom of this form for your review Please check appropriate box(s): Conflicting documentation was noted in the Medical Record, please clarify if patient is being treated/monitored for: [ ] Post op Seroma [ ] Cyst [ ] Seroma [ ] Other diagnosis [ x ] Unable to determine In addition, please specify: Present on Admission (POA): [x ] Yes [ ] No [ ] Unable to determine For continuity of documentation, please document condition throughout progress notes and discharge summary. Thank You. CLINICAL INDICATORS - SIGNS / SYMPTOMS/ LABS Seroma causing mass effect--H&P Compression of cord lower extremity weakness Hyperintense fluid collection over surgical site.--Progress note 01/27/18 RISK FACTORS History of surgical site infection H&P Maligancy of bone metastatic renal cell carcinoma mass in the posterior thoracic spine--Consult [facility] Aspiration with fluid drainage steroids resection of mass thoracic spine--consult [facility]ERNAND[facility] (This form is maintained as a part of the permanent medical record) 2014 [employer] All Rights Reserved [email or web address] [phone] [email or web address]
== END 2018-01-27 14:59 | disposition home or self-care (01) | DRG 543 ==
LOC: ERS 17:06 → ONC 18:30
PROVIDERS: ADMIT Student in an Organized Health Care Education/Training Program; ATTEND Student in an Organized Health Care Education/Training Program
PROC: 009U3ZX Drainage of Spinal Canal, Percutaneous Approach, Diagnostic (ICD-10-PCS; principal; 2018-01-27)
DX: C79.51 Secondary malignant neoplasm of bone (principal); G95.29 Other cord compression; C79.71 Secondary malignant neoplasm of right adrenal gland; C64.2 Malignant neoplasm of left kidney, except renal pelvis; I10 Essential (primary) hypertension; I25.10 Atherosclerotic heart disease of native coronary artery without angina pectoris; Z79.891 Long term (current) use of opiate analgesic; Z92.21 Personal history of antineoplastic chemotherapy; Z92.3 Personal history of irradiation; Z88.8 Allergy status to other drugs, medicaments and biological substances; Z87.891 Personal history of nicotine dependence; M48.04 Spinal stenosis, thoracic region; F41.9 Anxiety disorder, unspecified; I25.2 Old myocardial infarction
CPT/HCPCS: 36415; 72157; 72158; 76942; 80053; 81001; 85025; 85060; 85610; 85730; 87070; 87205; 89051; 96374; J1100; J1170; J1650; J2001; J2270

== ENCOUNTER 2018-02-10 10:50 | Day surgery (SDC) | payer MEDICAID ==
[2018-02-10] MEDS ORDERED: Sodium Chloride 0.9% 20 ML ONE (10:58)
[2018-02-10] MEDS ORDERED: SODIUM CHLORIDE 0.9% IV SCH (11:15)
[2018-02-10] MEDS ORDERED: IPILIMUMAB IV SCH (11:15)
[2018-02-10] MEDS ORDERED: Nivolumab 240 MG in Sodium Chloride 0.9% 250 ML 250 ML IVPB SCH (11:15)
[2018-02-10 12:13] VITALS: BP 157/85; TEMP 97.7
== END 2018-02-10 16:25 | disposition home or self-care (01) ==
LOC: ONC/OP 10:50
PROVIDERS: ATTEND Internal Medicine Hematology & Oncology
DX: Z51.11 Encounter for antineoplastic chemotherapy (principal); C64.2 Malignant neoplasm of left kidney, except renal pelvis; C79.51 Secondary malignant neoplasm of bone; F17.210 Nicotine dependence, cigarettes, uncomplicated; I10 Essential (primary) hypertension; I25.2 Old myocardial infarction; I25.10 Atherosclerotic heart disease of native coronary artery without angina pectoris; E78.00 Pure hypercholesterolemia, unspecified; K21.9 Gastro-esophageal reflux disease without esophagitis; Z88.8 Allergy status to other drugs, medicaments and biological substances; Z79.899 Other long term (current) drug therapy
CPT/HCPCS: 96413; 96417; J7050; J9228; J9299

== ENCOUNTER 2018-03-02 10:23 | Day surgery (SDC) | payer MEDICAID ==
[2018-03-02] MEDS ORDERED: Sodium Chloride 0.9% 30 ML ONE (10:28)
[2018-03-02] MEDS ORDERED: Sodium Chloride 0.9% 20 ML ONE (10:41)
[2018-03-02] MEDS ORDERED: Nivolumab 240 MG in Sodium Chloride 0.9% 250 ML 250 ML IVPB SCH (11:00)
[2018-03-02] MEDS ORDERED: Zoledronic Acid 4 MG in Sodium Chloride 0.9% 100 ML IVPB SCH (11:00)
[2018-03-02 12:03] VITALS: BP 140/80; TEMP 97.4
== END 2018-03-02 13:44 | disposition home or self-care (01) ==
LOC: ONC/OP 10:23
PROVIDERS: ATTEND Internal Medicine Hematology & Oncology
DX: Z51.11 Encounter for antineoplastic chemotherapy (principal); C64.2 Malignant neoplasm of left kidney, except renal pelvis; C79.51 Secondary malignant neoplasm of bone; I25.10 Atherosclerotic heart disease of native coronary artery without angina pectoris; E78.00 Pure hypercholesterolemia, unspecified; I10 Essential (primary) hypertension; I25.2 Old myocardial infarction; K21.9 Gastro-esophageal reflux disease without esophagitis; F17.210 Nicotine dependence, cigarettes, uncomplicated; Z79.899 Other long term (current) drug therapy; Z88.8 Allergy status to other drugs, medicaments and biological substances
CPT/HCPCS: 36415; 80053; 82248; 83615; 84100; 84436; 84443; 84550; 96367; 96413; 96415; J1642; J3489; J7050; J9299

== ENCOUNTER 2019-02-28 22:39 | Inpatient (IN) | payer MEDICAID ==
[2019-02-28] MEDS ORDERED: Ondansetron PF 4 MG/2 ML Vial ONE (23:36)
[2019-02-28] MEDS ORDERED: Morphine 4 MG/ML VIAL ONE (23:36)
[2019-03-01] LABS: #Eosinphils 0.2 thou/uL (0.0-0.7); #Monocytes 0.6 thou/uL (0.11-0.59); #Neutrophils 6.8 thou/uL (1.40-6.50); %Basophils 0.5 % (0.0-1.0); %Eosinophils 2.8 % (0.0-10.0); %Lymphocytes 11.5 % (21.0-51.0); %Neutrophils 78.1 % (42.0-75.0); Hemoglobin 12.6 g/dL (14.0-18.0); Mean Corpuscular HGB CONC 34.4 g/dL (32.0-36.0); Mean Corpuscular Hemoglobin 31.1 pg (27.0-31.0); Mean Corpuscular Volume 90.5 fL (78.0-98.0); Mean Platelet Volume 7.1 fL (7.4-10.4); Platelet Count 280 thou/uL (130-400); RBC Distribution Width 12.1 % (11.5-14.5); Red Blood Cell (RBC) Count 4.04 mill/uL (4.70-6.10); White Blood Cell (WBC) Count 8.7 thou/uL (4.8-10.8)
[2019-03-01 00:20] LABS: ALT (SGPT) 15 U/L (8-55); AST (SGOT) 12 U/L (5-34); Albumin 4.2 g/dL (3.5-5.0); Alkaline Phosphatase 72 U/L (40-110); Anion Gap 15 mmol/L (10-20); BUN (Urea Nitrogen) 14 mg/dL (8.9-20.6); Bilirubin, Total 0.5 mg/dL (0.2-1.2); Calc. Creatinine Clearance 0 mL/min (70-130); Calcium 8.6 mg/dL (7.8-10.44); Carbon Dioxide 25 mmol/L (22-29); Chloride 104 mmol/L (98-107); Estimated GFR-MDRD 89; Globulin 2.7 g/dL (2.4-3.5); Glucose 104 mg/dL (70-105); Potassium 3.9 mmol/L (3.5-5.1); Protein, Total 6.9 g/dL (6.0-8.3); Sodium 140 mmol/L (136-145)
[2019-03-01] MEDS ORDERED: Morphine 4 MG/ML VIAL ONE (01:51)
[2019-03-01] MEDS ORDERED: Ondansetron PF 4 MG/2 ML Vial ONE (01:52)
[2019-03-01] MEDS ORDERED: Dexamethasone 10 MG/ML VIAL ONE (02:08)
--- NOTE | 2019-03-01 02:42 | PDOC.FPRHP ---
- History of Present Illness Chief Complaint: Weakness History of Present Illness: Pt is a 48 yo with Renal Clear Cell Carcinoma, HTN, and Anxiety who presents for urinary incontinence and increased weakness. 2 weeks ago was having follow up MRI for bone mets in his arm when they incidentally found a bone met in T2. Left arm is currently broken. They reviewed past images and Has had urinary incontenince. Top of his feet have gone numb. Erectile dysfunction. Reports his hands have gotten numb. When he gets up in the morning he will drag the right leg. Reports the last few mornings has been biting his tongue and did not notice that he was bleeding. Morning is when symptoms are intensified. reports that he has been talking about crazy stuff. One episode reports is that he said that he was seeing people on fire and that his could help go save them. Another time he was talking about pot pies. reports renal cell carcinoma is now in both kidneys and adrenals. Reports bone lesion in hips and spine. Going to [facility] in [place], [place]. Currently on Keytruda, inlyta. ED Course: In the ED, MRI was preformed and showed T12 met. Neurosurg consulted and said give dexamethasone and would come by later today. - Allergies/Adverse Reactions Allergies Allergy/AdvReac Type Severity Reaction Status Date / Time prochlorperazine Allergy Verified 01/26/18 21:37 [From Compazine] - Home Medications Medication Instructions Recorded Confirmed Type Amlodipine [Norvasc] 10 mg PO DAILY 01/26/18 03/01/19 History Gabapentin [Neurontin] 600 mg PO TID 01/26/18 03/01/19 History HYDROcodone Bit/APAP 10/325 [[place]] 1 tab PO Q6HR PRN 01/26/18 03/01/19 History Promethazine [Phenergan] 25 mg PO Q6HR PRN 01/26/18 03/01/19 History Amitriptyline HCl [Elavil] 10 mg PO DAILY 03/01/19 03/01/19 History Axitinib [Inlyta] 5 mg PO Q12HR 03/01/19 03/01/19 History METHadone HCl 10 mg PO QID 03/01/19 03/01/19 History clonazePAM [Clonazepam] 1 mg PO BID 03/01/19 03/01/19 History Comments: Taking medication for bones. Weekly injection. Gabapentin 600 mg TID Amlodipine 10 mg once daily Amitryptyline 25 mg daily unsure for sure of the dose Klonopin dose unknown Hydrocodone 10/325 q6hrs Methadone 4x a day Promethazine - History PMHx: HTN, Renal Cell Carcinoma, Hx of TIA PSHx: Bx of cancer lesions, Tendon surgery on Left ankle Age 5 FHx: Dad- Sariah, Younger Brother- of cancer at age 21 Social: Pt smokes ppd since age 11, Pt quit drinking at age 19, Denies any recreational drug use, Pt reports full code. - Review of Systems General: denies: fever/chills ENT: denies: nasal congestion, rhinorrhea Respiratory: reports: cough, shortness of breath. denies: congestion Cardiovascular: denies: chest pain, edema Gastrointestinal: reports: nausea. denies: vomiting, diarrhea, constipation Genitourinary: reports: incontinence Skin: denies: rashes Musculoskeletal: reports: pain, tenderness Neurological: reports: numbness, weakness - Vital signs BP: 113/88 HR: 64 RR: 16 Tmax: 99.4 Pox: 94% on RA Wt: 83 kg - Physical Exam Constitutional: NAD, awake, alert and oriented HEENT: normocephalic and atraumatic, EOMI, oropharynx clear -HEENT: Pupils equal without accommodation to light. Neck: supple, trachea midline Heart: RRR, normal S1/S2, no murmurs/rubs/gallops, pulses present, no edema Lungs: CTAB, no respiratory distress, good air movement, no rales/rhonchi, no wheezing, no retractions Abdomen: soft, non-tender, bowel sounds present -Abdomen: Abdomen appears distended, but no masses palpated. Musculoskeletal: normal structure, normal tone Neurological: CN II-XII intact, normal sensation -Neurological: He has poor deputy brand inspector strength, UE & LE: 3/5, No cerebellar dyskinesia noted Skin: no rash/lesions Heme/Lymphatic: no unusual bruising or bleeding Psychiatric: normal mood and affect FMR H&P: Results - Labs Result Diagrams: 02/28/19 23:56 02/28/19 23:23 Lab results: WBC 8.7 thou/uL (4.8-10.8) 02/28/19 23:56 Hgb 12.6 g/dL (14.0-18.0) L 02/28/19 23:56 Hct 36.5 % (42.0-52.0) L 02/28/19 23:56 MCV 90.5 fL (78.0-98.0) 02/28/19 23:56 Plt Count 280 thou/uL (130-400) 02/28/19 23:56 Neutrophils % 78.1 % (42.0-75.0) H 02/28/19 23:56 Sodium 140 mmol/L (136-145) 02/28/19 23:23 Potassium 3.9 mmol/L (3.5-5.1) 02/28/19 23:23 Chloride 104 mmol/L (98-107) 02/28/19 23:23 Carbon Dioxide 25 mmol/L (22-29) 02/28/19 23:23 BUN 14 mg/dL (8.9-20.6) 02/28/19 23:23 Creatinine 0.90 mg/dL (0.7-1.3) 02/28/19 23:23 Glucose 104 mg/dL (70-105) 02/28/19 23:23 Calcium 8.6 mg/dL (7.8-10.44) 02/28/19 23:23 Total Bilirubin 0.5 mg/dL (0.2-1.2) 02/28/19 23:23 AST 12 U/L (5-34) 02/28/19 23:23 ALT 15 U/L (8-55) 02/28/19 23:23 Alkaline Phosphatase 72 U/L (40-110) 02/28/19 23:23 Serum Total Protein 6.9 g/dL (6.0-8.3) 02/28/19 23:23 Albumin 4.2 g/dL (3.5-5.0) 02/28/19 23:23 - Radiology Interpretation Other Status: image reviewed by me, report reviewed by me (T. Spine MRI: There is a larger mass involving the posterior element of T12 veterbral body including the laminae, and the posterior spinal processes, extending into the central spinal canal and causing mild to moderate central spinal canal stenosis,with mild spinal cord compression. The lesion measuring about 2.7x1.9x2.1cm. L. SPine MRI - Mild degenerative discogenic disease. No evidence of metastatic disese.) CT scan - head Status: image reviewed by me, pending (On review no lesion or bleed seen. Official read pending.) FMR H&P: A/P - Plan Pt is a 48 yo with Renal Clear Cell Carcinoma, HTN, and Anxiety who presents for urinary incontinence and increased weakness. 1. Cauda Equina Syndrome Urinary dysfunction, Weakness * T. Spine MRI: There is a larger mass involving the posterior element of T12 vertebral body including the laminae, and the posterior spinal processes, extending into the central spinal canal and causing mild to moderate central spinal canal stenosis,with mild spinal cord compression. The lesion measuring about 2.7x1.9x2.1cm. * CPine MRI- Mild degenerative discogenic disease. No evidence of metastatic disease. * Neurosurgery consulted, will come by later today * Dexamethasone 10mg IV ordered 2. Renal Clear Cell Carcinoma with Metasis Take Inlyta and Keytruda * Consulted Palliative for symptom management * Giving [place]pee 10 and Morphine * Continue home Gabpentin 3. HTN * BP stable * Will hold home Amlodpine for now 4. Anxiety * Continue home Amitryptline Code Status: Full Diet: Regular Lines: Peripheral DVT PPx: Lovenox GI PPx: Famotidine Dispo: Onc inpt, LOS > 48H. FMR H&P: Upper Level - Pertinent history I was present with news internship, Dr. Ivan Fowler, PGY1, during the HPI. I scribed the above document. I made edits as needed. See above for details. - Pertinent findings Pt speech is somewhat slurred. There might be some slight facial droop towards the left. CN2-12 grossly intact. - Plan Date/Time: 03/01/19 5380 I, Samy Hickey, PGY3, have evaluated this patient and agree with findings/ plan as outlined by news internship resident. Pertinent changes/additions are listed here. I made edits to above plan. See above for detailed plan. At this time we are admitting patient with concern for cauda equina syndrome due to lesion on T12. Pt has also had recent mental status changes per . We will get Brain MRI to assess for any underlying mets or stroke as patient and report he has not had imaging of head recently. Neurosurgery Fara FERNANDES with Dr. White was contacted by the ER doctor. We will await recs in the morning. Started on dexamethasone at this time. Continued home pain medications. Addendum - Attending - Attending Attestation Date/Time: 03/01/19 6216 I personally evaluated the patient and discussed the management with Dr. Hickey/ Janeth I agree with the History, Examination, Assessment and Plan documented above with any addition or exceptions noted below. 48 yo WM Known PMH Renal cell carcinoma with hx of mets to spine s/p debulking at T 12 level. has been seen at [facility] and known met at T2 level with concern for potential cord compression. Patient having weakness in lower extermities like at time of dx. concerned he has been hallucination more. MRI brain, neurosurgery consultation, dexamethisome. Will call [facility] team to see if any other recommendations. per , patient was told if current chemotherapy regimen did not work would not have any other options for treatment of cancer. Will f/u recommendations from specialists.
[2019-03-01] MEDS ORDERED: Senokot S 8.6-50 MG TAB PO PRN (03:27)
[2019-03-01] MEDS ORDERED: HYDROcodone/Acetaminophen 10/325 mg Tablet PO PRN ×2 (03:27→08:09)
[2019-03-01] MEDS ORDERED: Promethazine 25 MG TAB PO PRN (03:35)
[2019-03-01] MEDS ORDERED: Morphine 4 MG/ML VIAL SLOW IVP PRN ×4 (03:42→16:25)
[2019-03-01 06:00] VITALS: BMI 25.4
[2019-03-01] MEDS ORDERED: Nicotine 21 MG PATCH TD SCH (06:00)
--- NOTE | 2019-03-01 08:08 | MRI ---
PRELIMINARY REPORT/[facility]/EMERGENCY AFTER HOURS PROCEDURE: EXAM: MR Thoracic Spine Without Intravenous Contrast. CLINICAL HISTORY: Patient with known tumor to his bilateral kidneys, bilateral adrenal glands, left shoulder, hip, and spine. reports pt has had new onset incontinence in the morning over the last couple of days, po ssibly due to tumor pressing on the spinal cord at T2. also reports recent increased weakness, f atigue, confusion/mental status changes, loss of appetite, and paresthesias to his fingertips and top s of his feet. pt confirms 's report. pt also reports severe pain to his left kidney, left should er/arm, and across his upper back. pt denies any issues with bowel movements TECHNIQUE: Magnetic resonance images of the thoracic spine without intravenous contrast in multiple planes. CONTRAST: Without COMPARISON: None provided. FINDINGS: SPINAL CORD: Normal cord signal and contour. VERTEBRAE: There is is a small hemangioma in the T7 vertebral body. There is a larger mass involving the posterior element of T12 vertebral body including the laminae, a nd the posterior spinal processes, extending into the central spinal canal and causing mild to modera te central spinal canal stenosis, with mild spinal cord compression. This lesion measuring about 2.7 x 1.9 x 2.1 cm. ALIGNMENT: Bony alignment is anatomic. DEGENERATIVE CHANGES: No significant disc disease. No spinal canal or foraminal stenosis. PARASPINAL SOFT TISSUES: Unremarkable. IMPRESSION: There is a larger mass involving the posterior element of T12 vertebral body including the laminae, a nd the posterior spinal processes, extending into the central spinal canal and causing mild to modera te central spinal canal stenosis, with mild spinal cord compression. This lesion measuring about 2.7 x 1.9 x 2.1 cm. ELECTRONICALLY SIGNED BY: Socorro Amin MD Mar 01, 2019 1:50:45 AM UTILITY MAINTENANCE WORKER FINAL REPORT EMERGENT AFTER HOURS MRI OF THE THORACIC SPINE WITHOUT CONTRAST: FINDINGS/IMPRESSION: I disagree with the findings and impression given in the preliminary report per [facility] phys ician. There is a lesion of the T2 posterior elements and vertebral body, not T12. Postsurgical rodo nges are seen in the upper thoracic region and this could represent postsurgical change. It is diffi cult to evaluate for potential tumor recurrence without contrast. An MRI of the thoracic spine with contrast is recommended for evaluation of this region at T2. POS: [facility]
--- NOTE | 2019-03-01 08:09 | MRI ---
PRELIMINARY REPORT/[facility]/EMERGENCY AFTER HOURS PROCEDURE: EXAM: MR Lumbar Spine Without Intravenous Contrast. CLINICAL HISTORY: Patient with known tumor to his bilateral kidneys, bilateral adrenal glands, left shoulder, hip, and spine. reports pt has had new onset incontinence in the morning over the last couple of days, po ssibly due to tumor pressing on the spinal cord at T2. also reports recent increased weakness, f atigue, confusion/mental status changes, loss of appetite, and paresthesias to his fingertips and top s of his feet. pt confirms 's report. pt also reports severe pain to his left kidney, left should er/arm, and across his upper back. pt denies any issues with bowel movements done w/o contrast per dr 's request TECHNIQUE: Magnetic resonance images of the lumbar spine without intravenous contrast in multiple planes. CONTRAST: Without COMPARISON: None provided. FINDINGS: VERTEBRAE: No acute fracture or focal osseous lesion. ALIGNMENT: Bony alignment is anatomic. SPINAL CORD AND CAUDA EQUINA: No abnormal signal or mass. DEGENERATIVE FINDINGS: There is a mild degenerative discogenic disease at T11-12 and T12-L1. There is a mild degenerative discogenic disease at L4-5 L5-S1. No significant central spinal canal stenosis o r neuroforaminal stem appear PARASPINAL SOFT TISSUES: No paraspinal soft tissue abnormalities appreciated. IMPRESSION: Mild degenerative discogenic disease. No evidence of metastatic disease. ELECTRONICALLY SIGNED BY: Socorro Amin MD Mar 01, 2019 2:06:58 AM REHAB DIRECTOR FINAL REPORT EMERGENT AFTER HOURS MRI OF THE LUMBAR SPINE WITHOUT CONTRAST: FINDINGS/IMPRESSION: I agree with the findings and impression given in the preliminary report per [facility] physici an. There is mild degenerative change in the lumbar spine. No acute abnormality is seen. POS: [facility]
[2019-03-01] MEDS: Famotidine 20 MG TAB PO SCH ×2 (08:23→22:03)
[2019-03-01] MEDS: Enoxaparin Sodium 40 MG/0.4 ML SYRINGE SC SCH (08:23)
[2019-03-01] MEDS: Amitriptyline HCl 10 MG TAB PO SCH (08:24)
[2019-03-01] MEDS: clonazePAM 1 MG TAB PO SCH ×2 (08:24→22:01)
[2019-03-01] MEDS: Gabapentin 300 MG CAP PO SCH ×3 (08:24→22:03)
[2019-03-01] MEDS: Dexamethasone 10 MG/ML VIAL SLOW IVP SCH (08:24)
--- NOTE | 2019-03-01 08:27 | CT ---
PRELIMINARY REPORT/[facility]/EMERGENCY AFTER HOURS PROCEDURE: EXAM: CT Head Without Intravenous Contrast. CLINICAL HISTORY: ER 9.. AMS/Confusion; 48 yo M presents to ED with c/o incontinence. reports pt is terminally ill cancer patient with known tumor to his bilateral kidneys, bilateral adrenal glands, left shoulder, h ip, and spine TECHNIQUE: Axial computed tomography images of the head/brain without intravenous contrast. COMPARISON: None provided. FINDINGS: BRAIN: No acute intraparenchymal hemorrhage. No mass lesion. No CT evidence for acute territorial inf arct. No midline shift or extra-axial collection. VENTRICLES: No hydrocephalus. ORBITS: The orbits are unremarkable. SINUSES AND MASTOIDS: The paranasal sinuses and mastoid air cells are clear. SOFT TISSUES: No significant facial or scalp soft tissue swelling evident. No radiopaque foreign body is seen. BONES: No acute skull fracture. IMPRESSION: No acute intracranial abnormality. ELECTRONICALLY SIGNED BY: Socorro Amin MD Mar 01, 2019 3:49:49 AM INSPECTOR EYEGLASS FRAMES FINAL REPORT EMERGENT AFTER HOURS CT OF THE BRAIN WITHOUT CONTRAST: FINDINGS/IMPRESSION: I agree with the findings and impression given in the preliminary report per [facility] physici an. No evidence of acute intracranial abnormality. POS: [facility]
[2019-03-01] MEDS ORDERED: Gabapentin 300 MG CAP PO SCH (09:00)
[2019-03-01] MEDS: METHadone HCl 10 MG TAB PO SCH ×4 (09:41→22:02)
--- NOTE | 2019-03-01 10:45 | MRI ---
Brain MRI with and without contrast: 03/01/2019 COMPARISON: 11/18/2017 History: Weakness and hallucinations TECHNIQUE: Multiplanar multisequence MR imaging of the brain obtained with and without contrast FINDINGS: The diffusion weighted imaging demonstrates no evidence for acute infarction. The axial gradient echo imaging demonstrates no evidence for intracranial hemorrhage. No midline shift or mass effect. No ventricular enlargement. There is polypoid mucosal thickening involving bilateral ethmoid air cells, the right frontal sinus, and the right maxillary sinus. Arterial flow voids at the axial level of the skull base appear grossly unremarkable on the T2-weight ed imaging. The postcontrast imaging demonstrates no abnormal enhancement within the brain parenchyma. No MR evid ence of intracranial metastatic disease. IMPRESSION: No MR evidence of intracranial metastatic disease.
[2019-03-01] MEDS: hydrOXYzine 25 MG TAB PO SCH ×2 (12:17→17:39)
[2019-03-01] MEDS ORDERED: Magnevist 469MG/ML 20 ML VIAL ONE (13:43)
[2019-03-01] MEDS ORDERED: Morphine 4 MG/ML VIAL SLOW IVP SCH ×2 (16:30→18:45)
[2019-03-01] MEDS ORDERED: Nicotine 14 MG PATCH TD SCH (17:00)
[2019-03-01] MEDS ORDERED: Morphine 10 MG/ML VIAL SLOW IVP PRN (18:45)
--- NOTE | 2019-03-01 22:32 | PDOC.BPN ---
- Brief Progress Note Patient's pain is not improved despite increased dose of morphine to 12mg pain is in L arm where he had previous pathologic fracture as well as his back Will consult anesthesia for MUSHROOM PICKER pump
[2019-03-01] MEDS ORDERED: diphenhydrAMINE 50 MG/ML VIAL IVP PRN (23:07)
[2019-03-01] MEDS ORDERED: Naloxone HCl 0.4 mg/ml Vial IV PRN (23:07)
[2019-03-01] MEDS ORDERED: Promethazine HCl 25 MG/ML VIAL IM PRN (23:07)
[2019-03-01] MEDS ORDERED: diphenhydrAMINE 25 MG CAP PO PRN (23:07)
[2019-03-01] MEDS ORDERED: Ondansetron PF 4 MG/2 ML Vial IVP PRN (23:07)
[2019-03-01] MEDS ORDERED: fentaNYL Citrate/PF 2,000 MCG in Sodium Chloride 0.9% 60 ML IV PRN (23:07)
[2019-03-01] MEDS ORDERED: Zolpidem Tartrate 5 MG TAB PO PRN (23:07)
[2019-03-01] MEDS ORDERED: diphenhydrAMINE 50 MG/ML VIAL IM PRN (23:07)
[2019-03-01] MEDS ORDERED: Communication Order-Pharmacy FS SCH (23:15)
[2019-03-01] MEDS ORDERED: Calcium Carbonate 500 MG ChewTAB PO PRN (23:29)
[2019-03-02] MEDS: hydrOXYzine 25 MG TAB PO SCH ×3 (01:15→12:30)
--- NOTE | 2019-03-02 05:06 | PDOC.FM ---
- Subjective Subjective: Pt states that he is feeling much better after starting the MANAGER INCOME TAX pump. He wears his left sling intermittently but states that his new sling is more comfortable than his previous one and seems to stabilize his arm better. He continues to look forward to hear what neurosurgery plans to do for him as he states he has exhausted his other options for neurosurgery evaluation but no ones accepts his insurance. - Objective Vital Signs & Weight: Vital Signs (12 hours) Temp Pulse Resp BP Pulse Ox 03/02/19 04:39 97.8 F 96 17 111/68 92 L 03/02/19 00:40 58 L 10 L 104/64 94 L 03/02/19 00:35 59 L 10 L 109/66 95 03/02/19 00:30 60 10 L 116/70 94 L 03/02/19 00:25 120/67 03/01/19 20:00 97.5 F L 69 16 140/79 96 Weight Admit Weight 82.554 kg Weight 82.554 kg I&O: 02/28/19 03/01/19 03/02/19 06:59 06:59 06:59 Intake Total 995 Output Total 16 Balance 979 Result Diagrams: 03/02/19 08:40 03/02/19 08:40 Phys Exam - Physical Examination Constitutional: NAD HEENT: moist MMs, sclera anicteric Neck: supple, full ROM Respiratory: no wheezing, no rales, no rhonchi, clear to auscultation bilateral Cardiovascular: RRR, no significant murmur Gastrointestinal: soft, non-tender Musculoskeletal: no edema, pulses present Left arm held against his body, not in sling, humeral pain Neurological: non-focal Psychiatric: normal affect, A&O x 3 Skin: no rash, cap refill <2 seconds Dx/Plan (1) SCC (spinal cord compression) Code(s): G95.20 - UNSPECIFIED CORD COMPRESSION Status: Acute (2) Left humeral fracture Code(s): S42.302A - UNSP FRACTURE OF SHAFT OF HUMERUS, LEFT ARM, INIT Status: Acute (3) Lytic bone lesions on xray Code(s): M89.9 - DISORDER OF BONE, UNSPECIFIED Status: Acute (4) Metastasis to adrenal gland Code(s): C79.70 - SECONDARY MALIGNANT NEOPLASM OF UNSPECIFIED ADRENAL GLAND Status: Acute Qualifiers: Laterality: right Qualified Code(s): C79.71 - Secondary malignant neoplasm of right adrenal gland (5) Renal cell carcinoma of left kidney Code(s): C64.2 - MALIGNANT NEOPLASM OF LEFT KIDNEY, EXCEPT RENAL PELVIS Status : Suspected (6) HTN (hypertension) Code(s): I10 - ESSENTIAL (PRIMARY) HYPERTENSION Status: Chronic - Plan Plan: Pt is a 48 yo with Renal Clear Cell Carcinoma, HTN, and Anxiety who presents for urinary incontinence and increased weakness. Spinal Nerve Compression - Urinary dysfunction, Weakness * T. Spine MRI: There is a questionable larger mass involving the posterior element of T2 vertebral body in the area of post-surgical changes * This was an over-read from the night as a correction from previously stated T12 lesion. Recommendation was for contrast study to further evaluate * Lumbar spine MRI: Mild degenerative disc * CPine MRI- Mild degenerative discogenic disease. No evidence of metastatic disease. * MRI Brain: No acute abnormalities - Neurosurgery consulted, recommended Dexamethasone 10mg IV and Dr. Paniagua will review his previous imaging compared to current and make further recommendations regarding surgical intervention vs medical management Renal Clear Cell Carcinoma with Metastasis - Take Inlyta and Keytruda - Consulted Palliative for symptom management - Pts home methadone, morphine, and norco was not controlling pain - Had titrated his morphine up over yesterday and last night with no improvement\ - Anesthesia consulted overnight for MANAGER INCOME TAX placement Left Humeral Fracture - Not surgically ammenable - New immobilizer sling ordered, pt instructed to wear it more consistently to assist with healing HTN - BP stable - Will hold home Amlodpine for now Anxiety - Continue home Amitryptline Code Status: Full Diet: Regular Lines: Peripheral DVT PPx: Lovenox GI PPx: Famotidine Dispo: Onc inpt, LOS > 48H. Addendum - Attending - Attending Attestation Date/Time: 03/02/19 4748 I personally evaluated the patient and discussed the management with Dr. Brandt I agree with the History, Examination, Assessment and Plan documented above with any addition or exceptions noted below. Unfortunate gentleman with advanced renal cell carcinoma with pathologic fracture left humerus not amenable to XRT as he has received maximum radiation dosage continue in sling.Patient pain in arm more than related to back. Patient pain currently controlled with scheduled methadone and MANAGER INCOME TAX fentanyl. Will continue bowel regimen and pending Neurosurgery recommendation for T2 lesion what else we can offer other than pain control/decadron at this point.
[2019-03-02] MEDS: Gabapentin 300 MG CAP PO SCH ×2 (08:02→14:28)
[2019-03-02] MEDS: Famotidine 20 MG TAB PO SCH (08:02)
[2019-03-02] MEDS: Dexamethasone 10 MG/ML VIAL SLOW IVP SCH (08:03)
[2019-03-02] MEDS: Enoxaparin Sodium 40 MG/0.4 ML SYRINGE SC SCH (08:03)
[2019-03-02] MEDS: Amitriptyline HCl 10 MG TAB PO SCH (08:03)
[2019-03-02 09:01] LABS: #Lymphocytes 1.2 thou/uL (1.20-3.40); #Neutrophils 13.7 thou/uL (1.40-6.50); %Basophils 0.1 % (0.0-1.0); %Eosinophils 0.1 % (0.0-10.0); %Lymphocytes 7.7 % (21.0-51.0); %Monocytes 6.2 % (0.0-10.0); Hemoglobin 12.1 g/dL (14.0-18.0); Mean Corpuscular Hemoglobin 31.2 pg (27.0-31.0); Mean Corpuscular Volume 91.8 fL (78.0-98.0); Mean Platelet Volume 7.8 fL (7.4-10.4); Platelet Count 279 thou/uL (130-400); Red Blood Cell (RBC) Count 3.88 mill/uL (4.70-6.10); White Blood Cell (WBC) Count 15.9 thou/uL (4.8-10.8)
[2019-03-02 09:21] LABS: ALT (SGPT) 29 U/L (8-55); AST (SGOT) 16 U/L (5-34); Alkaline Phosphatase 65 U/L (40-110); Anion Gap 13 mmol/L (10-20); BUN (Urea Nitrogen) 15 mg/dL (8.9-20.6); Bilirubin, Total 0.2 mg/dL (0.2-1.2); Calc. Creatinine Clearance 131 mL/min (70-130); Calcium 8.6 mg/dL (7.8-10.44); Carbon Dioxide 20 mmol/L (22-29); Chloride 109 mmol/L (98-107); Estimated GFR-MDRD Greater than 90; Globulin 2.8 g/dL (2.4-3.5); Glucose 135 mg/dL (70-105); Potassium 4.1 mmol/L (3.5-5.1); Protein, Total 6.8 g/dL (6.0-8.3); Sodium 138 mmol/L (136-145)
[2019-03-02] MEDS ORDERED: Polyethylene Glycol 3350 17 GM Packet PO PRN (11:45)
[2019-03-02 16:51] VITALS: BP 148/81; TEMP 98.2
--- NOTE | 2019-03-03 02:33 | DIS ---
DATE OF ADMISSION: 03/01/2019 DATE OF DISCHARGE: 03/02/2019 ADMITTING ATTENDING: Aaron Tafoya MD. DISCHARGE ATTENDING: Matt Parra MD RESIDENT: Dickson Brandt DO CONSULTS: 1. Neurosurgery, Dr. Shepherd. 2. Palliative Care, YONAS Pinon. PROCEDURES PERFORMED: None. IMAGING: Lumbar spine MRI findings mild degenerative discogenic disease. No evidence of metastatic disease. Thoracic spine MRI findings over-read read that there is a lesion at the T2 posterior elements and vertebral body. Postsurgical changes are seen in the upper thoracic region and this could represent postsurgical changes and is difficult to evaluate for potential tumor recurrence without contrast. Brain CT without contrast, no acute intracranial abnormality. Brain MRI with and without contrast. Findings, no MRI evidence of intracranial metastatic disease. PRIMARY DIAGNOSES: Metastatic renal cell carcinoma, lytic bone lesions, left humeral fracture. SECONDARY DIAGNOSES: Urinary incontinence, paresthesias. DISCHARGE MEDICATIONS: 1. Phenergan 25 mg q.6 hours p.r.n. 2. [place] 1 tab p.o. q.6 hours p.r.n. 10/325. 3. Norvasc 10 mg p.o. daily. 4. Neurontin 600 mg p.o. t.i.d. 5. Inlyta 5 mg p.o. q.12 hours. 6. Methadone 10 mg p.o. q.i.d. 7. Elavil 10 mg p.o. daily. 8. Clonazepam 1 mg p.o. b.i.d. 9. MiraLAX 17 g p.o. daily p.r.n. 10. Senokot-S 2 tabs p.o. b.i.d. p.r.n. 11. Morphine sulfate 20 mg per 1 mL, 0.5-1 mL p.o. q.3 hours p.r.n. DISCONTINUED MEDICATIONS: Hydrocodone 10/325. HISTORY OF PRESENT ILLNESS AND HOSPITAL COURSE: The patient is a 48-year-old male with history of renal cell carcinoma that is known to be metastatic to both kidneys, right adrenal gland, left humerus, and multiple spinal levels, presented to the ED with complaints of urinary incontinence and increased weakness. The patient stated that he has had these symptoms in the past, which represented an advancement in his metastatic cancer. The patient complained of urinary continence occurring today, as well as progressive numbness to the top of his feet and erectile dysfunction. He states that his symptoms intensified following a long car ride from the patient's home to [place] to visit his grandchildren today. Workup in the emergency department showed an MRI of the thoracic spine that was concerning for possible new progression of his old lytic bone lesions at T2 with new compression of spinal cord. Neurosurgery was consulted and instructed to give dexamethasone and to admit the patient to the hospital. Family Medicine subsequently admitted the patient to the medical floor and began pain management and steroid therapy. The patient stated throughout his stay that his pain continued to increase and was not controlled with increasing doses of morphine. The patient was subsequently placed on [employer] fentanyl pump with control of his pain that he localizes primarily to his left arm and upper back. The patient's oncologist, Dr. Shea, was contacted. He stated that the patient's chemotherapy regimen had ceased working over the past few months and the patient's radiation oncologist stated that the patient was no longer a candidate for further therapies. The patient has been looking for a neurosurgeon, who would take the patient's insurance to address his spinal lesions, however, has been unsuccessful. After speaking with Neurosurgery who reviewed the patient's imaging from his stay and spoke to his oncologist at [facility], they felt that there was nothing that they could do for the patient from a surgical standpoint that would provide any relief of his symptoms. The patient was also seen by Palliative Care, who talked to the patient about symptom management and what they had to offer. They also discussed hospice, however, patient indicated that he is not interested in pursuing this route at this time. The patient subsequently requested to be discharged home into the care of his and agreed to follow up accordingly with his oncologist at [facility]. The patient was discharged with new regimen of immediate release morphine for his progressive cancer-related pain. The patient and were instructed on appropriate use of this medication prior to discharge and expressed understanding. DISCHARGE INSTRUCTIONS: 1. Location: Home. 2. Diet: Regular, no restrictions. 3. Activity: As tolerated, reduce use of left arm and continue consistent use of left arm sling for stabilization of left humeral fracture. 4. Followup: PCP within 7 days, oncologist, Dr. Shea, as directed. Job ID: [id number]
== END 2019-03-02 17:05 | disposition home or self-care (01) | DRG 543 ==
LOC: ERS 22:39 → T4-B 03-01 03:20
PROVIDERS: ADMIT Family Medicine; ATTEND Family Medicine
DX: C79.51 Secondary malignant neoplasm of bone (principal); C64.2 Malignant neoplasm of left kidney, except renal pelvis; G83.4 Cauda equina syndrome; G95.20 Unspecified cord compression; C79.71 Secondary malignant neoplasm of right adrenal gland; M84.422A Pathological fracture, left humerus, initial encounter for fracture; C64.1 Malignant neoplasm of right kidney, except renal pelvis; F41.9 Anxiety disorder, unspecified; I10 Essential (primary) hypertension; F17.210 Nicotine dependence, cigarettes, uncomplicated; Z79.899 Other long term (current) drug therapy; Z86.73 Personal history of transient ischemic attack (TIA), and cerebral infarction without residual deficits
CPT/HCPCS: 36415; 70450; 70553; 72146; 72148; 80053; 83036; 85025; A9579; J1100; J1650; J2270; J2405; J3010; J3490; Q0169